=== PATIENT | female | born 1945 | race Caucasian/White ===

== ENCOUNTER 2024-08-28 12:10 | Emergency (ER) | payer MEDICARE, SELFPAY ==
--- NOTE | ~2024-08-28 | CT_ITS ---
EXAMINATION: CT CERVICAL SPINE WITHOUT CONTRAST CLINICAL INFORMATION: Mechanical fall, neck injury and pain COMPARISON: None available. TECHNIQUE: Multiple 3.0 and 0.6 mm axial images were obtained from base of skull to T1 levels without IV contrast enhancement. Sagittal and coronal 2.0 mm bone window images were reconstructed from axial image data. This CT examination was performed using dose optimization techniques as appropriate, variously including the following: *Automated exposure control *Adjustment of mA and/or kV according to patient size (this includes techniques or standardized protocols for targeted exams where dose is matched to indication/reason for exam; i.e. extremities or head) *Use of iterative reconstruction technique DLP: 272.38 mGy-cm FINDINGS: C1/C2: Bony structures are intact with normal alignment. There is no spinal stenosis. C2/C3: Bony structures are intact with normal alignment. There is no spinal stenosis. There is moderate asymmetric left C2/C3 neural foraminal stenosis. Bilateral apophyseal joints are intact with normal alignment. C3/C4: Bony structures are intact with normal alignment. There is no spinal stenosis. Bilateral C3/C4 neuroforamina are patent. Bilateral apophyseal joints are intact with normal alignment. C4/C5: Bony structures are intact with normal alignment. There is marked decrease in intervertebral disc height. Sharp anterior and posterior syndesmophytes are present. There is no spinal stenosis. There is moderate asymmetric left C4/C5 neural foraminal stenosis. Bilateral apophyseal joints are intact with normal alignment. C5/C6: Bony structures are intact with normal alignment. There is marked decrease in intervertebral disc height. Sharp anterior syndesmophytes are present. There is no spinal stenosis. Bilateral C5/C6 neuroforamina are patent. Bilateral apophyseal joints are intact with normal alignment. C6/C7: Bony structures are intact with normal alignment. There is marked decrease in intervertebral disc height. Sharp anterior syndesmophytes are present. There is no spinal stenosis. Bilateral C6/C7 neuroforamina are patent. Bilateral apophyseal joints are intact with normal alignment. C7/T1: Bony structures are intact with normal alignment. Sharp anterior syndesmophytes are present. There is no spinal stenosis. Bilateral C7/T1 neuroforamina are patent. Bilateral apophyseal joints are intact with normal alignment. Multilevel bilateral apophyseal joint and uncovertebral joint osteoarthritis with loss of joint space, sclerosis, facet hypertrophy and osteophytosis are seen. CT/CT cervical spine wo IV con IMPRESSION: 1. No evidence of acute fracture or dislocation in the cervical spine. 2. Moderate asymmetric left C2/C3 and C4/C5 neural foraminal stenosis. 3. Multilevel degenerative cervical spondylosis. Fleischner guidelines were followed. Electronically signed by: Danielle Montgomery MD 08/28/2024 03:19 PM [facility]
--- NOTE | ~2024-08-28 | CT_ITS ---
EXAMINATION: CT HEAD WITHOUT CONTRAST CLINICAL INFORMATION: Mechanical fall. Blunt head trauma without loss of consciousness, significant head injury and posttraumatic headache. COMPARISON: None available. TECHNIQUE: Contiguous axial imaging was performed from the skull base to vertex without intravenous administration of contrast. This CT examination was performed using dose optimization techniques as appropriate, variously including the following: *Automated exposure control *Adjustment of mA and/or kV according to patient size (this includes techniques or standardized protocols for targeted exams where dose is matched to indication/reason for exam; i.e. extremities or head) *Use of iterative reconstruction technique DLP: 789.75 mGy-cm FINDINGS: Ventricles, sulci and cisterns are dilated. There is no midline shift, no abnormal intra- or extra- axial fluid accumulation. Grimm and white matter differentiation is normal. Bone window images show no evidence of skull fracture. Polypoid mucosal lesion is seen at anterior medial corner of right maxillary sinus. CT/CT head/brain wo IV con IMPRESSION: 1. Mild age related cerebral atrophy. 2. No intracranial hemorrhage or skull fracture is seen. 3. No evidence of space occupying lesion could be found. 4. The current plain CT scan of the brain shows no diagnostic evidence of acute cerebral infarction. Electronically signed by: Danielle Montgomery MD 08/28/2024 03:37 PM EST
--- NOTE | ~2024-08-28 | XR_ITS ---
EXAMINATION: XR FOOT, RIGHT CLINICAL INFORMATION: fall, dorsal tenderness COMPARISON: None available. TECHNIQUE: AP, lateral, and oblique views of the right foot. FINDINGS: There is mild osteopenia. No fracture, dislocation, or suspicious bone lesion. Normal alignment. There is been prior osteotomy of the first MTP joint with an oblique screw in the distal first metatarsal, and prosthesis in the proximal phalanx of the first digit. There is a small dorsal calcaneal spur. Forefoot, midfoot, and hindfoot otherwise appear normal. No soft tissue abnormalities. XR/XR foot RT min 3V IMPRESSION: No acute findings right foot. Electronically signed by: Joshua Lovell MD 08/28/2024 03:13 PM [facility]
--- NOTE | ~2024-08-28 | XR_ITS ---
EXAMINATION: XR ANKLE, RIGHT CLINICAL INFORMATION: fall, tenderness COMPARISON: None available. TECHNIQUE: AP, lateral, and mortise views of the right ankle. FINDINGS: Normal bony mineralization. No fracture, dislocation, or suspicious bone lesion. Normal alignment. Mortise is intact. Talar dome is normal. Small corticated osseous density abutting the lateral malleolus is likely on the basis of old ligamentous injury. There is a small dorsal calcaneal spur. No joint effusion. Soft tissues appear normal. XR/XR ankle RT 2V IMPRESSION: No acute findings right ankle. Electronically signed by: Joshua Lovell MD 08/28/2024 03:11 PM [facility]
--- NOTE | ~2024-08-28 | CT_ITS ---
EXAMINATION: CT FACIAL BONES WITHOUT CONTRAST CLINICAL INFORMATION: Mechanical fall, facial injury, abrasions COMPARISON: None available. TECHNIQUE: Multiple 2.0 mm axial images of the facial bones were obtained without IV contrast enhancement. Bone window and soft tissue window images were reconstructed. Coronal and sagittal images of facial bones were reconstructed from axial image data. This CT examination was performed using dose optimization techniques as appropriate, variously including the following: *Automated exposure control *Adjustment of mA and/or kV according to patient size (this includes techniques or standardized protocols for targeted exams where dose is matched to indication/reason for exam; i.e. extremities or head) *Use of iterative reconstruction technique DLP: 267.86 mGy-cm FINDINGS: The visualized facial bones including bilateral zygomatic arches, bony orbits, pterygoid plates, mandibular rami and body of mandible are intact. Nasal bones are intact. Nasal septum shows mild buckling to the left by 0.2 cm. Polypoid mucosal lesion is seen at anterior medial corner of right maxillary sinus, measuring 0.8 cm in AP diameter, 0.8 cm in width, 1.3 cm in vertical height. Bilateral ethmoid sinuses show mild mucosal thickening. Bilateral sphenoid sinuses and frontal sinuses are clear. CT/CT facial bones wo IV con IMPRESSION: 1. No evidence of acute facial bone fracture. 2. Polypoid mucosal lesion at anterior medial corner of right maxillary sinus. 3. Mild buckling of nasal septum to the left by 0.2 cm. Electronically signed by: Danielle Montgomery MD 08/28/2024 03:11 PM [facility]
--- NOTE | ~2024-08-28 | XR_ITS ---
EXAMINATION: XR HUMERUS, RIGHT CLINICAL INFORMATION: fall with swelling COMPARISON: None available. TECHNIQUE: AP and lateral views of the right humerus. FINDINGS: Mildly comminuted spiral displaced fracture of the mid humeral diaphysis. There is approximately 1.4 cm of posterior lateral displacement and minimal posterior angulation of the distal fracture fragment. No significant override seen. There is soft tissue swelling surrounding the right humerus. The remainder of the bony and soft tissue structures appear intact and normal. XR/XR humerus RT IMPRESSION: 1. Mildly comminuted displaced spiral fracture mid right humeral diaphysis. Electronically signed by: Joshua Lovell MD 08/28/2024 03:04 PM [facility]
[2024-08-28 12:16] VITALS: BP 119/71; BP 120/70; PULSE 68; PULSE 74; RESP 20; TEMP 36.5; O2SAT 96; O2SAT 99; BMI 21.9
--- NOTE | 2024-08-28 12:17 | ED.GENADULT ---
HPI - General Adult General Chief complaint: Fall Stated complaint: TRIP/FALL,RUE DEFORMITY/PAIN,-LOC,-THINNERS PE EMS Time Seen by Provider: 08/28/24 12:17 Source: patient, EMS and RN notes reviewed Mode of arrival: EMS Limitations: no limitations History of Present Illness ED Provider: Meron HPI narrative: Patient is a 79-year-old female with history of hypothyroidism presenting to the emergency department with complaint of right upper arm pain and swelling after a fall prior to arrival. Patient states that she was ironing when she heard the phone ring and ran to answer the phone, tripping over the cord to the iron. She states that she fell onto her face and her right outstretched arm. Also complains of right ankle and dorsal foot pain. Medicated with IM fentanyl by EMS. Reports some numbness to right upper arm but able to move all fingers of right hand. Denies headache, vision changes, neck or back pain. MD complaint: arm pain Onset (ago): minute(s) Severity: severe Quality: aching Pain Consistency: constant Associated symptoms: other Related Data Previous Rx's ?Medication ?Instructions ?Recorded morphine 15 mg immediate release 15 mg PO Q8H PRN severe pain 08/28/24 tablet (scale score 7-10) #10 tabs ondansetron 4 mg disintegrating 4 mg PO Q8H PRN nausea and 08/28/24 tablet vomiting #10 tabs Allergies Allergy/AdvReac Type Severity Reaction Status Date / Time No Known Allergies Allergy Verified 08/28/24 12:23 Review of Systems Review of Systems: As per HPI Yes all other systems are reviewed and are negative Constitutional: Constitutional: Reports as per HPI [facility] Social History Social History Smoked in Last 30 Days: No Use of substances other than those prescribed or required for medical reasons: No Advance Directives: No Advance Directives Information Provided: Yes Physical Exam ED Vital Signs: Vital Signs - 24 hr 08/28/24 12:16 08/28/24 15:39 Temperature 97.7 F Pulse Rate 68 69 Respiratory Rate 20 18 Blood Pressure 119/71 99/50 L Pulse Oximetry 99 93 Oxygen Delivery Method Room Air Room Air BMI result Body Mass Index 21.9 Vital signs have been reviewed and appear to be correct. Blood pressure normal. Heart rate normal. Respiratory rate normal. Temperature normal. Oxygen saturation normal. Const General: cooperative, healthy appearing and no acute distress Orientation/consciousness: oriented to person, oriented to place, oriented to time and patient oriented x3 Limitations: no limitations [facility] Head: Yes normocephalic Head images: 1. abrasion 2. abrasion Ears: external ears normal and TM's normal bilaterally General nose exam: Normal external nose present, Normal nasal mucous membranes and turbinates present, Normal septum present and No nasal discharge present Face and sinus: Yes face symmetric and Yes sinus tenderness (left maxillary) Mouth: Normal oral and palatal mucosa present, oropharynx normal and moist mucous membranes Throat: Yes uvula midline Eyes Pupils: Equal, round and reactive pupils present EOM: EOMs intact bilaterally Neck Neck: Yes normal visual inspection, Yes full ROM, Yes trachea midline, Yes supple and No anterior neck swelling Chest Chest palpation & inspection: normal inspection of the chest and normal palpation of entire chest wall Resp Effort & Inspection: normal respiratory effort and able to speak in complete sentences Auscultation: clear to auscultation bilaterally Cardio Rate: regular rate Rhythm: regular rhythm Heart sounds: S1 normal heart sound present and S2 normal heart sound present GI Palpation (GI): Soft to palpation and nontender Auscultation: normoactive bowel sounds General: Yes no CVA tenderness Back/Spine/Pelvis Back: no CVA tenderness Skin General skin exam: elasticity normal and turgor normal Neuro General: oriented to person, oriented to place, oriented to time, patient oriented x3, moves all extremities, no focal motor deficits and CN's II-XI intact bilaterally Cranial nerves: Yes Equal, round and reactive pupils present Cognition (Neuro): normal cognition Extrem General: Yes full ROM, Yes no pedal edema and Yes no calf tenderness Right upper extremity: shoulder/upper arm Details: tenderness, swelling Location: of the mid-shaft humerus and deformity Location: of the mid-shaft humerus and Extremity exam: right hand Details: neuromotor exam normal, neurosensory exam normal, vascular exam Details: radial pulse present and normal ROM of fingers Right lower extremity: ankle Details: normal to inspection and tenderness Location: of the medial malleolus; no swelling and no ecchymosis and foot Details: tenderness Location: of the dorsal foot Location: proximally and vascular exam Details: dorsalis pedis pulse present, posterior tibial pulse present and normal capillary refill Psych Mental Status: mental status grossly normal Affect: normal affect Thought process: Normal thought process present Medications Administered Generic Name Dose Route Start Last Admin Trade Name Frenegrita PRN Reason Stop Dose Admin Sodium Chloride 500 mls @ 500 mls/hr 08/28/24 15:45 08/28/24 15:47 Ns IV 08/28/24 16:44 500 mls/hr .Q1H CIELO Administration Discontinued Medications Generic Name Dose Route Start Last Admin Trade Name Lesli PRN Reason Stop Dose Admin Morphine Sulfate 4 mg 08/28/24 12:22 08/28/24 12:33 Morphine Sulfate 4 Mg/Ml Cartridge IVPUSH 08/28/24 12:23 4 mg ONCE ONE Administration Protocol Morphine Sulfate 2 mg 08/28/24 15:36 08/28/24 15:47 Morphine Sulfate 2 Mg/Ml Cartridge IVPUSH 08/28/24 15:37 2 mg ONCE ONE Administration Protocol Ondansetron HCl 4 mg 08/28/24 13:15 08/28/24 14:52 Ondansetron Hcl 4 Mg/2 Ml Vial IVPUSH 08/28/24 13:16 4 mg ONCE ONE Administration Ondansetron HCl 4 mg 08/28/24 15:36 08/28/24 15:47 Ondansetron Hcl 4 Mg/2 Ml Vial IVPUSH 08/28/24 15:37 4 mg ONCE ONE Administration Medical Decision Making Medical Decision Making MDM Narrative: Patient is a 79-year-old female with history of hypothyroidism presenting to the emergency department with complaint of right upper arm pain and swelling after a fall prior to arrival. On exam patient is awake, A+Ox3, VS WNL, afebrile, normal neurological exam without focal deficits, physical exam findings as above. Given reported symptoms and physical exam findings, initial differential includes humeral fracture, ICH, skull or cervical vertebral fracture or subluxation, facial fracture, right ankle/foot fracture. X-ray right humerus notable for mildly comminuted displaced spiral fracture mid right humeral diaphysis. No acute fracture right ankle or foot. CT head and C-spine without evidence of ICH, skull or cervical vertebral fracture or subluxation. CT facial bones notable for no acute facial bone fracture. My interpretation is in agreement with the radiologist's interpretation. Case discussed with albaro White who recommends discharge home in sling with outpatient ortho follow-up. Results discussed with patient and family and all questions answered. Patient feels comfortable with discharge home, was offered PT eval/case management which she declined. States that she has previously fractured her right wrist and is comfortable only using her left arm. Will discharge with prescription for Zofran and morphine, discussed with patient that this can cause drowsiness leading to increased risk for falls and should be used with caution. Patient and significant other verbalized understanding of this. Will refer patient to orthopedics for further evaluation and management of fracture. Return precautions discussed with patient and family at bedside. Patient and family verbalized understanding of and agreement with plan. Differential Diagnosis Differential Diagnoses: The differential diagnosis associated with the presentation includes As per [facility] Admission/Observation Consideration of admission/observation: Escalation of care including admission/observation considered Patient would have been admitted to the hospital had their work up had any findings where hospital admission was appropriate and their clinical presentation warranted hospital admission. Consult Healthcare Provider Management of the patient was discussed with: Road Roller Operator (albaro White) Independent Interpretation I performed an independent interpretation of an: Plain X-Ray and CT Scan Radiology Impression Discussion of test interpretation with radiology: I have reviewed the radiologist's reading. Radiologist Impression: IMPRESSION: 1. Mild age related cerebral atrophy. 2. No intracranial hemorrhage or skull fracture is seen. 3. No evidence of space occupying lesion could be found. 4. The current plain CT scan of the brain shows no diagnostic evidence of acute cerebral infarction. IMPRESSION: 1. No evidence of acute facial bone fracture. 2. Polypoid mucosal lesion at anterior medial corner of right maxillary sinus. 3. Mild buckling of nasal septum to the left by 0.2 cm. MPRESSION: 1. No evidence of acute fracture or dislocation in the cervical spine. 2. Moderate asymmetric left C2/C3 and C4/C5 neural foraminal stenosis. 3. Multilevel degenerative cervical spondylosis. IMPRESSION: 1. Mildly comminuted displaced spiral fracture mid right humeral diaphysis. IMPRESSION: No acute findings right foot. MPRESSION: No acute findings right ankle. Independent Historian Clinical information obtained from an independent historian. History obtained from or confirmed by: Spouse External Record Review External record reviewed: Inpatient record, Office record and Outpatient record Prescription Management I considered prescription management with: Pain Medication and Other Discharge Plan Discharge Clinical Impression: Closed right humeral fracture Patient Disposition: Home, Self-Care Instructions: Arm Fracture in Adults (ED), How to Use a Sling (ED), ORIF of an Arm Fracture (DC) Additional Instructions: You have been evaluated in the emergency department today for injuries after a fall. Your x-ray shows a significant fracture of your right upper arm (humerus). We have placed you in a sling and swathe which should remain in place until you see the orthopedic specialists. Please rest and ice your arm, and use pillows for splinting as needed. We recommend you take 600mg ibuprofen every 6 hours or 650mg Tylenol every 6 hours as needed for pain. If needed you can alternate these medications as they take 1 medication every 3 hours. For instance at noon take ibuprofen, then at 3:00 p.m. take Tylenol, then at 6:00 p.m. take ibuprofen. You are being prescribed morphine for severe pain. Please note, this medication can make you drowsy and increase your risk for falls, use with caution and do not take if you are home alone. You are being prescribed ondansetron for nausea, use this as prescribed. Call the orthopedic office to schedule a follow-up appointment, they will not call you. Return to the emergency department if you experience worsening pain, numbness, tingling, change of color in your arm/hand, or any other concerning symptoms. Prescriptions: New ondansetron 4 mg tablet,disintegrating 4 mg PO Q8H PRN (Reason: nausea and vomiting) Qty: 10 0RF morphine 15 mg tablet 15 mg PO Q8H PRN (Reason: severe pain (scale score 7-10)) Qty: 10 0RF Rx Instructions: Partial Fill upon patient request. [place] [facility] [place]Provider Group] - 1 day (Mildly comminuted displaced spiral fracture mid right humeral diaphysis.) Print Language: Turkish
[2024-08-28] MEDS: Morphine Sulfate 4 MG/ML CARTRIDGE IVPUSH (12:33)
--- OUTSIDE RECORDS SUMMARY | 2024-08-28 12:38 | XMS_ITS | Patient Health Record ---
Author Organization [facility] daniel Rochelle Address [address] [place] [address] Care Team Providers Care Improvement Director Name Role Phone Elia Wilkins MD, [facility] Provi ricardo Unavailable EsvinQuang Unavailable [phone] Allergies No Known Allergies Reason For Referral No Information Medications Medication SIG (Take, Route, Frequency, Duration) Notes Start Date End Date Status Magnesium Not-Taking Probiotic Not-Taking Turmeric Not-Taking Glucosamine Not-Taki ng Vitamin C Not-Taking Multivitamin Not-Haile ing Calcium Not-Taking Levothyroxine Sodium 100 MCG 1 tablet Orally Once a day Active Premarin 0.625 MG Orally No t-Taking Tretinoin 0.05 % 1 application in the evening to face Externally Once a day Active Immunizations Vaccine Route Administration Date Status Comme nts Influenza Unknown 09/21/2017 Administered Social History Tobacco Use: Social History Observation Description Date Details (start date - stop date) Former Smoker NA - NA Tobacco Use/Smoking Question Answer Notes Are you a: former smoker Additional Findings: Tobacco Non-User Current no n-smoker Alcohol Screen Question Answer Notes Did you have a drink containing alcohol in the p ast year? Yes Points 0 Interpretation Negative Tobacco use other than smoking: Question Answer Notes Are you an other tobacco user? No Problems Problem Type SNOMED Code ICD Code Onset Dates Problem Status W/U Status Risk Notes Problem Tinea unguium (143570382) Tinea unguium (B35.1) Active confirmed Topical treatment since Plan Of Treatment Pending Test Test Name Order Date [id number] NAIL, 6 OR MORE 12/14/2020 Insurance Providers Payer Name Payer Address Payer Phone Subscriber Number Group Number Insured Name Patient Relationship to Insured Coverage Start Date Coverage End Date Medicare National [facility] [employer] [address] [place] [address] [id number] Mary Ray Self - patient is the insured [employer] [address] [place] [address] [id number] [employer] Mary Self - patient is the insured Medical (General) History Medical History History ICD Code Anemia Arthritis Back,Hip,and Knee pain Broken bones Diverticulosis Hiatal hernia chronic sinusitis Thyroid disorder Measles Mumps Joint implants/screws Cataracts Osteoporosis thyroid Chicken pox Surgical History Surgery Date(Month/Year) D&C 1965 Right great toe - Osmin implant 2004
--- OUTSIDE RECORDS SUMMARY | 2024-08-28 12:38 | XMS_ITS | Data Portability ---
Author Organization [facility] Address [address] [facility], [address] [place] [address] Care Team Providers Care Supervisor Kennel Name Role Phone KYA PATEL Primary Care Provide r Assessment No assessment recorded. Plan of Treatment Reminders Order Date Submit Date Provider Last Modified By Organization Details Last Modified Time Details Appointments None recorded. Lab None recorded. 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 Strengtheni ng after 4 weeks if tolerates1- 3 x per week 6-8 weeks 2022 023 [email or web address] Not available 12:38:05 Procedures None recorded. Surgeries orthopaedic surgery (SURG) 2021 022 [facility], [address] [place], [address], 2 08:44:07 Imaging None recorded. Medication Orders None recorded. Patient TargetsNo targets recorded. Patient Instructions Encounter Date Encounter Id Patient Instructions Last Modified By Organization Details Last Modified Time 04/13/2022 [id number] The findings, diagnosis, and options are discussed including potential treatments. The decision was made to continue therapy and home stretching. She can continue with the Dynasplint 1-2 months. This is based on symptoms and clinical findings. All questions are answered. Follow up will be arranged as noted in several months. We will consider timing for small ring finger MP releases should this be needed. Patient will call if problems or questions. Not available 04/13/2022 13:54:25 07/17/2022 [id number] The findings, diagnosis, and options are discussed with the patient. The potential surgical procedure options were also outlined. Based on symptoms and findings, the decision was made to plan for wrist extensor tenolysis 2nd to 5th compartments, ring and small MP contracture releases and possible botox injections for FCU and FCR muscles. The risks and benefits are fully outlined including (but not limited to): infection, persistent symptoms, limited bone healing, instability, heterotopic bone, complications of hardware or implant and neurovascular or tendon injury. All questions are answered. Pre-testing to be arranged. Follow up will be at the time of surgery. The patient will call if problems or questions. Not available 07/17/2022 22:36:43 09/21/2022 [id number] Patient doing we ll s/p R wrist extensor tenolysis, R RF MP joint contracture release, R SF MP joint contracture release DOS 09/15/22. Discussed with patient that during surgery even after tenolysis she still had significant stiffness. Discussed that a for her to make a functional fist, it would be helpful if her wrist was held at neutral or slightly extended, which is difficult for her. We will initiate occupational therapy, as well as provide her with a wrist brace to keep wrist up in a functional position. Followup in 4 to 5 weeks - telehealth visit The patient is seen and examined with Dr. Ponce. Agree with above findings and plan. SHEILA Not available 09/21/2022 13:09:44 11/16/2022 [id number] Patient doing we ll s/p R wrist extensor tenolysis, R RF MP joint contracture release, R SF MP joint contracture release DOS 09/15/22. She will complete course of therapy. We reviewed possible benefits for wrist fusion. She would like to avoid additional surgery. She will try to golf in 2 months. If issues with this she would like to return for evaluation. She will call otherwise if problems or questions. Not available 11/16/2022 13:30:48 Reason for Referral s/p ring small MP joint cont racture releases and extensor tenolysis 2-6 compartmentsevaluation and treatmentA AA PROM for wrist and fingers. Strengthening after 4 weeks if tolerates1-3 x per week 6-8 weeks Referring Physician: Paris Gomes, Orthopedic Surgery, Encounter Date: 09/21/2022 Results Created Date Observation Date Name Description Value Unit Range Abnormal Flag Note LastModifiedBy Organization Detail LastModifiedTime 07/17/20 22 07/17/2022 xr hand right 3 views minim um Fin al Report EXAM#: [id number] PROCED URE: DXR 0068 XR HAND RIGHT 3 VIEWS MINIMU M Jul 17 2022 1:38PM CLINIC AL INDICA TION: pain in right wrist Compar farrah: None FINDIN GS: The bones are osteop enic. Old tracks from prior hardwa re at the distal radius . Radioc arpal joint space narrow ing is mild. Ulnar lunate joint space narrow ing is modera te-mar ked. Long finger PIP and DIP, index finger DIP, ring finger PIP and DIP and small finger DIP joint spaces exhibi t narrow ing with small osteop hytes, compat ible with degene ration . NUMBER OF IMAGES : 3 Report ed by : JACKIE TOM M.D. On: Jul 17 2022 2:33P Signed by: VAISHALI Prado, JACKIE Vasquez On: Jul 17 2022 2:33P [email or web address] [facility] Radiology [address], [place], [address], 07/17/2022 15:40:11 07/17/20 22 07/17/2022 XR, hand, 3 or more view No observ ation record ed. [email or web address] Not Available 2021 15:42:43 Result Notes None recorded. Procedures Surgical History Date Name Laterality Status Provider Name and Address Organization Details Recorded Time 2 Orthopaedic Surgery completed Pat Shields [facility] 09/21/2022 12:47:37 2 Orthopaedic Surgery completed Cha Adhikari [facility] 01/16/2022 13:54:53 2 Cortisone Injection(s) completed PARIS GOMES MD [address] [place] [address], [phone], [facility] 09/22/2021 21:06:36 1 Orthopaedic Surgery completed Cha Blakenal [facility] 07/28/2021 13:07:14 Orthopaedic Surgery completed [facility] Onofre [facility] 07/28/2021 13:09:37 Imaging Results Imaging Date Name Status LastModified by Organiz ation Details LastModified Time 07/17/2022 xr hand right 3 views minimum completed [email or web address] [facility] [address], [place], [address], 07/17/2022 15:40:11 07/17/2022 XR, hand, 3 or more view completed [email or web address] Information not available 07/17/2022 15:42:43 Procedure Notes None recorded. Medical Equipment None Reported. Allergies No known drug allergies Medications Name Sig Start Date Stop Date Status Note LastModified by Organization Details LastModified Time fluconazole 150 mg tablet 09/19 completed Not Available Not Available Not Available Kenalog 40 mg/mL suspension for injection Take 40 mg by injection route. 11/03 completed Not Available Not Available Not Available levothyroxi ne 100 mcg tablet TAKE 1 TABLET BY MOUTH ONCE DAILY . APPOINTME NT REQUIRED FOR FUTURE REFILLS 02/16 completed Not Available Not Available Not Available cephalexin 500 mg capsule TAKE 1 CAPSULE BY MOUTH FOUR TIMES A DAY FOR 7 DAYS 02/16 completed Not Available Not Available Not Available levothyroxi ne 125 mcg tablet active Not Available Not Available Not Available estradiol 0.01% (0.1 mg/gram) vaginal cream active Not Available Not Available Not Available methylpredn isolone 4 mg tablets in a dose pack 02/16 completed Not Available Not Available Not Available levothyroxi ne 112 mcg tablet TAKE 1 TABLET BY MOUTH ONCE DAILY active Not Available Not Available No t Available oxycodone 5 mg tablet TAKE 1 TABLET BY MOUTH EVERY 4 HOURS NEEDED FOR PAIN 02/16 completed Not Available Not Available Not Available levothyroxi ne 02/16 completed Not Available Not Available Not Available Vitals Date Recorded Body height Body mass index (BMI) Body weight Provider Name and Address Organization Details Last Updated DateTime 02/16/2022 170.18 cm 22.7 kg/m2 07284.89 g Gabriel Montana [facility] 02/16/2022 13:23:34 Date Recorded Body height Body mass index (BMI) Body weight Provider Name and Address Organization Details Last Updated DateTime 04/13/2022 170.18 cm 22.7 kg/m2 70548.89 g Joya Nunn [facility] 04/13/2022 13:08:56 Date Recorded Body height Provider Name an d Address Organization Details Last Updated DateTime 07/17/2022 170.18 cm Cristian Schneider [facility] 07/17/2022 13:10:50 Date Recorded Body height Provider Name an d Address Organization Details Last Updated DateTime 09/21/2022 170.18 cm Pat Shields [facility] 09/21/2022 12:47:02 Date Recorded Body height Provider Name an d Address Organization Details Last Updated DateTime 11/16/2022 170.18 cm Courtney Donovan [facility] 11/16/2022 13:04:25 Social History Question Answer Notes LastModified by Organizat ion Details LastModified Time Tobacco Smoking Status Former Smoker Cha Adhikari [facility] 07/28/2021 13:07:11 What Is Your Level Of Alcohol Consumption? Moderate Information not available 07/28/2021 What Is Your Level Of Caffeine Consumption? Moderate Information not available 07/28/2021 Do You Or Have You Ever Used E-cigarettes Or Vape? 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 Never Used Smokeless Tobacco Information not available 07/28/2021 How Much Tobacco Do You Smoke? No Information not available 07/28/2021 What Types Of Sporting Activities Do You Participate In? Walking, Gardening, Golf, Housecleaning, Floor Exercises Information not available 07/28/2021 How Many Years Have You Smoked Tobacco? 20 Information not available 07/28/2021 Sex: Unknown Functional Status Question Answer Note LastModified by Organization D etails LastModified Time What is your exercise level? Moderate Information not available 07/28/2021 Mental Status None recorded. Family History Relationship Description Onset Age of this Age Resolved Age Notes LastModified by Organization Details LastModified Time Father Deep venous thrombosis [email or web address] Not available 11/16 13:04:29 Unspecified Relation Deep venous thrombosis [email or web address] Not available 11/16 13:04:29 Brother Pulmonary embolism [email or web address] Not available 2022 13:04:29 Medical History Condition Response Blood Clots / Phlebitis N Heart Problems N HIV or AIDS N High Blood Pressure N Depression or Anxiety N Irregular Heartbeat N MRSA N Any Other Significant Medical Issues N Emphysema / Chronic Bronchitis N Reaction to General/Local Anesthesia N Weight Gain / Loss N Hepatitis / Jaundice N Kidney / Bladder Infections N Diabetes N Bleeding Disorder N Hearing Loss N Angina, Heart Failure or Attack N Seizures / Epilepsy N Night Sweats N Osteoarthritis / Rheumatoid arthritis / Other Y Cancer N Stroke N Chemical Dependency / Alcoholism N Ulcer / Stomach Bleeding / Indigestion N Visual Loss or Glaucoma N Thyroid Disorder Y Psoriasis / Skin Rash N Heart Disease N Pulmonary Embolism N Asthma / Shortness of Breath / Sleep Flatcar Whacker ea (please specify) N Gynecological HistoryNo gynecological history recorded. Obstetrics History GPAL:G 0 P 0 0 0 0 Immunizations Vaccine Type Date Status Note Provider Nam e and Address Organization Details Recorded Time COVID-19, mRNA, LNP-S, PF, 100 mcg/0.5mL dose or 50 mcg/0.25mL dose [facility] 13:08:08 COVID-19, mRNA, LNP-S, PF, 100 mcg/0.5mL dose or 50 mcg/0.25mL dose 1 [facility] 07/28/2021 13:08:15 COVID-19, mRNA, LNP-S, PF, 100 mcg/0.5mL dose or 50 mcg/0.25mL dose 1 [facility] 09/22/2021 11:40:58 Influenza, split virus, quadrivalent, preservative 1 completed [facility] 09/22/2021 11:41:12 Past Encounters Encounter ID Performer Location Encounter Start Date Encounter Closed Date Diagnosis/Indication Diagnosis SNOMED-CT Code Diagnosis ICD10 Code [id number] PARIS GOMES MD [facility] [address] [place], [place] [address] [address] 07/28/2021 12:27:50 07/28/2021 13:49:27 Closed fracture of distal end of right radius 7216338157 7412659 S52.501P Stiffness of joint of right hand 9382708146 01002 M25.641 Contractur e of joint of right wrist 6324552841 21524 M24.531 [id number] PARIS GOMES MD [facility] [address] [place], [place] [address] [address] 09/22/2021 11:13:15 09/22/2021 12:12:26 Contracture of joint of right wrist 0139801059 38264 M24.531 Closed fra cture of distal end of right radius 4175821810 9492445 S52.501P Stiffness of joint of right hand 2161836103 90746 M25.641 [id number] PARIS GOMES MD [facility] [address] [place], [place] [address] [place] [address] 11/03/2021 10:49:19 11/03/2021 13:54:42 Contracture of joint of right wrist 8791183323 02834 M24.531 Closed fra cture of distal end of right radius 7513015725 6306595 S52.501P Stiffness of joint of right hand 1742966387 37467 M25.641 [id number] Mayela Bowen [address] [address] 12/20/2021 09:31:21 12/20/2021 09:48:46 Contracture of joint of right wrist 6167948704 68746 M24.531 Closed fra cture of distal end of right radius 4521905679 2145158 S52.501P Stiffness of joint of right hand 8093294888 99937 M25.641 [id number] PARIS GOMES MD [facility] [address] [facility] [address] 01/16/2022 13:11:58 01/16/2022 14:21:09 Contracture of joint of right wrist 9012980623 25069 M24.531 [id number] PARIS GOMES MD [facility] [address] [place] [address] 04/13/2022 13:04:23 04/13/2022 13:35:34 Contracture of joint of right wrist 7786578975 30814 M24.531 Closed fra cture of distal end of right radius 1880144649 7397298 S52.501P Stiffness of joint of right hand 3254754199 56173 M25.641 [id number] Mayela Bowen [facility] [address] [place] [address] 07/17/2022 13:01:17 07/17/2022 14:45:46 Contracture of joint of right wrist 6182694704 07548 M24.531 Stiffness of joint of right hand 0471147169 44769 M25.641 Closed fra cture of distal end of right radius 6216984888 1726843 S52.501P Adhesion o f tendon of hand 945840319 M67.753 [id number] PARIS GOMES MD [facility] [address] [place] [address] 09/21/2022 12:41:10 09/21/2022 13:11:00 Contracture of joint of right wrist 1348636451 33281 M24.531 Stiffness of joint of right hand 6605891276 75704 M25.641 Closed fra cture of distal end of right radius 3578187328 1453436 S52.501P [id number] PARIS GOMES MD [facility] [address] [place] [address] 11/16/2022 13:03:00 11/16/2022 13:25:54 Contracture of joint of right wrist 1717999627 80481 M24.531 Stiffness of joint of right hand 2225252393 69551 M25.641 Closed fra cture of distal end of right radius 7939653612 3605963 S52.501P Health Concerns Section Related Observation LastModified by Organization Detai ls LastModified Time None Recorded Concern Status LastModified by Organization Details LastModified Time None Recorded Advance Directives Directive None Recorded Payers Encounter Date Sequence Insurance Name Policy Number Policy Herron Covered Member ID Herron Member ID Guarantor Name 04/13/2022 1 [place] [employer] Mary D Kostek [id number] Mary Kostek 04/13/2022 2 [place] [id number] Mary D Kostek [id number] Mary Kostek 07/17/2022 1 [place] Mary D Kostek [id number] Mary Kostek 07/17/2022 2 [place] [id number] Mary D Kostek [id number] Mary Kostek 09/21/2022 1 [place] Mary D Kostek [id number] Mary Kostek 09/21/2022 2 [place] [id number] Mary D Kostek [id number] Mary Kostek 11/16/2022 1 [place] Mary D Kostek [id number] Mary Kostek 11/16/2022 2 [place] [id number] Mary D Kostek [id number] Mary Kostek Notes Date Note Type Note Provider Name and Address Organization Details Recorded Time 04/13/2022 text/html The patient returns for evaluation s/p wrist arthroscopy, release of wrist flexion contracture & hardware removal. .She has been improving since last visit with therapy and time. No new paresthesias. No interval medical problems are noted. She is again with her . PARIS GOMES MD [address] [place] [address], [phone], [facility] 04/13/2022 13:54:27 07/17/2022 text/html The patient returns for evaluation s/p wrist arthroscopy, release of wrist flexion contracture & hardware removal. .She has been plateaued since last visit Following surgery she attended therapy and used a dynasplint. No new paresthesias. No interval medical problems are noted. She is again with her . PARIS GOMES MD [address] [place] [address], [phone], [facility] 07/17/2022 22:36:48 09/21/2022 text/html Patient is s/p R wrist extensor tenolysis, R RF MP joint contracture release, R SF MP joint contracture release, DOS 09/15/22. She has been doing very well at home. Denies any pain. Has been in a splint. PARIS GOMES MD [address] [place] [address], [phone], [facility] 09/21/2022 13:09:47 11/16/2022 text/html Patient is seen again regarding right wrist and hand s/p R wrist extensor tenolysis, R RF MP joint contracture release, R SF MP joint contracture release, DOS 09/15/22.She has been attending therapy and this has included brace use with home exercises. she indicates interval improvement albeit with some continued small finger stiffness and overall flexion posture to wrist. PARIS GOMES MD [address] [place] [address], [phone], [facility] 11/16/2022 13:30:51 OBGyn Episode No OBEpisode recorded.
[2024-08-28] MEDS: ondansetron HCL 4 MG/2 ML VIAL IVPUSH ×2 (14:52→15:47)
[2024-08-28 15:39] VITALS: BP 99/50; PULSE 69; RESP 18; O2SAT 93
[2024-08-28] MEDS: Morphine Sulfate 2 MG/ML CARTRIDGE IVPUSH (15:47)
[2024-08-28] MEDS: 0.9 % Sodium Chloride 500 ML IV (15:47)
[2024-08-28 17:11] VITALS: BP 132/48; PULSE 67; RESP 16; TEMP 36.6; O2SAT 94
== END 2024-08-28 17:13 | disposition home or self-care (01) ==
PROVIDERS: Emergency Provider Student in an Organized Health Care Education/Training Program
DX: S42.351A Displaced comminuted fracture of shaft of humerus, right arm, initial encounter for closed fracture (principal); W01.0XXA Fall on same level from slipping, tripping and stumbling without subsequent striking against object, initial encounter; M25.571 Pain in right ankle and joints of right foot; Y93.E4 Activity, ironing; Y92.019 Unspecified place in single-family (private) house as the place of occurrence of the external cause; Y99.9 Unspecified external cause status
CPT/HCPCS: 70450; 70486; 72125; 73060; 73600; 73630; 96374; 96375; 96376; 99284; J2270; J2405

== ENCOUNTER → 2024-08-28 12:20 | Outpatient (BNV) | payer MEDICARE, SELFPAY | PROVIDERS: Emergency Provider Student in an Organized Health Care Education/Training Program; Visit Provider Radiology Diagnostic Radiology | DX: M79.671 Pain in right foot (principal); S42.341A Displaced spiral fracture of shaft of humerus, right arm, initial encounter for closed fracture | CPT/HCPCS: 73060; 73600; 73630 ==

== ENCOUNTER 2024-09-01 09:16 | Outpatient (REF) | payer MEDICARE, SELFPAY ==
--- NOTE | ~2024-09-01 | XR_ITS ---
EXAMINATION: XR HUMERUS RIGHT CLINICAL INFORMATION: Unspecified fracture of shaft of humerus, right arm, initial encounter for closed fracture S42.301A. COMPARISON: XR Right humerus 08/28/2024 TECHNIQUE: AP and lateral views of the right humerus. FINDINGS: Comminuted, angulated, displaced right humeral fracture. The degree of displacement and angulation is similar to prior exam, accounting for differences in technique. Diffuse osteopenia. The visualized lung field is clear. XR/XR humerus RT IMPRESSION: Comminuted, angulated, displaced right humeral fracture. The degree of displacement and angulation is similar to prior exam, accounting for differences in technique. Electronically signed by: Daniel Jacobs MD 09/09/2024 01:34 PM [facility] Workstation: [id number]
--- OUTSIDE RECORDS SUMMARY | 2024-09-02 09:22 | XMS_ITS | Patient Health Record ---
Author Organization [facility] daniel [place] Address [address] [place] [address] Care Team Providers Care Corrosion Technician Name Role Phone Elia Wilkins MD, [facility] Primary Care Provi ricardo Unavailable Esvin Quang Unavailable [phone] Allergies No Known Allergies Reason For Referral [...] W/U Status Risk Notes Problem Tinea unguium (086761412) Tinea unguium (B35.1) Active confirmed Topical treatment since Plan Of Treatment Pending Test Test Name Order Date [id number] NAIL, 6 OR MORE 12/14/2020 Insurance Providers Payer Name Payer Address Payer Phone Subscriber Number Group Number Insured Name Patient Relationship to Insured Coverage Start Date Coverage End Date Medicare [employer] [facility] [employer] [address] [place] [address] [id number] Mary Ray Self - patient is the insured [employer] [address] [place] [address] [id number] [employer] Mary Self - patient is the insured Medical (General) History Medical History History ICD Code Anemia Arthritis Back,Hip,and Knee pain Broken bones Diverticulosis Hiatal hernia chronic sinusitis Thyroid disorder Measles Mumps Joint implants/screws Cataracts Osteoporosis thyroid Chicken pox Surgical History Surgery Date(Month/Year) D&C 1965 Right great toe - Osmin implant 2004
== END 2024-09-01 09:17 | disposition home or self-care (01) ==
LOC: HO.HOSX 09:16
DX: S42.301A Unspecified fracture of shaft of humerus, right arm, initial encounter for closed fracture (principal)
CPT/HCPCS: 73060; 99202

== ENCOUNTER 2024-09-01 13:10 | Outpatient (AMB) | payer MEDICARE, SELFPAY ==
--- OUTSIDE RECORDS SUMMARY | 2024-09-01 13:12 | XMS_ITS | Data Portability ---
Author Organization [facility] Office Address [address], [address] [place] [address] Care Team Providers Care Computer Scientist Name Role Phone KYA PATEL Primary Care [...] x per week 6-8 weeks 2022 023 [email or web address] Not available 12:38:05 Procedures None recorded. Surgeries orthopaedic surgery (SURG) 2021 022 [email or web address] [facility], [address] [place], [address], 08:44:07 Imaging None recorded. Medication Orders None recorded. Patient TargetsNo targets recorded. Patient Instructions Encounter Date Encounter Id Patient Instructions Last Modified By Organization Details Last Modified Time 04/13/2022 [id number] The findings, diagnosis, and options are discussed [...] or questions. Not available 04/13/2022 13:54:25 07/17/2022 [id number] The findings, diagnosis, and options are discussed [...] or questions. Not available 07/17/2022 22:36:43 09/21/2022 [id number] Patient doing we ll s/p R wrist [...] plan. SHEILA Not available 09/21/2022 13:09:44 11/16/2022 [id number] Patient doing we ll s/p R wrist [...] views minim um Fin al Report EXAM#: [id number] PROCED URE: DXR 0068 XR HAND [...] JACKIE Vasquez On: Jul 17 2022 2:33P [email or web address] [facility] [address] [facility] [address], [place], [address], 07/17/2022 15:40:11 07/17/20 22 07/17/2022 XR, hand, 3 or more view No observ ation record ed. [email or web address] Not Available 2021 15:42:43 Result Notes None recorded. Procedures Surgical History Date Name Laterality Status Provider Name and Address Organization Details Recorded Time 2 Orthopaedic Surgery completed Pat Shields [facility] 09/21/2022 12:47:37 2 Orthopaedic Surgery completed Cha Adhikari [facility] 01/16/2022 13:54:53 2 Cortisone Injection(s) completed PARIS GOMES MD [address] [place] [address], [phone], [facility] 09/22/2021 21:06:36 1 Orthopaedic Surgery completed Cha Blakenal [facility] 07/28/2021 13:07:14 Orthopaedic Surgery completed [facility] Onofre [facility] 07/28/2021 13:09:37 Imaging Results Imaging Date Name Status LastModified by Organiz ation Details LastModified Time 07/17/2022 xr hand right 3 views minimum completed [email or web address] [facility] [address], [place], [address], 07/17/2022 15:40:11 07/17/2022 XR, hand, 3 or more view completed [email or web address] Information not available 07/17/2022 15:42:43 Procedure Notes [...] Updated DateTime 02/16/2022 170.18 cm 22.7 kg/m2 45758.89 g Gabriel Montana [facility] 02/16/2022 13:23:34 Date Recorded Body height Body mass index (BMI) Body weight Provider Name and Address Organization Details Last Updated DateTime 04/13/2022 170.18 cm 22.7 kg/m2 75873.89 g Joya Nunn [facility] 04/13/2022 13:08:56 Date Recorded Body height Provider Name an d Address Organization Details Last Updated DateTime 07/17/2022 170.18 cm Cristian Schneider [facility] 07/17/2022 13:10:50 Date Recorded Body height Provider Name an d Address Organization Details Last Updated DateTime 09/21/2022 170.18 cm Pat Shields [facility] 09/21/2022 12:47:02 Date Recorded Body height Provider Name an d Address Organization Details Last Updated DateTime 11/16/2022 170.18 cm Courtney Donovan [facility] 11/16/2022 13:04:25 Social History Question Answer Notes LastModified by Organizat ion Details LastModified Time Tobacco Smoking Status Former Smoker Cha Adhikari [facility] 07/28/2021 13:07:11 What Is Your Level Of Alcohol Consumption? Moderate Information not available 07/28/2021 What Is Your Level Of Caffeine Consumption? Moderate Information not available 07/28/2021 Do You Or Have You Ever Used E-cigarettes Or Vape? 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 Information not available 07/28/2021 Do You Or [...] Heart Problems N HIV or AIDS N Depression or Anxiety N High Blood Pressure N Irregular Heartbeat N MRSA N Emphysema / Chronic Bronchitis N Any Other Significant Medical Issues N Reaction to General/Local Anesthesia N Weight Gain / Loss N Hepatitis / Jaundice N Kidney / Bladder Infections N Diabetes N Bleeding Disorder N Hearing Loss N Angina, Heart Failure or Attack N Night Sweats N Seizures / Epilepsy N Osteoarthritis / Rheumatoid arthritis / Other Y Cancer N Stroke N Chemical Dependency / Alcoholism N Ulcer / Stomach Bleeding / Indigestion N Visual Loss or Glaucoma N Psoriasis / Skin Rash N Thyroid Disorder Y Heart Disease N Asthma / Shortness of Breath / Sleep Proof Coin Collector ea (please specify) N Pulmonary Embolism N Gynecological HistoryNo gynecological history recorded. Obstetrics History GPAL:G 0 P 0 0 0 0 Immunizations Vaccine Type Date Status Note Provider Nam e and Address Organization Details Recorded Time COVID-19, mRNA, LNP-S, PF, 100 mcg/0.5mL dose or 50 mcg/0.25mL dose 1 [facility] 07/28/2021 13:08:08 COVID-19, mRNA, LNP-S, PF, 100 mcg/0.5mL dose or 50 mcg/0.25mL dose 1 [facility] 07/28/2021 13:08:15 COVID-19, mRNA, LNP-S, PF, 100 mcg/0.5mL dose or 50 mcg/0.25mL dose 1 [facility] 09/22/2021 11:40:58 Influenza, split virus, quadrivalent, preservative 1 completed [facility] 09/22/2021 11:41:12 Past Encounters Encounter ID Performer Location Encounter Start Date Encounter Closed Date Diagnosis/Indication Diagnosis SNOMED-CT Code Diagnosis ICD10 Code [id number] PARIS GOMES MD [facility] [address] [place], [place] [address] [facility] [place] [address] 07/28/2021 12:27:50 07/28/2021 13:49:27 Closed fracture of distal end of right radius 2836468357 4511350 S52.501P Stiffness of joint of right hand 1640161335 83707 M25.641 Contractur e of joint of right wrist 7260733592 10372 M24.531 [id number] PARIS GOMES MD [facility] [address] [place], [place] [address] [address] 09/22/2021 11:13:15 09/22/2021 12:12:26 Contracture of joint of right wrist 0386998084 08655 M24.531 Closed fra cture of distal end of right radius 3114793675 1128472 S52.501P Stiffness of joint of right hand 3409315325 68773 M25.641 [id number] PARIS GOMES MD [facility] [address] [place], [place] [address] [address] 11/03/2021 10:49:19 11/03/2021 13:54:42 Contracture of joint of right wrist 2689663428 78571 M24.531 Closed fra cture of distal end of right radius 0939352263 0006518 S52.501P Stiffness of joint of right hand 2381184320 47124 M25.641 [id number] Mayela Bowen [address] [address] 12/20/2021 09:31:21 12/20/2021 09:48:46 Contracture of joint of right wrist 7036112753 80261 M24.531 Closed fra cture of distal end of right radius 9643943789 4014492 S52.501P Stiffness of joint of right hand 0284992894 08464 M25.641 [id number] PARIS GOMES MD [facility] [address] [facility] [place] [address] 01/16/2022 13:11:58 01/16/2022 14:21:09 Contracture of joint of right wrist 1635943730 13680 M24.531 [id number] PARIS GOMES MD [facility] [address] [place] [address] 04/13/2022 13:04:23 04/13/2022 13:35:34 Contracture of joint of right wrist 1906171653 40133 M24.531 Closed fra cture of distal end of right radius 9230021240 9742894 S52.501P Stiffness of joint of right hand 9325567344 09622 M25.641 [id number] Mayela Bowen [facility] [address] [place] [address] 07/17/2022 13:01:17 07/17/2022 14:45:46 Contracture of joint of right wrist 2231890495 17730 M24.531 Stiffness of joint of right hand 3038278954 51763 M25.641 Closed fra cture of distal end of right radius 5367568115 0372500 S52.501P Adhesion o f tendon of hand 714818802 M67.220 [id number] PARIS GOMES MD [facility] [address] [place] [address] 09/21/2022 12:41:10 09/21/2022 13:11:00 Contracture of joint of right wrist 1934838393 41086 M24.531 Stiffness of joint of right hand 0235068419 22084 M25.641 Closed fra cture of distal end of right radius 0982213695 2200173 S52.501P [id number] PARIS GOMES MD [facility] [address] [place] [address] 11/16/2022 13:03:00 11/16/2022 13:25:54 Contracture of joint of right wrist 3805934704 66175 M24.531 Stiffness of joint of right hand 6750112559 01498 M25.641 Closed fra cture of distal end of right radius 6474740953 9085331 S52.501P Health Concerns Section Related Observation LastModified by Organization Detai ls LastModified Time None Recorded Concern Status LastModified by Organization Details LastModified Time None Recorded Advance Directives Directive None Recorded Payers Encounter Date Sequence Insurance Name Policy Number Policy Herron Covered Member ID Herron Member ID Guarantor Name 04/13/2022 1 [place] [employer] Mary D Kostek [id number] Mary Kostek 04/13/2022 2 [place] [id number] Mary D Kostek [id number] Mary Kostek 07/17/2022 1 [place] Mary D Kostek [id number] Mary Kostek 07/17/2022 2 [place] [id number] Mary D Kostek [id number] Mary Kostek 09/21/2022 1 [place] Mary D Kostek [id number] Mary Kostek 09/21/2022 2 [place] [id number] Mary D Kostek [id number] Mary Kostek 11/16/2022 1 [place] Mary D Kostek [id number] Mary Kostek 11/16/2022 2 [place] [id number] Mary D Kostek [id number] Mary Kostek Notes Date Note Type Note Provider Name and Address Organization Details Recorded Time 04/13/2022 text/html The patient returns for evaluation s/p wrist arthroscopy, release of wrist flexion contracture & hardware removal. .She has been improving since last visit with therapy and time. No new paresthesias. No interval medical problems are noted. She is again with her . PARIS GOMES MD [address] [place] [address], [phone], [facility] 04/13/2022 13:54:27 07/17/2022 text/html The patient returns for evaluation s/p wrist arthroscopy, release of wrist flexion contracture & hardware removal. .She has been plateaued since last visit Following surgery she attended therapy and used a dynasplint. No new paresthesias. No interval medical problems are noted. She is again with her . PARIS GOMES MD [address] [place] [address], [phone], [facility] 07/17/2022 22:36:48 09/21/2022 text/html Patient is s/p R wrist extensor tenolysis, R RF MP joint contracture release, R SF MP joint contracture release, DOS 09/15/22. She has been doing very well at home. Denies any pain. Has been in a splint. PARIS GOMES MD [address] [place] [address], [phone], [facility] 09/21/2022 13:09:47 11/16/2022 text/html [...] flexion posture to wrist. PARIS GOMES MD [address] [place] [address], [phone], [facility] 11/16/2022 13:30:51 OBGyn Episode No OBEpisode recorded.
--- NOTE | 2024-09-01 13:30 | A.OFFVIS_ITS ---
Vital Signs 09/01/24 13:33 Height 5 ft 7 in Weight 140 lb BMI 21.9 Handedness Ambidextrous Intake Visit Reasons: FC-Closed right humeral fracture Intake Note: Mary is a 79 year old ambidextrous female who presents today as a new patient for fracture care visit for her right humeral fracture s/p trip and fall DOI: 08/28/24. Patient reports she was ironing when she heard the phone ring, rang to answer it however she tripped over the cord. She expresses landing on her face and her entire body weight crushed her right arm beneath her. Patient reports she is does not have pain at rest with a slight tightness feeling. Any movement of the right arm exacerbates her pain causing a 10 out of 10 on pain scale. She has tried to elevate her arm as advised however she says when she does this she gets strong sharp pains and severe tightness feeling. Denies numbness and tingling. Allergies No Known Allergies Allergy (Verified 09/01/24 13:34) HPI HPI FC-Closed right humeral fracture: Details: Patient is a 79-year-old female who presents for ED follow-up for right proximal humerus fracture, date of injury 08/28/2024. On that date, the patient reports that she was ironing, when the phone rang and she attempted to get the phone and tripped over the cord, then all of her weight landed on her right shoulder and arm. Patient was evaluated in the emergency department on that date, where x- rays were taken revealing a displaced spiral fracture of the right humerus shaft, with no intra-articular involvement of either of the shoulder or the elbow. Today, the patient reports that she has been wearing the sling since she was provided with it in the emergency department, as she is scared to let the arm hang down. The patient states that she was instructed in the emergency department to elevate the arm to prevent swelling, but that she experienced very significant discomfort when doing this and felt that her arm was ?loose?. Patient denies any numbness or tingling in the right upper extremity. No other acute complaints or concerns at this time [facility] Social History (Updated 09/01/24 @ 13:35 by JOHANA Toth) Alcohol intake: current Alcohol intake frequency: holidays/special occasions only Patient Tobacco Use Status: Former Tobacco user Current occupational status: retired Review of Systems Const All systems reviewed & are unremarkable except as noted in HPI and below Physical Exam Vital Signs: BMI result Body Mass Index 21.9 Extrem Other: On inspection, there is noted to be significant edema at the level of the proximal arm at the level of the fracture There is also noted to be ecchymosis at the level of the fracture, particularly on the underside of the right proximal arm There is also noted to be a visible deformity at the level of the fracture Patient reports tenderness to palpation about the fracture site Patient was unable to make a closed fist with the right hand, but states that this is her baseline as she has been unable to make a closed fist with the right hand since in old wrist fracture injury Patient reports normal sensation to the tips of all digits of the right hand No evidence of the radial nerve palsy Capillary refill brisk Office Procedures AMB Fracture Care Details: Right humeral shaft fracture Fracture Billing Code: Fracture Billing Code Results Reviewed Results Reviewed: X-rays obtained in the office today and independently reviewed by me, Christopher Arugeta PA-C, demonstrate displaced spiral fracture of the right humeral shaft with improved clinical alignment from x-rays taken in the emergency department. Assessment & Plan Assessment & Plan (1) Fracture of humeral shaft, right, closed: Code(s): S42.301A - Unspecified fracture of shaft of humerus, right arm, initial encounter for closed fracture Category: Medical Plan 1. Displaced spiral fracture of right humeral shaft Date of injury 08/28/2024 Patient was discussed with Dr. Posada, who was not available to see the patient with me in clinic today, and a collaborative treatment plan was formed: Patient is educated about this injury Patient is educated about the typical treatment course At this time, patient was fit for a thermal molded humerus brace to be worn at all times except for bathing Patient is also advised that she should continue wearing the sling with daytime activities, but can remove the sling while at rest and allow the arm to hang down Patient is advised that she should avoid any active range of motion of the right arm away from the body, but that she can begin with gentle range of motion of the left hand, wrist, as well as slight and gentle active range of motion with flexion and extension of the right elbow to prevent stiffness Patient was amenable to this plan Patient will follow-up in 3 weeks with repeat x-rays with me with Dr. Posada in the office for reassessment, sooner with any acute concerns Orders: Orders XR humerus RT Today S42.301A - Unspecified fracture of shaft of humerus, right arm, initial encounter for closed fracture Coding Level of Care Code New Pt Level 3 (39063) Diagnoses Fracture of humeral shaft, right, closed S42.301A CPT Codes Fracture Care - Fracture Billing Code: Fracture Billing Code ([id number])
[2024-09-01 13:33] VITALS: BMI 21.9
== END 2024-09-01 14:34 | disposition home or self-care (01) ==
DX: S42.301A Unspecified fracture of shaft of humerus, right arm, initial encounter for closed fracture (principal)
CPT/HCPCS: 99203

== ENCOUNTER 2024-09-03 20:52 | Emergency (ER) | payer MEDICARE, SELFPAY ==
--- OUTSIDE RECORDS SUMMARY | 2024-09-03 20:56 | XMS_ITS | Data Portability ---
Author Organization [facility] Office Address [address], [address] [place] [address] Care Team Providers Care Timber Management Professor Name Role Phone KYA PATEL Primary Care [...] x per week 6-8 weeks 2022 023 Not available 12:38:05 Procedures None recorded. Surgeries orthopaedic surgery (SURG) 2021 022 [facility], [address] [place], [address], 2 08:44:07 Imaging None recorded. Medication Orders None recorded. Patient TargetsNo targets recorded. Patient Instructions Encounter Date Encounter Id Patient Instructions Last Modified By Organization Details Last Modified Time 04/13/2022 [id number] The findings, diagnosis, and options are discussed [...] or questions. Not available 04/13/2022 13:54:25 07/17/2022 [id number] The findings, diagnosis, and options are discussed [...] or questions. Not available 07/17/2022 22:36:43 09/21/2022 [id number] Patient doing we ll s/p R wrist [...] plan. SHEILA Not available 09/21/2022 13:09:44 11/16/2022 [id number] Patient doing we ll s/p R wrist [...] views minim um Fin al Report EXAM#: [id number] PROCED URE: DXR 0068 XR HAND [...] JACKIE Vasquez On: Jul 17 2022 2:33P [email or web address] [facility] [address], [place], [address], 07/17/2022 15:40:11 07/17/20 22 07/17/2022 XR, hand, 3 or more view No observ ation record ed. Not Available 2021 15:42:43 Result Notes None recorded. Procedures Surgical History Date Name Laterality Status Provider Name and Address Organization Details Recorded Time 2 Orthopaedic Surgery completed Pat Shields [facility] 09/21/2022 12:47:37 2 Orthopaedic Surgery completed Cha Adhikari [facility] 01/16/2022 13:54:53 2 Cortisone Injection(s) completed PARIS GOMES MD [address] [place] [address], [phone], [facility] 09/22/2021 21:06:36 1 Orthopaedic Surgery completed Cha Blakenal [facility] 07/28/2021 13:07:14 Orthopaedic Surgery completed [facility] Onofre [facility] 07/28/2021 13:09:37 Imaging Results Imaging Date Name Status LastModified by Organiz ation Details LastModified Time 07/17/2022 xr hand right 3 views minimum completed [email or web address] [facility] [address] [facility], [place], [address], 07/17/2022 15:40:11 07/17/2022 XR, hand, 3 or more view completed Information not available 07/17/2022 15:42:43 Procedure Notes [...] Updated DateTime 02/16/2022 170.18 cm 22.7 kg/m2 96814.89 g Gabriel Montana [facility] 02/16/2022 13:23:34 Date Recorded Body height Body mass index (BMI) Body weight Provider Name and Address Organization Details Last Updated DateTime 04/13/2022 170.18 cm 22.7 kg/m2 61633.89 g Joya Nunn [facility] 04/13/2022 13:08:56 Date Recorded Body height Provider Name an d Address Organization Details Last Updated DateTime 07/17/2022 170.18 cm Cristian Schneider [facility] 07/17/2022 13:10:50 Date Recorded Body height Provider Name an d Address Organization Details Last Updated DateTime 09/21/2022 170.18 cm Pat Shields [facility] 09/21/2022 12:47:02 Date Recorded Body height Provider Name an d Address Organization Details Last Updated DateTime 11/16/2022 170.18 cm Courtney Donovan [facility] 11/16/2022 13:04:25 Social History Question Answer Notes LastModified by Organizat ion Details LastModified Time Tobacco Smoking Status Former Smoker Cha Adhikari [facility] 07/28/2021 13:07:11 What Is Your Level Of Alcohol Consumption? Moderate Information not available 07/28/2021 What Is Your Level Of Caffeine Consumption? Moderate Information not available 07/28/2021 Do You Or Have You Ever Used E-cigarettes Or Vape? 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 Obstetrics History GPAL:G 0 P 0 0 0 0 Immunizations Vaccine Type Date Status Note Provider Nam e and Address Organization Details Recorded Time COVID-19, mRNA, LNP-S, PF, 100 mcg/0.5mL dose or 50 mcg/0.25mL dose 1 [facility]28[facility] 13:08:08 COVID-19, mRNA, LNP-S, PF, 100 mcg/0.5mL dose or 50 mcg/0.25mL dose 1 [facility] 07/28/2021 13:08:15 COVID-19, mRNA, LNP-S, PF, 100 mcg/0.5mL dose or 50 mcg/0.25mL dose 1 [facility] 09/22/2021 11:40:58 Influenza, split virus, quadrivalent, preservative 1 completed [facility] 09/22/2021 11:41:12 Past Encounters Encounter ID Performer Location Encounter Start Date Encounter Closed Date Diagnosis/Indication Diagnosis SNOMED-CT Code Diagnosis ICD10 Code [id number] PARIS GOMES MD [facility] [address] [place], [place] [address] [place] [id number] 07/28/2021 12:27:50 07/28/2021 13:49:27 Closed fracture of distal end of right radius 8751556599 6877579 S52.501P Stiffness of joint of right hand 2048929836 09451 M25.641 Contractur e of joint of right wrist 0377915690 00976 M24.531 [id number] PARIS GOMES MD [facility] [address] [place], [place] [address] [id number] 09/22/2021 11:13:15 09/22/2021 12:12:26 Contracture of joint of right wrist 5740322275 79537 M24.531 Closed fra cture of distal end of right radius 0204275619 8893303 S52.501P Stiffness of joint of right hand 4172484524 62108 M25.641 [id number] PARIS GOMES MD [facility] [address] [place], [place] [address] [place] [address] 11/03/2021 10:49:19 11/03/2021 13:54:42 Contracture of joint of right wrist 5330336055 58003 M24.531 Closed fra cture of distal end of right radius 6280788901 7595664 S52.501P Stiffness of joint of right hand 2028636429 59206 M25.641 [id number] Mayela Bowen [address] [address] 12/20/2021 09:31:21 12/20/2021 09:48:46 Contracture of joint of right wrist 2949971147 11291 M24.531 Closed fra cture of distal end of right radius 3571530452 9287325 S52.501P Stiffness of joint of right hand 5708798455 42616 M25.641 [id number] PARIS GOMES MD [facility] [address] [facility] [place] [address] 01/16/2022 13:11:58 01/16/2022 14:21:09 Contracture of joint of right wrist 0454707175 91847 M24.531 [id number] PARIS GOMES MD [facility] [address] [employer] [place] [address] 04/13/2022 13:04:23 04/13/2022 13:35:34 Contracture of joint of right wrist 8385771056 97911 M24.531 Closed fra cture of distal end of right radius 0836680221 4336421 S52.501P Stiffness of joint of right hand 5558044769 53491 M25.641 [id number] Mayela Bowen [facility] [address] [employer] [place] [address] 07/17/2022 13:01:17 07/17/2022 14:45:46 Contracture of joint of right wrist 4616931135 37246 M24.531 Stiffness of joint of right hand 1047785041 67881 M25.641 Closed fra cture of distal end of right radius 9298459088 9787952 S52.501P Adhesion o f tendon of hand 288517819 M67.693 [id number] PARIS GOMES MD [facility] [address] [address] 09/21/2022 12:41:10 09/21/2022 13:11:00 Contracture of joint of right wrist 1596358305 49382 M24.531 Stiffness of joint of right hand 2436259447 83428 M25.641 Closed fra cture of distal end of right radius 3188404739 9066678 S52.501P [id number] PARIS GOMES MD [facility] [address] [place] [address] 11/16/2022 13:03:00 11/16/2022 13:25:54 Contracture of joint of right wrist 2657625967 41575 M24.531 Stiffness of joint of right hand 5901083985 33949 M25.641 Closed fra cture of distal end of right radius 7312465945 6988763 S52.501P Health Concerns Section Related Observation LastModified by Organization Detai ls LastModified Time None Recorded Concern Status LastModified by Organization Details LastModified Time None Recorded Advance Directives Directive None Recorded Payers Encounter Date Sequence Insurance Name Policy Number Policy Herron Covered Member ID Herron Member ID Guarantor Name 04/13/2022 1 [place] [employer] Mary D Kostek [id number] Mary Kostek 04/13/2022 2 [place] [id number] Mary D Kostek [id number] Mary Kostek 07/17/2022 1 [place] Mary D Kostek [id number] Mary Kostek 07/17/2022 2 [place] [id number] Mary D Kostek [id number] Mary Kostek 09/21/2022 1 [place] Mary D Kostek [id number] Mary Kostek 09/21/2022 2 [place] [id number] Mary D Kostek [id number] Mary Kostek 11/16/2022 1 [place] Mary D Kostek [id number] Mary Kostek 11/16/2022 2 [place] [id number] Mary D Kostek [id number] Mary Kostek Notes Date Note Type Note Provider Name and Address Organization Details Recorded Time 04/13/2022 text/html The patient returns for evaluation s/p wrist arthroscopy, release of wrist flexion contracture & hardware removal. .She has been improving since last visit with therapy and time. No new paresthesias. No interval medical problems are noted. She is again with her . PARIS GOMES MD [address] [place] [address], [phone], [facility] 04/13/2022 13:54:27 07/17/2022 text/html The patient returns for evaluation s/p wrist arthroscopy, release of wrist flexion contracture & hardware removal. .She has been plateaued since last visit Following surgery she attended therapy and used a dynasplint. No new paresthesias. No interval medical problems are noted. She is again with her . PARIS GOMES MD [address] [place] [address], [phone], [facility] 07/17/2022 22:36:48 09/21/2022 text/html Patient is s/p R wrist extensor tenolysis, R RF MP joint contracture release, R SF MP joint contracture release, DOS 09/15/22. She has been doing very well at home. Denies any pain. Has been in a splint. PARIS GOMES MD [address] [place] [address], [phone], [facility] 09/21/2022 13:09:47 11/16/2022 text/html [...] flexion posture to wrist. PARIS GOMES MD [address] [place] [address], [phone], [facility] 11/16/2022 13:30:51 OBGyn Episode No OBEpisode recorded.
--- OUTSIDE RECORDS SUMMARY | 2024-09-03 20:56 | XMS_ITS | Patient Health Record ---
Author Organization [facility] [place] Address [address] [place] [address] Care Team Providers Care Rn Medicare Name Role Phone Elia Wilkins MD, [facility] Provi ricardo Unavailable Esvin Quang Unavailable [phone] Allergies No Known Allergies Reason For Referral [...] W/U Status Risk Notes Problem Tinea unguium (537484109) Tinea unguium (B35.1) Active confirmed Topical treatment since Plan Of Treatment Pending Test Test Name Order Date [id number] NAIL, 6 OR MORE 12/14/2020 Insurance Providers Payer Name Payer Address Payer Phone Subscriber Number Group Number Insured Name Patient Relationship to Insured Coverage Start Date Coverage End Date Medicare [facility] [employer] [address] [place] [address] [id number] Mary Ray Self - patient is the insured [employer] Blue [employer] [address] [place] [address] [id number] [employer] Mary Self - patient is the insured Medical (General) History Medical History History ICD Code Anemia Arthritis Back,Hip,and Knee pain Broken bones Diverticulosis Hiatal hernia chronic sinusitis Thyroid disorder Measles Mumps Joint implants/screws Cataracts Osteoporosis thyroid Chicken pox Surgical History Surgery Date(Month/Year) D&C 1965 Right great toe - Osmin implant 2004
[2024-09-03 21:22] VITALS: BP 112/44; PULSE 80; RESP 16; TEMP 36.5; O2SAT 95; BMI 21.9
--- NOTE | 2024-09-03 23:53 | ED_ITS ---
HPI - Extremity Problem General Chief complaint: Extremity Problem Stated complaint: rt arm fracture and swollen/no BM in 6 days Time Seen by Provider: 09/03/24 23:27 Source: patient, family and old records reviewed Mode of arrival: ambulatory Limitations: no limitations History of Present Illness ED Provider: MARIO MORENO Narrative: 79 yo female with PMH of hypothyroidism s/p trip and fall on 08/28 with displaced spiral fracture she is in a sling but placed thermal molded humerus brace on 09/01. When she saw ortho on 09/01 they told her she could hang her arm down but she took that as keeping it dependent so the bone could heal better. She has not really been raising it and tonight the fingers got more swollen/painful/tingling. Since sitting down and propping her arm up in the waiting room she notes it is no longer tingling and feeling better - her wrist though is hanging down from the sling. She notes she wished she had written instructions from ortho so she could better understand them. MD Complaint: extremity swelling Onset (ago): day(s) (1) Pain Consistency: other (improving) Location: right and upper extremity Quality: aching Radiation: none Relieving factors: rest Exacerbating factors: palpation Associated symptoms: denies other symptoms Context: other (arm hanging down now mostly) Related Data Home Medications ?Medication ?Instructions ?Recorded ?Confirmed levothyroxine 125 mcg tablet 125 mcg PO DAILY 09/01/24 Previous Rx's ?Medication ?Instructions ?Recorded morphine 15 mg immediate release 15 mg PO Q8H PRN severe pain 08/28/24 tablet (scale score 7-10) #10 tabs ondansetron 4 mg disintegrating 4 mg PO Q8H PRN nausea and 08/28/24 tablet vomiting #10 tabs Allergies Allergy/AdvReac Type Severity Reaction Status Date / Time No Known Allergies Allergy Verified 09/03/24 21:26 Review of Systems Review of Systems: Constitutional : No Fever, No Chills ENT/Mouth : No Ear Pain, No Hoarseness, No sore throat Eyes: No Eye Pain, No Swelling, No Redness, No Foreign Body Cardiovascular : No Chest Pain, No SOB Respiratory : No Cough, No Dyspnea Gastrointestinal : No Nausea, No Vomiting, No Diarrhea, No abdominal Pain Genitourinary : No Dysuria, No Hematuria Musculoskeletal : positive joint pain, No Myalgias, pos Joint Swelling Skin : No Skin lacerations, No rash Neuro : No Weakness, No Numbness All other systems reviewed and are negative [facility] Past Medical History Attestation statement: The following information was validated with the patient. Source: old records reviewed Medical History Hypothyroidism Fracture of humeral shaft, right, closed Social History Social History Alcohol intake: current Alcohol intake frequency: holidays/special occasions only Alcohol type: wine Patient Tobacco Use Status: Former Tobacco user Smoked in Last 30 Days: No Use of substances other than those prescribed or required for medical reasons: No Advance Directives: No Advance Directives Information Provided: Yes Current occupational status: retired Physical Exam Vital Signs: Vital Signs: Last Vital Signs Temp 97.7 F 09/03/24 21:22 Pulse 80 09/03/24 21:22 Resp 16 09/03/24 21:22 BP 112/44 L 09/03/24 21:22 Pulse Ox 95 09/03/24 21:22 O2 Del Method Room Air 09/03/24 21:22 BMI result Body Mass Index 21.9 Appearance: Alert. Oriented X3. No acute distress. Eyes: Pupils equal, round and reactive to light. ENT: Pharynx normal. Neck: Normal inspection. Neck supple. CVS: Normal heart rate and rhythm. Pulses normal. Respiratory: No respiratory distress. Breath sounds normal. Abdomen: Soft and non-tender. Skin: Skin warm and dry. Normal skin color. Normal skin turgor. Extremities: No lower extremity edema. R arm pitting 1+ edema warm to touch, normal color, BCR in digits, 2+ radial pulse swelling is elbow down, compartments are soft and compressible, limit ability to make a fist due to swelling, sling - at wrist the hand is hanging down tightly on the sling Neuro: Oriented X 3. No motor deficit. No sensory deficit. Medical Decision Making Medical Decision Making MDM Narrative: 79 yo female with PMH of hypothyroidism s/p trip and fall on 08/28 with displaced spiral fracture here with c/o R arm edema after she has been hanging it down more. She has normal exam other than edema normal sensation, BCR, warm hand no discoloration suspect edema from hanging arm down vs DVT - US offered they want to come back in AM Differential Diagnosis Differential Diagnoses: The differential diagnosis associated with the presentation includes dependent edema, NV intact doubt compartment syndrome referred to daytime US they do not want to wait in the ED - US ordered as outpatient 8am for DVT Independent Interpretation I performed an independent interpretation of an: Ultrasound (in AM they do not want to wait since swelling improving and symptoms gone) Independent Historian Clinical information obtained from an independent historian. History obtained from or confirmed by: Spouse External Record Review External record reviewed: Inpatient record and Office record Procedures Orthopedic Splinting/Casting Injury #1: Side: right Upper Extremity Injury Location: shoulder Upper Extremity Immobilizer: sling/shoulder immobilizer Discharge Plan Discharge Clinical Impression: Arm edema Patient Disposition: Home, Self-Care Instructions: Edema (ED) Additional Instructions: in the morning show up at 8am for your outpatient ultrasound - main entrance and the order will be in place return for severe pain, cold blue hand, return of numbness sleep with hand on pillow and elevated tonight orthopedics instructions: Patient is also advised that she should continue wearing the sling with daytime activities, but can remove the sling while at rest and allow the arm to hang down Patient is advised that she should avoid any active range of motion of the right arm away from the body, but that she can begin with gentle range of motion of the left hand, wrist, as well as slight and gentle active range of motion with flexion and extension of the right elbow to prevent stiffness call orthopedics in AM to update them on your hand as well Prescriptions: No Action ondansetron 4 mg tablet,disintegrating 4 mg PO Q8H PRN (Reason: nausea and vomiting) Qty: 10 0RF morphine 15 mg tablet 15 mg PO Q8H PRN (Reason: severe pain (scale score 7-10)) Qty: 10 0RF Rx Instructions: Partial Fill upon patient request. levothyroxine 125 mcg tablet 125 mcg PO DAILY Interventions: ED Discharge Assessment Last Done: 09/04/24 00:09 Print Language: Sammarinese
--- NOTE | 2024-09-04 | PC.NURSE ---
pt departed ED prior to reieving paperwork. Provider spoke with pt. plan to return around 0830 this morning for duplex of right arm/hand.
[2024-09-04 00:09] VITALS: BP 0/0; PULSE 0; RESP 0; TEMP -17.7; TEMP 0
== END 2024-09-04 00:12 | disposition home or self-care (01) ==
PROVIDERS: Emergency Provider Emergency Medicine; PCP Family Medicine
DX: S42.301A Unspecified fracture of shaft of humerus, right arm, initial encounter for closed fracture (principal); R60.0 Localized edema; M79.631 Pain in right forearm; W01.0XXA Fall on same level from slipping, tripping and stumbling without subsequent striking against object, initial encounter; Y93.89 Activity, other specified; Y92.89 Other specified places as the place of occurrence of the external cause; Y99.8 Other external cause status
CPT/HCPCS: 29105; 99283; 99284

== ENCOUNTER 2024-09-04 04:38 | Emergency (ER) | payer MEDICARE, SELFPAY ==
[2024-09-04 04:44] VITALS: BP 145/61; BP 168/82; PULSE 85; PULSE 90; RESP 20; TEMP 36.5; O2SAT 96; O2SAT 99; BMI 21.9
--- NOTE | 2024-09-04 05:18 | ED_ITS ---
HPI - Abdominal Pain General Chief Complaint: Abdominal Pain Stated Complaint: LQ ab pain & cramping, constipation x7 Time Seen by Provider: 09/04/24 05:13 Source: patient Mode of arrival: ambulatory Limitations: no limitations History of Present Illness ED Provider: HPI narrative: Patient is still with right humerus fracture been constipated for last 7 days taking pain medication without any stool softeners was seen here earlier but forgot to tell the doctor about her constipation no nausea no vomiting feels should feel bloated Related Data Home Medications ?Medication ?Instructions ?Recorded ?Confirmed levothyroxine 125 mcg tablet 125 mcg PO DAILY 09/01/24 Previous Rx's ?Medication ?Instructions ?Recorded morphine 15 mg immediate release 15 mg PO Q8H PRN severe pain 08/28/24 tablet (scale score 7-10) #10 tabs ondansetron 4 mg disintegrating 4 mg PO Q8H PRN nausea and 08/28/24 tablet vomiting #10 tabs polyethylene glycol 3350 17 17 g PO DAILY #510 grams 09/04/24 gram/dose oral powder (Miralax) Allergies Allergy/AdvReac Type Severity Reaction Status Date / Time No Known Allergies Allergy Verified 09/04/24 04:56 Review of Systems Review of Systems Yes all other systems are reviewed and are negative PMFSH Past Medical History Medical History Hypothyroidism Fracture of humeral shaft, right, closed Social History Social History Alcohol intake: current Alcohol intake frequency: holidays/special occasions only Alcohol type: wine Patient Tobacco Use Status: Former Tobacco user Smoked in Last 30 Days: No Use of substances other than those prescribed or required for medical reasons: No Advance Directives: No Advance Directives Information Provided: Yes Do you have a plan to hurt others: No Plan Current occupational status: retired Physical Exam ED Vital Signs: Vital Signs - 24 hr 09/04/24 04:44 Temperature 97.7 F Pulse Rate 85 Respiratory Rate 20 Blood Pressure 145/61 H Pulse Oximetry 99 Oxygen Delivery Method Room Air BMI result Body Mass Index 21.9 Appearance: Alert. Oriented X3. No acute distress. Eyes: PERRLA, No Nystagmus ENT: Pharynx normal. Oral Mucosa moist Neck: Normal inspection. Neck supple. CVS: Normal heart rate and rhythm. Pulses normal. Respiratory: No respiratory distress. Equal air entry bilateral, no wheezing/rales/rhonchi Abdomen: Soft and distended bowel sounds are present Bowel sounds are present, no mass palpable, no CVA tenderness rectal: Stool in the rectum manual disimpaction done Skin: Skin warm and dry. Normal skin color. Normal skin turgor. Extremities: Right arm in sling with swelling neurovascular intact Neuro: Oriented X 3. No motor deficit. No sensory deficit.No cerebellar signs , cranial nerves II-XII intact Medical Decision Making Medical Decision Making [facility] Narrative: Patient with fecal impaction manual disimpaction done patient has had a small bowel movement will give soapsuds enema and will give milk of magnesia and Dulcolax Patient has had a good bowel movement after enema will prescribe MiraLax follow up as outpatient Medications Administered Discontinued Medications Generic Name Dose Route Start Last Admin Trade Name Freq PRN Reason Stop Dose Admin Bisacodyl 10 mg 09/04/24 05:51 09/04/24 06:02 Bisacodyl 5 Mg Tablet.Dr PO 09/04/24 05:52 10 mg ONCE ONE Administration Magnesium Hydroxide 30 ml 09/04/24 05:51 09/04/24 06:02 Milk Of Magnesia 30 Ml Oral.Susp PO 09/04/24 05:52 30 ml ONCE ONE Administration Discharge Plan Discharge Clinical Impression: Constipation Patient Disposition: Home, Self-Care Instructions: Constipation (DC) Additional Instructions: Take stool softener as advised Follow with orthopedic for right humerus fracture Prescriptions: New polyethylene glycol 3350 [Miralax] 17 gram/dose powder 17 g PO DAILY Qty: 510 0RF No Action ondansetron 4 mg tablet,disintegrating 4 mg PO Q8H PRN (Reason: nausea and vomiting) Qty: 10 0RF morphine 15 mg tablet 15 mg PO Q8H PRN (Reason: severe pain (scale score 7-10)) Qty: 10 0RF Rx Instructions: Partial Fill upon patient request. levothyroxine 125 mcg tablet 125 mcg PO DAILY Print Language: Romansh
--- OUTSIDE RECORDS SUMMARY | 2024-09-04 05:20 | XMS_ITS | Patient Health Record ---
Author Organization [facility] daniel Jefferson Address [address] [place] [address] Care Team Providers Care Enrobing Machine Corder Name Role Phone Elia Wilkins MD, [facility] Provi ricardo Unavailable Esvin Quang Unavailable [phone] Allergies No Known Allergies Reason For Referral No Information Medications Medication SIG (Take, Route, Frequency, Duration) Notes Start Date End Date Status Magnesium Not-Taking Probiotic Not-Taking Turmeric Not-Taking Glucosamine Not-Taki ng Vitamin C Not-Taking Multivitamin Not-Haiel ing Calcium Not-Taking Levothyroxine Sodium 100 MCG [...] W/U Status Risk Notes Problem Tinea unguium (222430113) Tinea unguium (B35.1) Active confirmed Topical treatment since Plan Of Treatment Pending Test Test Name Order Date [id number] NAIL, 6 OR MORE 12/14/2020 Insurance Providers Payer Name Payer Address Payer Phone Subscriber Number Group Number Insured Name Patient Relationship to Insured Coverage Start Date Coverage End Date Medicare National [facility] [employer] [address] [place] [address] [id number] Mary Ray Self - patient is the insured [employer] [address] [place] [address] [phone] [id number] [employer] Mary Self - patient is the insured Medical (General) History Medical History History ICD Code Anemia Arthritis Back,Hip,and Knee pain Broken bones Diverticulosis Hiatal hernia chronic sinusitis Thyroid disorder Measles Mumps Joint implants/screws Cataracts Osteoporosis thyroid Chicken pox Surgical History Surgery Date(Month/Year) D&C 1965 Right great toe - Osmin implant 2004
[2024-09-04] MEDS: bisacodyL 5 MG TABLET.DR 10 MG PO (06:02)
[2024-09-04] MEDS: Milk of Magnesia 30 ML ORAL.SUSP PO (06:02)
--- NOTE | 2024-09-04 06:38 | PC.NURSE ---
manual disempaction preformed by MD. Small amount of stool expelled. Enema given and medicated to MAR, large amount of stool expelled
== END 2024-09-04 07:27 | disposition home or self-care (01) ==
PROVIDERS: Emergency Provider Internal Medicine; PCP Family Medicine
DX: K59.00 Constipation, unspecified (principal)
CPT/HCPCS: 99284

== ENCOUNTER 2024-09-04 08:25 | Outpatient (REF) | payer MEDICARE, SELFPAY | END 2024-09-04 08:26 | disposition home or self-care (01) | LOC: HO.XRAY 08:25 | PROVIDERS: Visit Provider Emergency Medicine | DX: Z13.89 Encounter for screening for other disorder (principal) ==

== ENCOUNTER 2024-09-09 09:21 | Outpatient (AMB) | payer MEDICARE, SELFPAY ==
--- NOTE | 2024-09-09 09:23 | A.OFFVIS_ITS ---
Vital Signs 09/09/24 09:38 Height 5 ft 7 in Weight 140 lb BMI 21.9 Handedness Ambidextrous Intake Visit Reasons: OV: FX of right humeral shaft DOI 08/28/24 Intake Note: Mary is a 79 year old ambidextrous female who presents today for a follow up visit for her fracture of right humeral shaft, s/p trip and fall DOI: 08/28/24. At last visit patient was fit for a thermal molded humerus brace to be worn at all times except for bathing. Patient reports she feels her elbow is starting to freeze up and it is very frustrating. She expresses still having swelling. She says she has been sitting and letting her arm hang down at home but uses the sling in person. Allergies No Known Allergies Allergy (Verified 09/09/24 09:27) HPI HPI OV: FX of right humeral shaft DOI 08/28/24: Details: Patient was a 79-year-old female who presents for follow-up evaluation and splint refitting of fracture of right humeral shaft, date of injury 08/28/2024. The patient reports that since previous evaluation, she feels that the splint around her proximal right humerus has loosened due to swelling going down, and her, her , and her daughter were unable to tight in the brace adequately. Patient also states that she has been allowing the arm to hang down sometimes, but has mostly been in the sling. The patient expresses displeasure with the emergency department in the care she received stating that she feels that this brace, should have been placed in the ED, and also states that she wished she had written instructions as to how the brace worked. Denies any numbness or tingling in the right hand. No other acute complaints or concerns at this time. [facility] Medical History Hypothyroidism Fracture of humeral shaft, right, closed Social History Alcohol intake: current Alcohol intake frequency: holidays/special occasions only Alcohol type: wine Patient Tobacco Use Status: Former Tobacco user Current occupational status: retired Review of Systems Const All systems reviewed & are unremarkable except as noted in HPI and below Physical Exam Vital Signs: BMI result Body Mass Index 21.9 Extrem Other: On inspection, there is noted to be significant edema at the level of the proximal arm at the level of the fracture There is also noted to be ecchymosis at the level of the fracture, particularly on the underside of the right proximal arm There is also noted to be a visible deformity at the level of the fracture Patient reports tenderness to palpation about the fracture site Patient was unable to make a closed fist with the right hand, but states that this is her baseline as she has been unable to make a closed fist with the right hand since in old wrist fracture injury Patient reports normal sensation to the tips of all digits of the right hand No evidence of the radial nerve palsy Capillary refill brisk Assessment & Plan Assessment & Plan (1) Fracture of humeral shaft, right, closed: Code(s): S42.301A - Unspecified fracture of shaft of humerus, right arm, initial encounter for closed fracture Category: Medical Plan 1. Displaced spiral fracture of right humeral shaft Date of injury 08/28/2024 Patient was discussed with Dr. Posada, who was not available to see the patient with me in clinic today, and a collaborative treatment plan was formed: Patient is educated about this injury Patient is educated about the typical treatment course At this time, patient was re-fit for a thermal molded humerus brace to be worn at all times except for bathing Patient is also advised that she should continue wearing the sling with daytime activities, but can remove the sling while at rest and allow the arm to hang down Patient is advised that she should avoid any active range of motion of the right arm away from the body, but that she can begin with gentle range of motion of the left hand, wrist, as well as slight and gentle active range of motion with flexion and extension of the right elbow to prevent stiffness Patient was amenable to this plan Patient will follow-up in 2 weeks with repeat x-rays with me with Dr. Posada in the office for reassessment, sooner with any acute concerns Coding Level of Care Code Global (32143) Diagnoses Fracture of humeral shaft, right, closed S42.301A
--- OUTSIDE RECORDS SUMMARY | 2024-09-09 09:24 | XMS_ITS | Data Portability ---
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 This was an opportunity to assess your overall well being including your ability to care for yourself, your mobility, memory, mental health, as well as your safety. With advancing age, it is important to assign someone in your life as your Health Care Proxy (HCP). This person should know what is important to you and what your wishes are for medical procedures if you cannot communicate your wishes yourself (severe illness, unconsciousness ). We discussed having a completed Health Care Proxy form today. In addition, today we started a conversation about your End of Life wishes. These conversations will continue over the years. Please consider reading the book, Being Mortal by Tucker Celeste to help frame future conversations. We discussed the purpose of a MOLST form (Medical Orders for Life Sustaining Treatment) and completed this form if appropriate per your wishes. Vision and Hearing are senses that are critically important as we age. When impaired, they can contribute to memory loss, falls, and make it harder to drive, talk to family and friends, and engage in the world. Please get your vision checked yearly and your hearing checked when you start to notice hearing loss. We discussed approaches to lowering your risk of heart disease and stroke . Your blood pressure . Your cholesterol . We discussed cancer screening you may need as well as vaccines to prevent infections. Colon Cancer : Your risk of colon cancer is . Due for colorectal screening:. If you are not planning to have a colonoscopy please screen with stool cards yearly. Breast Cancer : Breast Cancer Screening (mammography). Next mammogram due: . Cervical Cancer Screening (pap test). Next pap due: . Influenza Vaccine : Flu shot yearly. Tetanus Vaccine : Every 10 years. Due: . The following vaccines are available from your pharmacy: Pneumonia Vaccine : PCV20: once after age 65. Shingles Vaccine : 2 shots after age 50. Covid Vaccine : Make sure you have received the most up to date covid vaccine. Your personal health goal for the year is: [email or web address] Not available 02/02/2023 07:53:37 02/07/2024 02/07/2024 We completed your Medicare Wellness exam today. This was an opportunity to assess your overall well being including your ability to care for yourself, your mobility, memory, mental health, as well as your safety. With advancing age, it is important to assign someone in your life as your Health Care Proxy (HCP). This person should know what is important to you and what your wishes are for medical procedures if you cannot communicate your wishes yourself (severe illness, unconsciousness ). We discussed having a completed Health Care Proxy form today. In addition, today we started a conversation about your End of Life wishes. These conversations will continue over the years. Please consider reading the book, Being Mortal by Tucker Celeste to help frame future conversations. We discussed the purpose of a MOLST form (Medical Orders for Life Sustaining Treatment) and completed this form if appropriate per your wishes. Vision and Hearing are senses that are critically important as we age. When impaired, they can contribute to memory loss, falls, and make it harder to drive, talk to family and friends, and engage in the world. Please get your vision checked yearly and your hearing checked when you start to notice hearing loss. We discussed approaches to lowering your risk of heart disease and stroke . Your blood pressure is at goal. Your cholesterol is at goal. We discussed cancer screening you may need as well as vaccines to prevent infections. Colon Cancer : Your risk of colon cancer is average. Due for colorectal screening:not needed due to age. If you are not planning to have a colonoscopy please screen with stool cards yearly. Breast Cancer : Breast Cancer Screening (mammography). Next mammogram due: not needed. Cervical Cancer Screening (pap test). Next pap due: not needed. Prostate Cancer : PSA testing for ages 55-69 risks and benefits discussed . Influenza Vaccine : Flu shot yearly. Tetanus Vaccine : Every 10 years. Due: 2029. The following vaccines are available from your pharmacy: Pneumonia Vaccine : PCV20: once after age 65. Shingles Vaccine : 2 shots after age 50. Covid Vaccine : Make sure you have received the most up to date covid vaccine. Your personal health goal for the year is: [email or web address] Not available 02/07/2024 10:40:23 Plan of Treatment Reminders Order Date Submit Date Provider Last Modified By Organization Details Last Modified Time Details Appointments LAB Follow -Up 2024 08:00A M [facility] Lab Not available Not available Not available Jerica Visit 30 2024 08:30A M Angie Power MD Not available Not available Not available Lab TSH, serum or plasma 2023 024 [facility], [address], [place], [address], 04/01/2024 11:31:02 Referral sleep medici ne referr al - would like a sleep apnea eval 2022 023 [facility], [address] [facility], [facility] [address], [place], [address], 12/26/2023 16:18:57 physic al therap ist referr al - cervic al radicu lopath y sympto ms L UE achy pain x 4 months , monika bauer CS xray [id number] [place], [place] [address]ab, [address], [place], [address], 06/05/2024 13:46:23 physic al therap ist referr al - neck pain pls eval and tx 2023 024 [email or web address] [facility], [address], [place], [address], 06/25/2024 12:46:07 allerg ist & immuno logist referr al - pershuy tent itchy scalp x 4-5 yrs 2023 024 [facility], [address] , [place], [address], 06/25/2024 10:59:10 endocr inolog y referr al - hypoth yroidi sm with a myriad of sympto ms, pls review HPI 2023 azucena Arroyo MD, [address], [facility], [place], [address], 08/22/2024 16:36:53 Procedures None record ed. Surgeries None record ed. Imaging bone densit y 2022 023 [facility] (Imaging), [address], [place], [address], 03/13/2023 17:18:56 XR, cervic al spine - cervic al radicu lopath y sympto ms since January 2024 hx of osteop enia [id number] (Imaging), [address], [place], [address], 06/05/2024 13:46:23 Medication Orders levoth yroxin e 112 mcg tablet 2022 023 renee [facility], [address] [place], [address], 03/10/2024 17:17:24 Synthr oid 125 mcg tablet 2023 024 [facility], [address] [place], [address], 02/07/2024 10:54:13 Patient TargetsNo targets recorded. Patient Instructions Encounter Date Encounter Id Patient Instructions Last Modified By Organization Details Last Modified Time 02/02/2023 [id number] advance directives: care instructions joshua Not available 02/02/2023 09:19:02 preventing falls: care instructions joshua Not available 02/02/2023 09:19:02 hearing loss: care instructions joshua Not available 02/02/2023 09:19:02 well visit, over 65: care instructions joshua Not available 02/02/2023 09:19:02 After a discussion of treatment and medication options, which included consideration of the best practices in medicine, a medical plan was provided. The patient's opinions and concerns were included in this treatment plan and goal. * Maintain 1200 mg of calcium from food sources daily, * Take vitamin D 3525-9032 units daily to help absorption of calcium into your bones * Use sunblock consistently * Review the website: ShepHertz to get more information on the Mediterranean diet - a heart healthy eating plan * Immunizations up to date; COVID vaccines up to date. COVID booster 4 mos after the last one. Also get the PCV 20 at that pharmacy. Shingrix at the pharmacy. * The current guidelines from the [place] [employer] is moderate aerobic physical activity about 30 minutes for 5 days of the week. Walking at a moderately fast pace, as tolerated. Try to build muscle mass. This will help maintain bone strength and support your joints. * Pap smear not indicated due to age. * Mammogram guidelines discussed, no family history or personal history of abnormal mammograms, no need to repeat. * Your bone density is due this year - appt in [facility] March 02 at 11:45 am. * Colonoscopy is not indicated, due to age, and normal twice. * Health care proxy discussed and no changes. * MOLST form discussed. No changes. * Wellness Visit in 1 year * See your dentist at least twice a year. * Get your vision checked at least once every 2 years. * Discussed labs * Discussed cholesterol: 2020 excellent! BMP normal in 2020. * TSH is a bit too much, we will decrease the levothyroxine dose to 112 mcg daily - and repeat labs in 2 mos. * trial of zantac to use as needed joshua Not available 02/02/2023 22:34:46 2023 [id number] After a discussion of treatment and medication options, which included consideration of the best practices in medicine, a medical plan was provided. The patient's opinions and concerns were included in this treatment plan and goal. 1. went into [facility] and reviewed endoscopy 2019 and pathology normal. 2. referral to sleep study and pt will call for an appt 3. trial of over the counter omeprazole (prilosec) and take 30 min before breakfast or first meal of the day for 14 days , and send me a message on the portal. joshua Not available 2023 10:18:44 02/07/2024 [id number] CCM: The provider and patient discussed the Chronic Care Management program, including the services provided, and any fees associated with them. [email or web address] Not available 02/07/2024 10:04:27 Reason for Referral Sleep Medicine Referral for Snoring would like a sleep apnea eval Referring Physician: Angie Power [facility], Encounter Date: 2023 Physical Therapist Referral for Cervical radiculopathy cervical radiculopathy symptoms L UE achy pain x 4 months, pending CS xray Referring Physician: Angie Power [facility], Encounter Date: 06/05/2024 Physical Therapist Referral for Cervical radiculopathy neck pain pls eval and tx Referring Physician: Angie Power [facility], Encounter Date: 06/25/2024 Endocrinology Referral for H ypothyroidism hypothyroidism with a myriad of symptoms, pls review HPI Referring Physician: Angie Power [facility], Encounter Date: 06/25/2024 Shoe Lining Fitter & Librarian Helper Ref erral for Scalp itchy persistent itchy scalp x 4-5 yrs Referring Physician: Angie Power [facility], Encounter Date: 06/25/2024 Results Created Date Observation Date Name Description Value Unit Range Abnormal Flag Note LastModifiedBy Organization Detail LastModifiedTime 01/27/2001/26/2023 TSH TSH 0.35 uIU/m L 0.50-6 .00 low The Ameri can Colle ge of Endoc rinol ogy and Ameri can Thyro id Assoc iatio n recom mend goal TSH value s betwe en 0.4-4 .0 mIU/m L. Not Available [address], [address], 01/26/2023 11:03:20 04/04/20 23 04/04/2023 TSH TSH 0.15 uIU/m L 0.50-6 .00 low The Ameri can Colle ge of Endoc rinol ogy and Ameri can Thyro id Assoc iatio n recom mend goal TSH value s betwe en 0.4-4 .0 mIU/m L. Not Available [address], [address], 04/04/2023 14:19:24 06/27/20 23 06/27/2023 COMP. METAB OLIC PANEL glucose 56 mg/dL 70-100 low Not Available [address], [address], 06/27/2023 12:11:54 06/27/20 23 06/27/2023 COMP. METAB OLIC PANEL BUN 17 mg/dL 7-18 Not Available [address], [address], 06/27/2023 12:11:54 06/27/20 23 06/27/2023 COMP. METAB OLIC PANEL creatinine 0.8 mg/dL 0.8-1. 3 Not Available [address], [address], 06/27/2023 12:11:54 06/27/20 23 06/27/2023 COMP. METAB OLIC PANEL B/C 21.3 ratio Not Available [address], [address], 06/27/2023 12:11:54 06/27/20 23 06/27/2023 COMP. METAB OLIC PANEL GFR >=60ML /MIN mL/mi n normal >=60m L/min - Arabella l or midly reduc ed <60mL /min- Decre ased kidne y funct ion <15mL /min - Kidne y failu re [facility] calcu lates estim ated Glome rular Filtr ation Rate (eGFR ) using the Chron ic Kidne y Disea se Epide miolo gy Colla borat ion (CKD- EPI) Equat ion (Lolita r et. al 2020) as recom malick d by the Natio nal Kidne y Found ation . eGFR is based on age, serum creat inine , and sex. CKD-E PI does not calcu late eGFR by race, does not apply to child zoran (age <18 years ), and shoul d not be used in pregn ana. Not Available [address], [address], 06/27/2023 12:11:54 06/27/2006/27/2023 COMP. METAB OLIC PANEL sodium 142 mmol/ L 136-14 5 Not Available [address], [address], 06/27/2023 12:11:54 06/27/20 23 06/27/2023 COMP. METAB OLIC PANEL potassium 5.1 mmol/ L 3.5-5. 1 Not Available [address], [address], 06/27/2023 12:11:54 06/27/20 23 06/27/2023 COMP. METAB OLIC PANEL chloride 103 mmol/ L 96-107 Not Available [address], [address], 06/27/2023 12:11:54 06/27/20 23 06/27/2023 COMP. METAB OLIC PANEL anion gap 9.2 5.0-15 .0 Not Available [address], [address], 06/27/2023 12:11:54 06/27/20 23 06/27/2023 COMP. METAB OLIC PANEL CO2 30 mmol/ L 21-32 Not Available [address], [address], 06/27/2023 12:11:54 06/27/20 23 06/27/2023 COMP. METAB OLIC PANEL calcium 9.1 mg/dL 8.5-10 .3 Not Available [address], [address], 06/27/2023 12:11:54 06/27/20 23 06/27/2023 COMP. METAB OLIC PANEL total protein 7.1 g/dL 6.4-8. 2 Not Available [address], [address], 06/27/2023 12:11:54 06/27/20 23 06/27/2023 COMP. METAB OLIC PANEL albumin 3.9 g/dL 3.4-5. 0 Not Available [address], [address], 06/27/2023 12:11:54 06/27/20 23 06/27/2023 COMP. METAB OLIC PANEL globulin 3.2 g/dL Not Available [address], [address], 06/27/2023 12:11:54 06/27/20 23 06/27/2023 COMP. METAB OLIC PANEL A/G 1.2 ratio 0.8-2. 0 Not Available [address], [address], 06/27/2023 12:11:54 06/27/20 23 06/27/2023 COMP. METAB OLIC PANEL total bilirubin 0.60 mg/dL 0.00-1 .00 Not Available [address], [address], 06/27/2023 12:11:54 06/27/20 23 06/27/2023 COMP. METAB OLIC PANEL AST 18 U/L 0-37 Not Available [address], [address], 06/27/2023 12:11:54 06/27/20 23 06/27/2023 COMP. METAB OLIC PANEL ALT 18 U/L 6-63 Not Available [address], [address], 06/27/2023 12:11:54 06/27/20 23 06/27/2023 COMP. METAB OLIC PANEL alk. phos. 82 U/L 50-136 Not Available [address], [address], 06/27/2023 12:11:54 06/27/20 23 06/27/2023 TSH TSH 3.13 uIU/m L 0.50-6 .00 The Ameri can Colle ge of Endoc rinol ogy and Ameri can Thyro id Assoc iatio n recom mend goal TSH value s betwe en 0.4-4 .0 mIU/m L. Not Available [address], [address], 06/27/2023 17:02:19 06/27/20 23 07/03/2023 VITAM IN D 25-HY DROXY TOTAL vitamin D 25-hydroxy EIA 44.9 NG/mL 20.0-9 9.9 Thera py is based on measu remen t of total 25-OH D, with level s less than 20 ng/mL indic ative of Vitam in D defic iency . Level s betwe en 20ng/ mL and 30 ng/mL sugge st insuf ficie ncy. Optim al Level s are great er than 30 ng/mL . Not Available [address], [address], 07/03/2023 14:16:29 01/29/20 24 01/29/2024 COMP. METAB OLIC PANEL glucose 71 mg/dL 70-100 Not Available [address], [address], 01/29/2024 12:37:40 01/29/20 24 01/29/2024 COMP. METAB OLIC PANEL BUN 21 mg/dL 7-18 high Not Available [address], [address], 01/29/2024 12:37:40 01/29/20 24 01/29/2024 COMP. METAB OLIC PANEL creatinine 0.7 mg/dL 0.8-1. 3 low Not Available [address], [address], 01/29/2024 12:37:40 01/29/20 24 01/29/2024 COMP. METAB OLIC PANEL B/C 30.0 ratio Not Available [address], [address], 01/29/2024 12:37:40 01/29/20 24 01/29/2024 COMP. METAB OLIC PANEL GFR >=60ML /MIN mL/mi n normal >=60m L/min - Arabella l or midly reduc ed <60mL /min- Decre ased kidne y funct ion <15mL /min - Kidne y failu re [facility] al Group calcu lates estim ated Glome rular Filtr ation Rate (eGFR ) using the Chron ic Kidne y Disea se Epide miolo gy Colla borat ion (CKD- EPI) Equat ion (Lolita r et. al 2020) as recom malick d by the Natio nal Kidne y Found ation . eGFR is based on age, serum creat inine , and sex. CKD-E PI does not calcu late eGFR by race, does not apply to child zoran (age <18 years ), and shoul d not be used in pregn ana. Not Available [address], [address], 01/29/2024 12:37:40 01/29/20 24 01/29/2024 COMP. METAB OLIC PANEL sodium 140 mmol/ L 136-14 5 Not Available [address], [address], 01/29/2024 12:37:40 01/29/20 24 01/29/2024 COMP. METAB OLIC PANEL potassium 3.9 mmol/ L 3.5-5. 1 Not Available [address], [address], 01/29/2024 12:37:40 01/29/20 24 01/29/2024 COMP. METAB OLIC PANEL chloride 102 mmol/ L 96-107 Not Available [address], [address], 01/29/2024 12:37:40 01/29/20 24 01/29/2024 COMP. METAB OLIC PANEL anion gap 9.5 5.0-15 .0 Not Available [address], [address], 01/29/2024 12:37:40 01/29/20 24 01/29/2024 COMP. METAB OLIC PANEL CO2 29 mmol/ L 21-32 Not Available [address], [address], 01/29/2024 12:37:40 01/29/20 24 01/29/2024 COMP. METAB OLIC PANEL calcium 8.6 mg/dL 8.5-10 .3 Not Available [address], [address], 01/29/2024 12:37:40 01/29/20 24 01/29/2024 COMP. METAB OLIC PANEL total protein 6.9 g/dL 6.4-8. 2 Not Available [address], [address], 01/29/2024 12:37:40 01/29/20 24 01/29/2024 COMP. METAB OLIC PANEL albumin 3.6 g/dL 3.4-5. 0 Not Available [address], [address], 01/29/2024 12:37:40 01/29/20 24 01/29/2024 COMP. METAB OLIC PANEL globulin 3.3 g/dL Not Available [address], [address], 01/29/2024 12:37:40 01/29/20 24 01/29/2024 COMP. METAB OLIC PANEL A/G 1.1 ratio 0.8-2. 0 Not Available [address], [address], 01/29/2024 12:37:40 01/29/20 24 01/29/2024 COMP. METAB OLIC PANEL total bilirubin 0.50 mg/dL 0.00-1 .00 Not Available [address], [address], 01/29/2024 12:37:40 01/29/20 24 01/29/2024 COMP. METAB OLIC PANEL AST 23 U/L 0-37 Not Available [address], [address], 01/29/2024 12:37:40 01/29/20 24 01/29/2024 COMP. METAB OLIC PANEL ALT 27 U/L 6-63 Not Available [address], [address], 01/29/2024 12:37:40 01/29/20 24 01/29/2024 COMP. METAB OLIC PANEL alk. phos. 82 U/L 50-136 Not Available [address], [address], 01/29/2024 12:37:40 01/29/20 24 01/29/2024 TSH TSH 8.51 uIU/m L 0.50-6 .00 high The Ameri can Colle ge of Endoc rinol ogy and Ameri can Thyro id Assoc iatio n recom mend goal TSH value s betwe en 0.4-4 .0 mIU/m L. Not Available [address], [address], 01/29/2024 13:43:14 01/29/20 24 01/29/2024 VITAM IN D 25-HY DROXY TOTAL vitamin D 25-hydroxy EIA 41.5 NG/mL 20.0-9 9.9 Thera py is based on measu remen t of total 25-OH D, with level s less than 20 ng/mL indic ative of Vitam in D defic iency . Level s betwe en 20ng/ mL and 30 ng/mL sugge st insuf ficie ncy. Optim al Level s are great er than 30 ng/mL . Not Available [address], [address], 01/29/2024 13:43:15 04/01/20 24 04/01/2024 TSH TSH 2.57 uIU/m L 0.50-6 .00 The Ameri can Colle ge of Endoc rinol ogy and Ameri can Thyro id Assoc iatio n recom mend goal TSH value s betwe en 0.4-4 .0 mIU/m L. Not Available [address], [address], 04/01/2024 11:31:01 03/13/20 23 03/01/2023 bone densi ty study Dual-E nergy X-ray Absorp tiomet ry (DXA) scan perfor [facility] on 3. Impres maria isabel: Based on BMD, diagno sis is consis tent with low bone mass. Treatm ent Recomm endati ons: ?Opti cathy vitami n D, calciu m, and weight -beari ng and muscle -stren gtheni ng exerci se. This patien t has low bone mass with fractu re risk below the thresh old for antire sorpti ve treatm ent. Follow -up DXA: Consid er repeat ing this study in three to five years or as clinic lina lundy. Indica tion(s ): Caucas scott, postme nopaus al Clinic al Histor y: osteop orosis , height loss, fragil ity fractu res Techni el Qualit y: The techni el qualit y of the study was good. The L3-L4 region was exclud ed due to artifa ct. Result s: Lumbar Spine The BMD measur ed in the L1-L2 region is 0.881 g/cm2. T-scor e = -2.4. Femora l Neck The BMD measur ed at the left femora l neck is 0.935 g/cm2. T-scor e = -0.7. Total Hip The BMD measur ed at the total left proxim al femur is 0.883 g/cm2. T-scor e = -1.0. 1/3 Radius The BMD measur ed at the left one-th ird radius is 0.683 g/cm2. T-scor e = -2.2. Interv al Change : This examin ation is compar ed to the techni jackson simila r prior study from 9. In the interi m, there has been a signif icant decrea se of 0.070 g/cm2, or 7.3 %, at the left hip. During the same interv al there has also been a signif icant increa se of 0.057 g/cm2, or 6.9 %, at the lumbar spine, most likely due to degene rative change s. At this facili ty, the least signif icant change in BMD with 95% confid ence is 0.028 g/cm2 at the L1-L4 spine and 0.038 g/cm2 at the total hip. Fractu re Risk: The estima nikkie 10-yea r risk for a major osteop orotic fractu re is 13 % and for a hip fractu re 1.8 %. This fractu re risk estima te was calcul ated using FRAX versio n 4.0 and Caucas scott race, postme nopaus e, and fragil ity fractu res as additi onal clinic al risk factor s for fractu re. This scan was perfor med using the Reply.ioig y Primo 10 densit ometer at [facility] s [facility] , [address] [place]. Read by: Lillian Webb on, MS, REEL CART OPERATOR-BC , CCD Baron bauer Physic scott: Di lizama [facility] ([facility]) [address], [place], [address], 03/15/2023 16:09:21 08/27/2005/1205/12/2020 upper endos copy (EGD) with colon oscop y (PROC ) No observ ation record ed. [email or web address] Not Available 08/27/2023 18:06:19 08/27/20 23 01/31/2019 upper endos copy proce dure (EGD) (PROC ) No observ ation record ed. [email or web address] lo Not Available 08/27/2023 18:06:19 06/05/20 24 06/05/2024 XR, cervi el spine CLINIC AL HISTOR Y: Neck pain. TECHNI QUE: AP, latera l and odonto id views of the cervic al spine obtain ed. Bilate ral obliqu e views added. COMPAR CELINE: None. FINDIN GS: Verteb ral body height is mainta ined. There is straig htenin g of the lower cervic al spine which may be due to spasm. There is modera te narrow ing and spurri ng C4-5, C5-6, C6-7. Neural forami na are patent . There is uncina te proces s hypert rophic change C4-5 throug h C6-7. There is no fractu re. The prever tebral soft tissue s are unrema rkable . IMPRES MRAIA ISABEL: 1. Modera tely severe cervic al spondy losis. . 2. Straig htenin g of the cervic al spine may be due to spasm. Baron bauer Physic scott: Mina Olvera [facility] ([facility]) [address] , [place], [address], 06/08/2024 14:08:59 Result Notes None recorded. Problems Name Problem SNOMED Code Status Onset Date Resolution Date Notes Provider Name and Address Organization Details Recorded Time Anemia 698681459 Active Angie Power MD [address] [place], [place] [address], [address], [facility] 5 10:38:47 Common cold 35769546 Completed 08/06/2013 Angie Power MD [address] [place], [place] [address], [address], [facility] 5 10:38:47 Hypothyro idism 32951258 Active Angie Power MD [address] [place], [place] [address], [address], [facility] 5 11:03:03 Solitary nodule of lung 619582920 Active Angie Power MD [address] [place], [place] [address], [address], [facility] 5 10:38:47 Chest pain 71722555 Completed 08/06/2013 Angie Power MD [address] [place], [place] [address], [address], [facility] 5 10:38:47 Multiple nodules of lung 274683626 Active Angie Power MD [address] [place], [place] [address], [address], [facility] 5 10:38:47 Osteopeni a 082996979 Active Angie Power MD [address] [place], [place] [address], [address], [facility] 5 10:38:47 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 Angie Power MD [address] [place], [place] [address], [address], [facility] 6 04:40:13 Osteoporo sis [id number] Active 2021 Angie Power MD [address] [place], [place] [address], [address], [facility] 2 20:04:58 Rosacea 087067112 Active 2022 Angie Power MD [address] [place], [place] [address], [address], [facility] 3 22:24:21 Obstructi ve sleep apnea syndrome 20768203 Active 2023 Angie Power MD [address] [place], [place] [address], [address], [facility] 4 10:27:19 Closed fracture of right humerus [id number] Active 2023 Jacklyn Mohr RN [facility], [facility] 16:50:48 Problem Notes None recorded. Procedures Surgical History Date Name Laterality Status Provider Name and Address Organization Details Recorded Time 02/07/20 24 Medicare Wellness Visit completed Radha Larry MA [facility] 02/07/2024 08:11:21 08/23/20 23 [place] Sleepiness Scale completed Angie Power MD [address] [place] [address], [phone], [facility] 2023 10:16:31 02/03/20 23 Medicare Wellness Visit completed Radha Larry MA [facility] 02/02/2023 07:53:38 02/01/20 22 Medicare Wellness Visit completed Radha Larry [facility] 01/31/2022 08:02:59 02/01/20 22 Alcohol use screening completed Radha Larry [facility] 01/31/2022 08:02:59 02/01/20 22 Cardiovascular disease risk reduction counseling completed Radha Larry [facility] 01/31/2022 08:02:59 02/01/20 22 Medicare Risk for Falls Screen completed Radha Bergerrigo [facility] 01/31/2022 08:44:32 01/07/20 22 Other (specify) completed Petra Ornelas PA-C [address] [place] [address], [address], [facility] 04/24/2022 13:58:39 11/11/19 21 Medicare Wellness Visit completed Melody Macias [facility] 11/11/2020 09:45:15 11/11/19 21 prevention-cardiov ascular risk reduction counseling completed Melody Macias [facility] 11/11/2020 09:45:15 11/11/19 21 prevention-annual alcohol misuse screening completed Melody Macias [facility] 11/11/2020 09:45:15 11/11/19 21 Advanced Care Planning completed Melody Macias [facility] 11/11/2020 09:45:16 01/05/20 21 06585: Therapeutic Exercise completed Abigail Calderon, PT [address] [place], [address], [facility] 09/21/2020 09:35:01 08/24/20 20 64514: Therapeutic Exercise completed Abigail Calderon, PT [address] [place], [address], [facility] 08/24/2020 09:54:03 08/19/20 20 Post hospital/SNF follow-up/Transiti onal Care completed Brissa Schneider [facility] 08/19/2020 14:08:49 08/04/20 20 Physical Activity Counselling completed Abigail Calderon, PT [address] [place], [address], [facility] 08/04/2020 10:16:50 08/04/20 20 61349: PT Eval Low Complexity completed Abigail Calderon, PT [address] [place], [address], [facility] 08/04/2020 10:16:53 05/12/20 20 Colonoscopy completed Angie Power MD [address] [place], [address], [facility] 11/11/2020 20:30:20 11/10/19 20 Medicare Wellness Visit completed Camden Valerio [facility] 11/10/2019 14:06:43 11/10/19 20 prevention-cardiov ascular risk reduction counseling completed Camden Valerio [facility] 11/10/2019 14:06:43 11/10/19 20 prevention-annual alcohol misuse screening completed Camden Valerio [facility] 11/10/2019 14:06:43 12/14/19 19 POC Strep Testing completed Krystal Esquivel LPN [facility] 12/16/2018 12:21:04 09/26/19 19 Medicare Wellness Visit completed Jing Wade [facility] 09/26/2018 08:27:57 09/26/19 19 Cerumen Removal - Irrigation/Lavage completed Jing Wade [facility] 09/26/2018 09:39:33 09/26/19 19 Advanced Care Planning completed Angie Power MD [address] [place] [address], [address], [facility] 09/26/2018 09:24:45 09/24/19 18 Medicare Wellness Visit completed Jing Wade [facility] 09/24/2017 09:47:16 09/24/19 18 Advanced Care Planning completed Jing Wade [facility] 09/24/2017 09:39:01 09/30/19 16 Cerumen Removal completed Angie Power MD [address] [place] [address], [address], [facility] 09/30/2015 20:25:35 09/13/20 15 Medicare Wellness Visit completed Jing Wade [facility] 09/13/2015 09:53:00 09/03/20 14 Medicare Wellness Visit completed Jing Wade [facility] 09/03/2014 09:54:57 09/01/20 13 Medicare Wellness Visit completed Elise Hart [facility] 09/01/2013 09:56:59 08/26/20 12 Medicare Wellness Visit completed Jing Wade [facility] 08/26/2012 11:30:58 08/24/20 11 Medicare Wellness Visit completed Jing Wade [facility] 08/24/2011 10:05:34 01/21/20 10 Colonoscopy completed Angie Power MD [address] [place] [address], [address], [facility] 09/07/2013 16:13:37 Tubal Ligation completed Not Available [facility] 08/03/2011 06:06:16 Imaging Results Imaging Date Name Status LastModified by Organization Details LastModified Time 03/01/2023 bone density study completed [facility] (Imaging) [address], [place], [address], 03/15/2023 16:09:21 05/12/2020 upper endoscopy (EGD) with colonoscopy (PROC) completed Information not available 08/27/2023 18:06:19 01/31/2019 upper endoscopy procedure (EGD) (PROC) completed Information not available 08/27/2023 18:06:19 06/05/2024 XR, cervical spine completed [facility] (Imaging) [address], [place], [place], [address], 06/08/2024 14:08:59 Procedure Notes None recorded. Medical Equipment None Reported. Allergies No known drug allergies Medications Name Sig Start Date Stop Date Status Note LastModified by Organization Details LastModified Time Protonix 40 mg tablet,de layed release Take 1 tablet every day by oral route. active Not Available Not Available No t Available ketoconaz ole 2 % shampoo 08/23 completed Not Available Not Available Not Available hydrocort isone-pra moxine 2.5 %-1 % rectal cream apply topicall y on rectal area 3-4 times per day as needed active Not Available Not Available No t Available azithromy rosendo 250 mg tablet TAKE 2 TABLETS (500 MG) BY ORAL ROUTE ONCE DAILY FOR 1 DAY THEN 1 TABLET (250 MG) BY ORAL ROUTE ONCE DAILY FOR 4 DAYS 12/23 completed Not Available Not Available Not Available fluconazo le 150 mg tablet TAKE ONE TABLET ONCE 02/02 completed Not Available Not Available Not Available valacyclo vir 1 gram tablet active Not Available Not Available Not Available hydroquin one 4 % topical cream use as directed active Not Available Not Available No t Available tretinoin 0.05 % topical cream 09/26 completed Not Available Not Available Not Available Reglan 10 mg tablet Take 1 tablet 3 times a day by oral route. active Not Available Not Available No t Available triamcino lone acetonide 0.1 % topical cream APPLY A THIN LAYER TO AFFECTED AREA(S) TOPICALL Y TWICE DAILY 02/02 completed Not Available Not Available Not Available ketorolac 0.5 % eye drops 09/24 completed Not Available Not Available Not Available levothyro xine 100 mcg tablet TAKE 1 TABLET BY MOUTH ONCE DAILY 01/31 completed Not Available Not Available Not Available Vagifem 25 mcg vaginal tablet active Not Available Not Available Not Available triamcino lone acetonide 0.1 % dental paste active Not Available Not Available Not Available benzonata te 100 mg capsule active Not Available Not Available Not Available cephalexi n 500 mg capsule Take 1 capsule every 6 hours by oral route for 5 days. 09/26 completed Not Available Not Available Not Available erythromy rosendo 5 mg/gram (0.5 %) eye ointment 09/24 completed Not Available Not Available Not Available levothyro xine 125 mcg tablet TAKE 1 TABLET BY MOUTH ONCE DAILY. STOP 112 MCG DOSE active Not Available Not Available No t Available ranitidin e 150 mg tablet Take 1 tablet twice a day by oral route. 02/03 completed pt stopped this med 01/02/19 -sk Not Available Not Available Not Available Gentle Laxative (bisacody l) 5 mg tablet,de layed release TAKE 4 TABLETS BY MOUTH WITH 8 OZ OF WATER INSTRUCT ED 11/11 completed Not taking 07/30/20 20 LZ Not Available Not Available Not Available fluoromet holone 0.1 % eye drops,tien pension 04/22 completed pt not taking 0 -sk Not Available Not Available Not Available metronida zole 0.75 % topical cream 06/05 completed Not Available Not Available Not Available tretinoin (emollien t) 0.05 % topical cream APPLY A PEA-SIZE D AMOUNT BY TOPICAL ROUTE ONCE DAILY AT BEDTIME 20-30MIN UTES AFTER WASHING FACE 04/22 completed Not Available Not Available Not Available hydroxyzi ne HCl 25 mg tablet TAKE 1 TABLET BY MOUTH ONCE DAILY AT BEDTIME 07/30 completed Not taking 07/30/20 20 LZ Not Available Not Available Not Available Levaquin 500 mg tablet Take 1 tablet every 24 hours by oral route for 10 days. 06/28 completed Not Available Not Available Not Available Synthroid 112 mcg tablet Take 1 tablet every day by oral route for 90 days, for hypothyr oidism. 03/10 completed Not Available Not Available Not Available Cheratuss in AC 10 mg-100 mg/5 mL oral liquid Take 10 mL every 4 hours by oral route. active Not Available Not Available No t Available ibuprofen 600 mg tablet 11/11 completed Not Available Not Available Not Available polyethyl tony glycol 3350 17 gram/dose oral powder Take 17 g every day by oral route. 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 active Not Available Not Available No t Available ondansetr on 4 mg disintegr ating tablet Place 1 tablet every 8 hours by translin gual route as needed. active Not Available Not Available No t Available tobramyci n 0.3 %-dexamet hasone 0.1 % eye drops,tien pension 09/24 completed Not Available Not Available Not Available oxycodone 5 mg tablet TAKE 1 TABLET BY MOUTH EVERY 4 HOURS NEEDED FOR PAIN 01/31 completed Not Available Not Available Not Available Restasis 0.05 % eye drops in a dropperet te 09/[address] Lantigua Not Available Not Available Not Available Vigamox 0.5 % eye drops active Not Available Not Available Not Available Premarin 0.625 mg/gram vaginal cream 02/02 completed [facility] Not Available Not Available Not Available fluocinol one 0.01 % scalp oil and shower cap APPLY TO SCALP ONCE DAILY NEEDED. [facility] 02/06 completed Not Available Not Available Not Available calcium active Not Available Not Avail able Not Available multivita min 06/05 completed Not Available Not Available Not Available ProAir HFA 90 mcg/actua tion aerosol inhaler active Not Available Not Available Not Available GaviLyte- G 236 gram-22.7 4 gram-6.74 gram-5.86 gram oral solution USE DIRECTED PER INSTRUCT IONS 11/11 completed Not Available Not Available Not Available Vagifem 10 mcg vaginal tablet use as directed active Not Available Not Available No t Available Zirgan 0.15 % eye gel active Not Available Not Available Not Available Probiotic active Not Available Not Carmel ilable Not Available Pazeo 0.7 % eye drops 09/26 completed Not Available Not Available Not Available Fluzone High-Dose 6051-4989 (PF) 180 mcg/0.5 mL intramusc ular syringe TO BE ADMINIST ERED BY PHARMACI ST FOR IMMUNIZA TION 03/27 completed Not Available Not Available Not Available Vitamin C (ascorbat e calcium) active Not Available Not Available Not Available Glucosami ne Chondroit in active Not Available Not Available Not Available Flublok Quad (PF) 180 mcg (45 mcg x 4)/0.5 mL IM syringe PHARMACY ADMINIST ERED 11/11 completed Not Available Not Available Not Available Vitals Date Recorded Body height Body mass index (BMI) Body weight Heart rate Systolic blood pressure Diastolic blood pressure Provider Name and Address Organization Details Last Updated DateTime 3 168.91 cm 22.8 kg/m2 24956.4 1 g 72 /min 136 mm[Hg] 72 mm[Hg] Radha Larry MA [facility] 3 08:37:24 Date Recorded Systolic blood pressure Diastolic blood pressure Provider Name and Address Organization Details Last Updated DateTime 02/02/2023 112 mm[Hg] 64 mm[Hg] Angie Power MD [address] [place] [address], [phone], [facility] 02/02/2023 09:03:49 Date Recorded Body height Body mass index (BMI) Body weight Heart rate Systolic blood pressure Diastolic blood pressure Provider Name and Address Organization Details Last Updated DateTime 3 168.91 cm 22.3 kg/m2 13997.3 3 g 80 /min 108 mm[Hg] 68 mm[Hg] Radha Larry MA [facility] 3 09:40:31 Date Recorded Body height Body mass index (BMI) Body weight Heart rate Systolic blood pressure Diastolic blood pressure Provider Name and Address Organization Details Last Updated DateTime 4 168.91 cm 22.9 kg/m2 22986.3 g 64 /min 122 mm[Hg] 64 mm[Hg] Radha Larry MA [facility] 4 10:00:50 Date Recorded Body height Body mass index (BMI) Body weight Heart rate Systolic blood pressure Diastolic blood pressure Provider Name and Address Organization Details Last Updated DateTime 4 168.91 cm 22.7 kg/m2 13022.7 1 g 68 /min 100 mm[Hg] 78 mm[Hg] Radha Larry MA [facility] 4 09:34:30 Date Recorded Body height Body mass index (BMI) Body weight Heart rate Systolic blood pressure Diastolic blood pressure Provider Name and Address Organization Details Last Updated DateTime 4 168.91 cm 22.6 kg/m2 41681.1 2 g 74 /min 120 mm[Hg] 72 mm[Hg] Merissaben chambers, [facility] 4 10:33:59 Social History Question Answer Notes LastModified by Organizat ion Details LastModified Time Tobacco Smoking Status Former Smoker quit age 51 CLAUDETTE Rosenberg, [facility] 05/18/2011 14:09:48 What Is Your Level Of Alcohol Consumption? Moderate 1-2 Per Day With Dinner Information not available 09/13/2015 Do You Wear A Helmet When Biking? Yes Information not available 09/01/2013 What Is Your Level Of Caffeine Consumption? Occasional 2 Cups Per Day [email or web address] Information not available 05/18/2011 What Type Of Diet Are You Following? REGULAR [id number] Information not available 08/03/2011 Which Illicit Or Recreational Drugs Have You Used? None Information not available 09/13/2015 Do You Or Have You Ever Used E-cigarettes Or Vape? Never Used Electronic Cigarettes Information not available 06/25/2020 What Is Your Occupation? Retired [employer] [email or web address] Information not available 05/18/2011 When Did You Quit Smoking? 16+yearssince lastcigarette Information not available 09/13/2015 How Many Days In The Past Year Have You Had A Heavy Drinking Consumption (4+ Female, 5+ Male)? 0 Information not available 09/13/2015 Live Alone Or With Others? With Others [id number] Information not available 08/03/2011 Does The Patient Have Difficulty Speaking Montenegrin? No Information not available 09/13/2015 Does The Patient Have Difficulty Reading Montenegrin? No Information not available 09/13/2015 Patient Has Health Care Proxy Signed And In Chart Yes Son Edwin Daughter Regi [email or web address] Information not available 09/26/2018 MOLST Form Signed And In Chart 09/13/2015 [email or web address] Information not available 09/13/2015 CCM Consent Discussion 12/29/2021 [email or web address] Information not available 12/30/2021 Marital Status Lux Muniz. 54 Yrs. [email or web address] Information not available 09/03/2014 Mosquito Repellent Used Routinely Yes Information not available 09/13/2015 What Was The Date Of Your Most Recent Tobacco Screening? 06/25/2024 [email or web address] Information not available 06/25/2024 How Many Children Do You Have? 2 [id number] Information not available 08/03/2011 What Is Your Current Pack Years? 10packyears 4 Pack Years; Started Age 21 Information not available 09/13/2015 Seat Belts Used Routinely Yes Information not available 09/01/2013 Are You Sexually Active? Yes [email or web address] Information not available 09/13/2015 Smoke Alarm In Home Yes Information not available 09/01/2013 Do You Or Have You Ever Used Smokeless Tobacco? Never Used Smokeless Tobacco Information not available 06/25/2020 How Much Tobacco Do You Smoke? No Information not available 06/25/2020 What Types Of Sporting Activities Do You Participate In? None Information not available 09/13/2015 General Stress Level Low Information not available 09/01/2013 Do You Use Sunscreen Routinely? Yes Information not available 09/13/2015 Do You Or Have You Ever Used Any Other Forms Of Tobacco Or Nicotine? No [email or web address] Information not available 01/31/2022 Sex: Unknown Functional Status None recorded. Mental Status None recorded. Family History Relationship Description Onset Age of this Age Resolved Age Notes LastModified by Organization Details LastModified Time Mother Hypertensive disorder 98 pneumo michael (previ ously record ed as Hypert ension ) renee illo Not available 09/13/2015 10:50:38 Sister Malignant neoplasm of skin previo usly record ed as Cancer - Skin destinydelcast illo Not available 09/13/2015 10:50:38 Brother Problem abdomi nal aneury sm klopezdelcast illo Not available 09/13/2015 10:50:38 Brother Dementia 80 klopezdelcast illo Not available 02/07/2024 10:34:11 Sister Problem 35 cystic fibros is klopezdelcast illo Not available 09/13/2015 10:50:38 Sister Hypothyroidi sm [email or web address] Not available 2018 08:43:53 Father Malignant tumor of stomach 83 heavy smoker klopezdelcast illo Not available 2023 10:07:29 Notes:siblings x 8 living si blings x 7 no osteoporosis Medical History Condition Response Osteoarthritis Y Hypothyroid Y EYE Y Osteoporosis Y Gynecological History Statement/Question Response History of Abnormal Pap No Age at Menarche 14 Date of LMP Obstetrics History GPAL:G 0 P 0 0 0 0 Immunizations Vaccine Type Date Status Note Provider Nam e and Address Organization Details Recorded Time pneumococcal polysaccharide PPV23 1 completed Not Available [facility] 10/04/2019 02:14:54 Influenza, split virus, trivalent, preservative 1 completed Not Available [facility] 10/04/2019 02:18:30 Influenza, split virus, trivalent, preservative 2 completed Not Available [facility] 10/04/2019 02:18:37 Influenza, split virus, trivalent, PF 3 completed Not Available [facility] 10/04/2019 02:29:25 Tdap 0 completed Not Available [facility] 11/16/2022 12:25:58 influenza, unspecified formulation 4 completed Not Available [facility] 11/16/2022 12:25:58 Pneumococcal conjugate PCV 13 5 completed Not Available [facility] 11/16/2022 12:25:58 influenza, unspecified formulation 5 completed [facility] 11/16/2022 12:25:58 Influenza, high-dose, trivalent, PF 6 completed Not Available [facility] 11/16/2022 12:25:58 influenza, unspecified formulation 8 completed Not Available [facility] 11/16/2022 12:25:58 Influenza, high-dose, trivalent, PF 8 completed Radha Larry MA null, [facility] 02/07/2024 09:59:05 Td (adult), 2 Lf tetanus toxoid, preservative free, adsorbed 0 completed Angie Power MD [address] [place] [address], [phone], [facility] 11/10/2019 14:50:04 Influenza, high-dose, trivalent, PF 9 completed Not Available [facility] 11/16/2022 12:25:58 pneumococcal polysaccharide PPV23 9 completed Not Available [facility] 11/16/2022 12:25:58 Influenza, split virus, quadrivalent, preservative 9 completed Not Available [facility] 11/16/2022 12:25:57 pneumococcal polysaccharide PPV23 9 completed Not Available [facility] 11/16/2022 12:25:58 Influenza, split virus, quadrivalent, preservative 0 completed Not Available [facility] 11/16/2022 12:25:57 COVID-19, mRNA, LNP-S, PF, 100 mcg/0.5mL dose or 50 mcg/0.25mL dose 1 completed Not Available [facility] 11/16/2022 12:25:57 COVID-19, mRNA, LNP-S, PF, 100 mcg/0.5mL dose or 50 mcg/0.25mL dose 1 completed Not Available [facility] 11/16/2022 12:25:57 COVID-19, mRNA, LNP-S, PF, 100 mcg/0.5mL dose or 50 mcg/0.25mL dose 1 completed Not Available [facility] 11/16/2022 12:25:58 COVID-19, mRNA, LNP-S, PF, 100 mcg/0.5mL dose or 50 mcg/0.25mL dose 2 completed Not Available [facility] 11/16/2022 12:25:57 COVID-19, mRNA, LNP-S, PF, 30 mcg/0.3 mL dose 10/11/202 2 completed Not Available [facility] 11/16/2022 12:25:58 Past Encounters Encounter ID Performer Location Encounter Start Date Encounter Closed Date Diagnosis/Indication Diagnosis SNOMED-CT Code Diagnosis ICD10 Code [id number] [facility], OFFICE [address] [place] [id number] 05/18/2011 13:54:14 05/18/2011 14:48:50 [id number] TRICE [facility], OFFICE [address] [place] [id number] 08/24/2011 09:44:32 08/24/2011 13:45:14 [id number] Radiology , [facility] [address] [place] [address] 09/21/2011 09:40:41 09/26/2011 09:06:57 [id number] [facility], OFFICE [address] [place] [id number] 12/26/2011 14:18:41 12/26/2011 14:45:34 [id number] MD TRICE Villarreal [facility], OFFICE [address] [place] [id number] 08/26/2012 10:58:28 08/26/2012 12:05:49 [id number] TRICE Jeremiah, OFFICE [address] [place] [id number] 06/04/2013 15:22:04 06/04/2013 16:21:59 Chest pain 93198622 Solitary n odule of lung 337789514 Lesion of liver 53806607 0 Influenza vaccine needed 1967556274 [id number] TRICE Jeremiah, OFFICE [address] [place] [id number] 07/03/2013 08:43:23 07/03/2013 09:45:19 Solitary nodule of lung 402041377 Lesion of liver 47279534 0 Chest pain 98487316 Increased frequency of urination 995306966 [id number] MD TRICE Villarreal, [facility], OFFICE [address] [place] [id number] 09/01/2013 09:45:44 09/01/2013 10:55:13 Adult health examination 986919188 Counseling 583235290 Solitary n odule of lung 317276267 [facility] 01712937 [id number] Angie Power MD , [facility], OFFICE [address] [place] [id number] 12/02/2013 15:35:00 12/02/2013 16:35:40 Multiple nodules of lung 345296841 [id number] Jing Wade CMA , [facility], OFFICE [address] [place] [id number] 06/14/2014 09:21:41 06/14/2014 09:49:14 Cough 36296870 [id number] Jing Wade CMA , [facility], OFFICE [address] [place] [id number] 06/18/2014 08:13:51 06/18/2014 08:51:36 Cough [id number] Pneumonia 249242516 [id number] Jing Wade CMA , [facility], OFFICE [address] [place] [id number] 06/26/2014 11:23:31 06/26/2014 12:34:50 External hemorrhoids 47092315 Pneumonia 821868688 [id number] Angie Power MD , [facility], OFFICE [address] [place] [id number] 09/03/2014 09:45:35 09/03/2014 10:35:43 Adult health examination 076852597 Counseling 371718036 Hypothyroidism 59125582 Multiple n odules of lung 271987860 Osteopenia 139330909 [id number] Angie Power MD , [facility], OFFICE [address] [place] [id number] 09/13/2015 09:43:11 09/13/2015 11:05:35 Adult health examination 302428655 Z00.00 Counseling 783192956 Z71 .9 Active or passive immunization 569232828 Z23 Hypothyroidism 73515760 E03.9 [id number] Angie Power MD , [facility], OFFICE [address] [place] [id number] 09/30/2015 09:43:41 09/30/2015 10:43:32 Impacted cerumen 68788381 H61.21 [id number] Angie Power MD , [facility], OFFICE [address] [place] [id number] 09/14/2016 13:56:34 09/14/2016 14:44:14 Hypothyroidism 47212632 E03.9 Adult heal th examination 923732549 Z00.00 Multiple n odules of lung 047108161 R91.8 Tear film insufficiency 85963184 H04.123 Osteopenia 756107478 M85 .80 [id number] Angie Power MD , [facility], OFFICE [address] [place] [address] [phone] 6 09/24/2017 09:34:48 09/24/2017 10:21:50 Adult health examination 444017266 Z00.00 Counseling 837050861 Z71 .9 Hypothyroidism 46988648 E03.9 [id number] Petra Ornelas PA-C , [facility], OFFICE [address] [place] [address] [id number] 6 03/27/2018 13:55:32 03/27/2018 16:35:53 Infection of sebaceous cyst 864153408 L72.3 [id number] Angie Power MD , [facility], OFFICE [address] [place] [address] [id number] 6 09/26/2018 08:22:55 09/26/2018 09:59:30 Adult health examination 983343284 Z00.00 Counseling 494262471 Z71 .9 Depression screening 171 025597 Z13.89 Hypothyroidism 62891216 E03.9 Osteopenia 582382629 M85 .80 Active or passive immunization 782274219 Z23 Dry eyes 954059143 H04.1 29 [id number] VASYL Carlson, [facility], OFFICE [address] [place] [address] [id number] 6 12/13/2018 16:04:43 12/16/2018 12:55:52 Epigastric pain 12115483 R10.13 Cough 14930286 R05 Elevated blood-pressure reading without diagnosis of hypertension 392397606 R03.0 [id number] COREY Mcelroy, [facility], OFFICE [address] [place] [address] [id number] 6 12/23/2018 09:13:08 12/23/2018 09:44:17 Epigastric pain 38968770 R10.13 Thrombocytosis 6902462 D 47.3 [id number] Donna Monet PA-C , [facility], OFFICE [address] [place] [address] [id number] 6 01/02/2019 13:27:16 01/02/2019 13:59:35 Muscle strain 07339933 T14.8XXA Constipation 16339551 K5 9.00 [id number] Angie Power MD , [facility], OFFICE [address] [place] [address] [phone] 6 02/03/2019 10:14:42 02/03/2019 10:52:51 Abdominal pain 55425977 R10.9 Abdominal bloating 13099 9008 R14.0 [id number] Ann-Marie Rodríguez MD [facility], [address] [phone] 6 04/30/2019 08:26:46 05/01/2019 06:40:29 Osteoporosis 06855504 M81.0 Vitamin D deficiency 347 28853 E55.9 Hypothyroidism 19280323 E03.9 [id number] Kimmie Becerra MD , [facility], OFFICE [address] [place] [address] [id number] 6 05/26/2019 17:27:04 05/27/2019 15:23:17 Rib pain 904579454 R07.81 [id number] Danisha Churchill NP , [facility], OFFICE [address] [place] [address] [phone] 6 07/18/2019 10:25:23 07/18/2019 10:59:11 Hypothyroidism 27719919 E03.9 Vaccine ad verse reaction 806777318 T50.Z95A [id number] Angie Power MD , [facility], OFFICE [address] [place] [address] [id number] 6 11/10/2019 14:03:23 11/10/2019 15:06:52 Adult health examination 613613073 Z00.00 Counseling 578612539 Z71 .9 Depression screening 171 164649 Z13.89 Screening for alcohol abuse 953839651 Z13.39 Hypothyroidism 20269656 E03.9 Active or passive immunization 098851474 Z23 [id number] Dedrick Gary PA-C , [facility], OFFICE [address] [place] [address] [id number] 6 04/22/2020 08:51:35 04/23/2020 09:37:36 Allergic reaction to insect bite 611917556 T78.40XA Pruritic rash 73289587 L 28.2 [id number] Angie Power MD , [facility], OFFICE [address] [place] [address] [id number] 6 06/25/2020 08:47:59 06/28/2020 11:12:32 Hypothyroidism 43741392 E03.9 Osteopenia 767939892 M85 .80 Pre-surger y evaluation 718456831 Z01.818 Bilateral cataracts 9572 2003 H26.9 [id number] Angie Power MD , [facility], OFFICE [address] [place] [address] [id number] 6 07/30/2020 08:55:59 08/02/2020 17:12:54 Pain in right arm 072521677 M79.601 Pain of right thigh 3169 121815 55655 M79.085 [id number] Abigail Calderon, PT Physical Therapy, [address] 30644-178 6 08/04/2020 09:01:50 08/04/2020 10:53:03 Lumbar radiculopathy 471405226 M54.16 [id number] Angie Power MD , [facility], OFFICE [address] [place] [address] [id number] 6 08/19/2020 14:30:36 08/20/2020 09:35:08 Pain in right knee 6938421191 04580 M25.561 Lumbar radiculopathy 128 478612 M54.16 Fracture o f distal end of radius 259574993 S52.501A Fracture o f ulnar styloid 157630059 S52.611A [id number] Abigail Calderon, PT Physical Therapy, [address] 59103-847 6 08/24/2020 08:40:19 08/24/2020 10:13:40 Knee pain 29657302 M25.185 [id number] Abigail Calderon, PT Physical Therapy, [address] 13514-509 6 09/21/2020 08:44:47 09/21/2020 09:47:17 Knee pain 89946912 M25.460 [id number] Angie Power MD , [facility], OFFICE [address] [place] [address] [phone] 6 11/11/2020 09:44:53 11/12/2020 10:44:59 Adult health examination 574069265 Z00.00 Counseling 832813558 Z71 .9 Depression screening 171 995695 Z13.89 Screening for alcohol abuse 720059255 Z13.39 Advance di rective discussed with patient 625600736 Z71.89 Fracture o f distal end of radius 362250123 S52.501A Fracture o f ulnar styloid 371911599 S52.611A Hypothyroidism 16953875 E03.9 Atrophic vaginitis 54770 000 N95.2 Hypoglycemia 878665286 E 16.2 Osteoporosis 48115651 M8 1.0 [id number] PATRIC LYNN NP , [facility], OFFICE [address] [place] [address] [id number] 6 12/29/2021 11:38:43 01/10/2022 08:38:21 Pre-surgery evaluation 604919879 Z01.664 [id number] Angie Power MD , [facility], OFFICE [address] [place] [address] [id number] 6 01/31/2022 08:28:31 01/31/2022 09:25:34 Adult health examination 047570976 Z00.00 Counseling 646689434 Z71 .9 Depression screening 171 496553 Z13.31 Screening for alcohol abuse 787364686 Z13.39 Active or passive immunization 317464873 Z23 Hypothyroidism 87467188 E03.9 Osteoporosis 31482217 M8 1.0 [id number] PATRIC LYNN NP , [facility], OFFICE [address] [place] [address] [id number] 6 09/01/2022 11:11:31 09/04/2022 12:31:14 Pre-surgery evaluation 048144192 Z01.818 Adult [facility] th examination 460873134 Z00.00 Vaginitis 99707857 N76.0 Impacted c erumen in right ear 6949084613 989488 H61.21 [id number] , [facility], OFFICE [address] [place] [address] [id number] 6 09/07/2022 12:14:10 09/07/2022 12:52:27 Active or passive immunization 508144338 Z23 Vaginitis 10585974 N76.0 [id number] Angie Power MD , [facility], OFFICE [address] [place] [address] [id number] 6 02/02/2023 08:26:35 02/02/2023 09:23:13 Adult health examination 036311827 Z00.00 Depression screening 171 602780 Z13.31 Screening for alcohol abuse 819312939 Z13.39 Hypothyroidism 30474394 E03.9 Osteoporosis 89423758 M8 1.0 Rosacea 125952698 L71.9 [id number] Angie Power MD , [facility], OFFICE [address] [place] [address] [id number] 6 2023 09:29:59 2023 10:20:21 Active or passive immunization 111717769 Z23 Epigastric pain 15586148 R10.13 Snoring 92272228 R06.83 [id number] Anige Power MD , [facility], OFFICE [address] [place] [address] [id number] 6 02/07/2024 09:39:58 02/07/2024 10:56:02 Adult health examination 094323968 Z00.00 Depression screening 171 354741 Z13.31 Screening for alcohol abuse 092095953 Z13.39 Hypothyroidism 29345179 E03.9 Obstructiv e sleep apnea syndrome 20616427 G47.33 Rosacea 050279337 L71.9 Osteopenia 799878898 M85 .80 [id number] Angie Power MD , [facility], OFFICE [address] [place] [address] 6 06/05/2024 09:04:16 06/05/2024 13:46:23 Active or passive immunization 615553622 Z23 Cervical radiculopathy 18914797 M54.12 [id number] MD TRICE Villarreal, [facility], OFFICE [address] [place] [address] 6 06/25/2024 10:23:38 06/25/2024 10:57:58 Active or passive immunization 034908277 Z23 Cervical radiculopathy 38543347 M54.12 Hypothyroidism 47244115 E03.9 Scalp itchy 688830379 L2 9.89 Health Concerns Section Related Observation LastModified by Organization Detai ls LastModified Time None Recorded Concern Status LastModified by Organization Details LastModified Time None Recorded Advance Directives Directive None Recorded Payers Encounter Date Sequence Insurance Name Policy Number Policy Herron Covered Member ID Herron Member ID Guarantor Name 02/02/2023 1 [place] [employer] Mary D Kostek [id number] Mary Kostek 02/02/2023 2 [place] [id number] Mary D Kostek [id number] Mary Kostek 2023 1 [place]: [place] [employer] Mary D Kostek [id number] Mary Kostek 2023 2 [place] [id number] Mary D Kostek [id number] Mary Kostek 02/07/2024 1 [place] [employer] Mary D Kostek [id number] Mary Kostek 02/07/2024 2 [place] [id number] Mary D Kostek [id number] Mary Kostek 06/05/2024 1 [place] Mary D Kostek [id number] Mary Kostek 06/05/2024 2 [place] [id number] Mary D Kostek [id number] Mary Kostek 06/25/2024 1 [place] [employer] Mary Ray [id number] Mary Ray 06/25/2024 2 [place] [id number] Mary Ray [id number] Mary Ray Notes Date Note Type Note Provider Name and Address Organization Details Recorded Time 02/03/20 23 text/htm l Risk Assessment and Lifestyle Change Counseling 65+ (Medicare)Reported bypatient.Coronary Artery Disease Risk Assessment:No Family history of coronary artery disease; No personal history of diabetes; No history of peripheral vascular disease, AAA, or carotid disease; No personal history of coronary artery disease Breast Cancer Risk Assessment:No family history of breast cancer; No history of breast cancer or dcis Colon Cancer Risk Assessment:No family history of pre cancerous colon polyps or cancer; Patient has low risk for colon cancer Lung Cancer Risk Assessment:Has used cigarettes less than 30 pack years;Former smoker quit more than 15 years ago; No asbestos exposure Fracture Risk Assessment:No unexplained fracture; No use of corticosteroids; No anti-seizure medication;Abnormal bone density osteoporosis; Has adequate calcium intake; Taking Vitamin D supplement; No chronic use of proton pump inhibitors; Patient has higher than average risk for osteoporotic bone fractures Cognitive/Behavioral Risk Assessment:No personal history of mental illness; No family history of mental illness; Do you or anyone else have concerns about your memory? no; Alcohol use counseled less than 7.5 minutes; Reviewed depression screening less than 7.5 minutes Safety Risk Assessment:Has grab bars in bathroom; Has rails on steps; No falls; No evidence of abuse/neglect; Do you feel safe in your current relationship?YES; Have you ever been a victim of physical/emotional/sexual abuse?NO Functional Status:Patient does not have trouble hearing the television or radio when others do not.; Patient does not have to strain or struggle to hear/understand conversations; Patient does not need help with preparing meals, transportation, shopping, taking medicine, managing finances, or other activities of daily living.; Patient does not have visual loss that interferes with daily activities; Does not live alone; Patient was not unsteady and did not take longer than 30 seconds during the timed get up and go test.; Patient reports no falls in the past 6 months. Diet:Counseled about eating a diet low in trans and saturated fats and high in fiber, fruits and vegetables; Counseled about appropriate calcium intake and good dietary sources of calcium.; Counseled about the importance of maintaining a positive calcium balance and taking 1000 iu Vitamin D daily.; Discussed the value of a Mediterranean diet , and eating more fruits and vegetables Exercise counseling:Discussed the importance of daily physical activity; Discussed the importance of weight bearing exercise Safety:Counseled about protecting skin from the sun and lowering the risk of skin cancer gas Xanxiety - from Angie Power MD [address] [place] [address], [phone], [facility] 02/02/2023 22:40:39 08/23/20 23 text/htm l pt wants to discuss sleep apneastates that her brother was suffering from Afib and then noted that it was his sleep apnea after 6 mos.waking up at night and having only 3 hrs of sleepsnores and pt states she is a mouth breatherwakes up with dry mouthworsening bloating symptoms, wakes up at nightepigastric pressure and discomfort and has to make herself burp and gets bettertakes zantac and sometimes add milk of magnesiafather had stomach cancer Angie Power MD [address] [place] [address], [phone], [facility] 2023 20:42:04 02/07/20 24 text/htm l The provider and patient discussed the Chronic Care Management program, including the services provided, and any fees associated with them. anxiety from with worsening dementia Angie Power MD [address] [place] [address], [phone], [facility] 02/10/2024 11:12:00 02/07/20 24 text/htm l Risk Assessment and Lifestyle Change Counseling (Medicare)Reported bypatient.Coronary Artery Disease Risk Assessment:No Family history of coronary artery disease; No personal history of diabetes; No history of peripheral vascular disease, AAA, or carotid disease; No personal history of coronary artery disease Breast Cancer Risk Assessment:No family history of breast cancer; No history of breast cancer or dcis Colon Cancer Risk Assessment:No family history of pre cancerous colon polyps or cancer; Patient has average risk for colon cancer Lung Cancer Risk Assessment:Has used cigarettes less than 30 pack years;Former smoker quit more than 15 years ago; No symptoms of Lung Cancer; No asbestos exposure Fracture Risk Assessment:No unexplained fracture; balance is normal; No use of corticosteroids; No anti-seizure medication;Abnormal bone density osteopenia; Has adequate calcium intake; Taking Vitamin D supplement; No chronic use of proton pump inhibitors; Patient has higher than average risk for osteoporotic bone fractures Cognitive/Behavioral Risk Assessment:No personal history of mental illness; No family history of mental illness; Do you or anyone else have concerns about your memory? yes Safety Risk Assessment:Has grab bars in bathroom; Has rails on steps; No falls; No evidence of abuse/neglect; Do you feel safe in your current relationship?YES Functional Status:Patient does not have trouble hearing the television or radio when others do not.; Patient does not have to strain or struggle to hear/understand conversations; Patient does not need help with preparing meals, transportation, shopping, taking medicine, managing finances, or other activities of daily living.; Patient does not have visual loss that interferes with daily activities; Does not live alone; Patient was not unsteady and did not take longer than 30 seconds during the timed get up and go test.; Patient reports no falls in the past 6 months. Diet:Counseled about eating a diet low in trans and saturated fats and high in fiber, fruits and vegetables; Counseled about appropriate calcium intake and good dietary sources of calcium.; Counseled about the importance of maintaining a positive calcium balance and taking 1000 iu Vitamin D daily.; Discussed the value of a Mediterranean diet , and eating more fruits and vegetables Exercise counseling:Discussed the importance of daily physical activity; Discussed the importance of weight bearing exercise Safety:Counseled about protecting skin from the sun and lowering the risk of skin cancer Angie Power MD [address] [place] [address], [phone], [facility] 02/10/2024 11:12:00 06/05/20 24 text/htm l sore left arm starting up near the neckstarted in January when she started gardeningwhole left arm is stiff and achy and wakes her up at nightstiffness felt in her neck during the dayworse stiffness and achy with movementachy when putting a jacket on, brushing her hairtried tylenol, heat or ice,Pt c/o neck pain C6 and C7 area and goes across L shoulder blade and down LE arm, often feels like tendonitis at night. Angie Power MD [address] [place] [address], [phone], [facility] 06/05/2024 11:03:28 06/25/20 24 text/htm l 06/25/24-pt wants to see endocrinologyhx of hypothyroidismhas been on levothyroxine since age 41tried synthroid for 1 month and symptoms are the samestarted having itchy scalp dry eye, hair lossstates all her symptoms are present in the past 4-5 yrsosteoporosisanxietydigestive problems - bloating and flatulenceitchy skin on stomachsaw derm and given topical script for itchy scalp and not effectivesome nodules on scalp but derm did see that and reassured, pt feels this is from her hypothyroidismlast TSH March 2024 : 2.57 Angie Power MD [address] [place] [address], [phone], [facility] 06/25/2024 10:55:12 OBGyn Episode No OBEpisode recorded.
--- OUTSIDE RECORDS SUMMARY | 2024-09-09 09:24 | XMS_ITS | Patient Health Record ---
Author Organization [facility] [place] Address [address] [place] [address] Care Team Providers Care Conference Coordinator Name Role Phone Elia Wilkins MD, [facility] Primary [facility] Provi ricardo Unavailable Esvin Quang Unavailable [phone] Allergies No Known Allergies Reason For Referral [...] W/U Status Risk Notes Problem Tinea unguium (075494867) Tinea unguium (B35.1) Active confirmed Topical treatment since Plan Of Treatment Pending Test Test Name Order Date [id number] NAIL, 6 OR MORE 12/14/2020 Insurance Providers Payer Name Payer Address Payer Phone Subscriber Number Group Number Insured Name Patient Relationship to Insured Coverage Start Date Coverage End Date Medicare National [facility] [employer] [address] [place] [address] [id number] Mary Ray Self - patient is the insured [employer] [address] [place] [address] [id number] [employer] Mary Self - patient is the insured Medical (General) History Medical History History ICD Code Anemia Arthritis Back,Hip,and Knee pain Broken bones Diverticulosis Hiatal hernia chronic sinusitis Thyroid disorder Measles Mumps Joint implants/screws Cataracts Osteoporosis thyroid Chicken pox Surgical History Surgery Date(Month/Year) D&C 1965 Right great toe - Osmin implant 2004
--- OUTSIDE RECORDS SUMMARY | 2024-09-09 09:24 | XMS_ITS | Continuity of Care Document ---
Author Organization [facility], , [facility], OFFICE Address [address] [place] [address] Care Team Providers Care Building Services Engineer Name Role Phone ANGIE PATEL Primary Care Provide r KIMMIE CANTRELL OTHER RONAN LANTIGUA OTHER ANN-MARIE MARMOLEJO Hyperbaric Nurse PARIS GOMES Orthopedist Assessment No assessment recorded. Plan of Treatment Reminders Order Date Submit Date Provider Last Modified By Organization Details Last Modified Time Details Appointments LAB Follow-Up 2024 08:00A M [facility] Lab Not available Not available Not available Wellness Visit 30 2024 08:30A M Angie Power MD Not available Not available Not available Lab None recorded. Referral physical therapist referral - neck pain pls eval and tx 2023 [email or web address] [facility], [address], [place], [address], 06/25/2024 12:46:07 pickle pumper & immunolog ist referral - persisten t itchy scalp x 4-5 yrs 2023 [facility], [address] [facility], [place], [address], 06/25/2024 10:59:10 endocrino logy referral - hypothyro idism with a myriad of symptoms, pls review HPI 2023 [email or web address] Arroyo MD, [address], [place], [address], 08/22/2024 16:36:53 Procedures None recorded. Surgeries None recorded. Imaging None recorded. Medication Orders None recorded. Patient TargetsNo targets recorded. Patient InstructionsNo instructions recorded. 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 IMPRES MARIA ISABEL: 1. Modera tely severe cervic al spondy losis. . 2. Straig htenin g of the cervic al spine may be due to spasm. Readin g Physic scott: Mina Olvera [facility] (Imaging) [address], [place], [address], 06/08/2024 14:08:59 Result Notes None recorded. Problems Name Problem SNOMED Code Status Onset Date Resolution Date Notes Provider Name and Address Organization Details Recorded Time Anemia 409437845 Active MD [place], [address], [facility] 5 10:38:47 Common cold 58994298 Completed 08/06/2013 Angie Power MD [address] [place] [address] [place], [address], [facility] 5 10:38:47 Hypothyro idism 01407342 Active Angie Power MD [address] [place] [address] [place], [address], [facility] 5 11:03:03 Solitary nodule of lung 972448387 Active Angie Power MD [address] [place] [address] [place], [address], [facility] 5 10:38:47 Chest pain 78513661 Completed 08/06/2013 Angie Power MD [address] [place] [address] [place], [address], [facility] 5 10:38:47 Multiple nodules of lung 420138745 Active Angie Power MD [address] [place] [address] [place], [address], [facility] 5 10:38:47 Osteopeni a 390127868 Active Angie Power MD [address] [place] [address] [place], [address], [facility] 5 10:38:47 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 Angie Power MD [address] [place] [address] [place], [address], [facility] 6 04:40:13 Osteoporo sis 44396067 Active 2021 MD [place], [address], [facility] 2 20:04:58 Allie 871053338 Active 2022 Angie Power MD [address] [place], [place] [address], [address], [facility] 3 22:24:21 Obstructi ve sleep apnea syndrome 79844207 Active 2023 Angie Power MD [address] [place] [address] [place], [address], [facility] 4 10:27:19 Closed fracture of right humerus 418040258199 38367 Active 2023 Jacklyn Mohr RN null, [facility] 4 16:50:48 Problem Notes None recorded. Procedures Surgical History Date Name Laterality Status Provider Name and Address Organization Details Recorded Time 02/07/20 24 Medicare Wellness Visit completed Radha Larry MA [facility] 02/07/2024 08:11:21 08/23/20 23 [place] Sleepiness Scale completed Angie Power MD [address] [place] [address], [address], [facility] 2023 10:16:31 02/03/20 23 Medicare Wellness Visit completed Radha Larry MA [facility] 02/02/2023 07:53:38 02/01/20 22 Medicare Wellness Visit completed Radha Larry MA [facility] 01/31/2022 08:02:59 02/01/20 22 Alcohol use screening completed Radha Larry MA [facility] 01/31/2022 08:02:59 02/01/20 22 Cardiovascular disease risk reduction counseling completed Radha Larry MA [facility] 01/31/2022 08:02:59 02/01/20 22 Medicare Risk for Falls Screen completed Radha Larry MA [facility] 01/31/2022 08:44:32 01/07/20 22 Other (specify) completed Petra Ornelas PA-C [address] [place] [address], [address], [facility] 04/24/2022 13:58:39 11/11/19 21 Medicare Wellness Visit completed Melody Macias [facility] 11/11/2020 09:45:15 11/11/19 21 prevention-cardiov ascular risk reduction counseling completed Melody Colleen, [facility] 11/11/2020 09:45:15 11/11/19 21 prevention-annual alcohol misuse screening completed Melody Macias [facility] 11/11/2020 09:45:15 11/11/19 21 Advanced Care Planning completed Melody Macias [facility] 11/11/2020 09:45:16 09/21/19 21 [address]228: Therapeutic Exercise completed Abigail Calderon, PT [address] [place], [address], [facility] 09/21/2020 09:35:01 08/24/20 20 08170: Therapeutic Exercise completed Abigail Calderon, PT [address] [place], [address], [facility] 08/24/2020 09:54:03 08/19/20 20 Post hospital/SNF follow-up/Transiti onal Care completed Brissa Schneider [facility] 08/19/2020 14:08:49 08/04/20 20 Physical Activity Counselling completed Abigail Calderon, PT [address] [place], [address], [facility] 08/04/2020 10:16:50 08/04/20 20 [address]221: PT Eval Low Complexity completed Abigail Calderon, PT [address] [place], [address], [facility] 08/04/2020 10:16:53 05/12/20 20 Colonoscopy completed Angie Power MD [address] [place], [address], [facility] 11/11/2020 20:30:20 11/10/19 20 Medicare Wellness Visit completed Camden Valeroi CMA [facility] 11/10/2019 14:06:43 11/10/19 20 prevention-cardiov ascular risk reduction counseling completed Camden Valerio [facility] 11/10/2019 14:06:43 11/10/19 20 prevention-annual alcohol misuse screening completed Camden Valerio [facility] 11/10/2019 14:06:43 12/14/19 19 POC Strep Testing completed Krystal Esquivel LPN [facility] 12/16/2018 12:21:04 09/26/19 19 Medicare Wellness Visit completed Jing Wade, [facility] 09/26/2018 08:27:57 09/26/19 19 [facility] 09:39:33 09/26/19 19 Advanced Care Planning completed Angie Power MD [address] [place] [address], [address], [facility] 09/26/2018 09:24:45 09/24/19 18 Medicare Wellness Visit completed Jing Wade [facility] 09/24/2017 09:47:16 09/24/19 18 [facility] 09:39:01 09/30/19 16 Cerumen Removal completed Angie Power MD [address] [place] [address], [address], [facility] 09/30/2015 20:25:35 09/13/20 15 Medicare Wellness Visit completed Jing Wade [facility] 09/13/2015 09:53:00 09/03/20 14 Medicare Wellness Visit completed Jing Wade [facility] 09/03/2014 09:54:57 09/01/20 13 Medicare Wellness Visit completed Elise Hart [facility] 09/01/2013 09:56:59 08/26/20 12 Medicare Wellness Visit completed Jing Wade [facility] 08/26/2012 11:30:58 08/24/20 11 Medicare Wellness Visit completed Jing Wade [facility] 08/24/2011 10:05:34 01/21/20 10 Colonoscopy completed Angie Power MD [address] [place] [address], [address], [facility] 09/07/2013 16:13:37 Tubal Ligation completed Not Available [facility] 08/03/2011 06:06:16 Imaging Results None recorded. Procedure Notes None recorded. 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 [facility] M[facility]/06 [...] Available Not Available Not Available Fluzone High-Dose 2922-0542 (PF) 180 mcg/0.5 mL intramusc ular syringe TO BE ADMINIST ERED BY PHARMACI ST FOR IMMUNIZA TION 03/27 completed Not Available Not Available Not Available Vitamin C (ascorbat e calcium) active Not Available Not Available Not Available Glucosami ne Chondroit in active Not Available Not Available Not Available Flublok Quad (PF) 180 mcg (45 mcg x 4)/0.5 mL IM syringe PHARMACY ADMINIST MARVIN 11/11 completed Not Available Not Available Not Available Vitals Date Recorded Body height Body mass index (BMI) Body weight Heart rate Systolic blood pressure Diastolic blood pressure Provider Name and Address Organization Details Last Updated DateTime 4 168.91 cm 22.6 kg/m2 52412.1 2 g 74 /min 120 mm[Hg] 72 mm[Hg] Merissa Vila user, A [facility] 4 10:33:59 Social History Question Answer Notes LastModified by Organizat ion Details LastModified Time Tobacco Smoking Status Former Smoker quit age 51 Ifrah Cifuentes, NON PROFIT DIRECTOR null, [facility] 05/18/2011 14:09:48 What Is Your Level Of Alcohol Consumption? Moderate 1-2 Per Day With Dinner [email or web address] Information not available 09/13/2015 Do You Wear A Helmet When Biking? Yes Information not available 09/01/2013 What Is Your Level Of Caffeine Consumption? Occasional 2 Cups Per Day [email or web address] Information not available 05/18/2011 What Type Of Diet Are You Following? REGULAR Information not available 08/03/2011 Which Illicit Or Recreational Drugs Have You Used? None Information not available 09/13/2015 Do You Or Have You Ever Used E-cigarettes Or Vape? Never Used Electronic Cigarettes Information not available 06/25/2020 What Is Your Occupation? Retired [employer] Information not available 05/18/2011 When Did You Quit Smoking? 16+yearssince lastcigarette Information not available 09/13/2015 How Many Days In The Past Year Have You Had A Heavy Drinking Consumption (4+ Female, 5+ Male)? 0 Information not available 09/13/2015 Live Alone Or With Others? With Others [id number] Information not available 08/03/2011 Does The Patient Have Difficulty Speaking Kinyarwanda? No Information not available 09/13/2015 Does The Patient Have Difficulty Reading Kinyarwanda? No Information not available 09/13/2015 Patient Has Health Care Proxy Signed And In Chart Yes Son Edwin Daughter Regi [email or web address] Information not available 09/26/2018 MOLST Form Signed And In Chart 09/13/2015 [email or web address] Information not available 09/13/2015 CCM Consent Discussion 12/29/2021 [email or web address] Information not available 12/30/2021 Marital Status Lux Peace M. 54 Yrs. Information not available 09/03/2014 Mosquito Repellent Used Routinely Yes Information not available 09/13/2015 What Was The Date Of Your Most Recent Tobacco Screening? 06/25/2024 [email or web address] Information not available 06/25/2024 How Many Children Do You Have? 2 Information not available 08/03/2011 What Is Your Current Pack Years? 10packyears 4 Pack Years; Started Age 21 Information not available 09/13/2015 Seat Belts Used Routinely Yes Information not available 09/01/2013 Are You Sexually Active? Yes Information not available 09/13/2015 Smoke Alarm In [...] ously record ed as Hypert ension ) lucindacast illo Not available 09/13/2015 10:50:38 Sister Malignant neoplasm of skin previo usly record ed as Cancer - Skin klopezdelcast illo Not available 09/13/2015 10:50:38 Brother Problem [...] pneumococcal polysaccharide PPV23 1 completed Not Available [facility] 10/04/2019 02:14:54 Influenza, split virus, trivalent, preservative 1 completed Not Available [facility] 10/04/2019 02:18:30 Influenza, split virus, trivalent, preservative 2 completed Not Available [facility] 10/04/2019 02:18:37 Influenza, split virus, trivalent, PF 3 completed Not Available [facility] 10/04/2019 02:29:25 Tdap 0 completed Not Available [facility] 11/16/2022 12:25:58 influenza, unspecified formulation 4 completed Not Available [facility] 11/16/2022 12:25:58 Pneumococcal conjugate PCV 13 5 completed Not Available [facility] 11/16/2022 12:25:58 influenza, unspecified formulation 5 completed Not Available [facility] 11/16/2022 12:25:58 Influenza, high-dose, trivalent, PF 6 completed Not Available [facility] 11/16/2022 12:25:58 influenza, unspecified formulation 8 completed Not Available [facility] 11/16/2022 12:25:58 Influenza, high-dose, trivalent, PF 8 completed DANIEL Mccullough, [facility] 02/07/2024 09:59:05 Td (adult), 2 Lf tetanus toxoid, preservative free, adsorbed 0 completed Angie Power MD [address] [place] [address], [address], [facility] 11/10/2019 14:50:04 Influenza, high-dose, trivalent, PF 9 completed Not Available [facility] 11/16/2022 12:25:58 pneumococcal polysaccharide PPV23 9 completed Not Available [facility] 11/16/2022 12:25:58 Influenza, split virus, quadrivalent, preservative 9 completed Not Available [facility] 11/16/2022 12:25:57 pneumococcal polysaccharide PPV23 9 completed Not Available [facility] 11/16/2022 12:25:58 Influenza, split virus, quadrivalent, preservative 0 completed Not Available [facility] 11/16/2022 12:25:57 COVID-19, mRNA, LNP-S, PF, 100 [...] mRNA, LNP-S, PF, 30 mcg/0.3 mL dose 2 completed Not Available [facility] 11/16/2022 12:25:58 Past Encounters Encounter ID Performer Location Encounter Start Date Encounter Closed Date Diagnosis/Indication Diagnosis SNOMED-CT Code Diagnosis ICD10 Code [id number] Angie Power MD , [facility], OFFICE [address] [place] [address] 06/05/2024 09:04:16 06/05/2024 13:46:23 Active or passive immunization 781400606 Z23 Cervical radiculopathy 32853894 M54.12 [id number] Angie Power MD , [facility], OFFICE [address] [place] [address] 06/25/2024 10:23:38 06/25/2024 10:57:58 Active or passive immunization 484824387 Z23 Cervical radiculopathy 59446328 M54.12 Hypothyroidism 24790740 E03.9 Scalp itchy 063459311 L2 9.89 Health Concerns Section Related Observation LastModified by Organization Detai ls LastModified Time None Recorded Concern Status LastModified by Organization Details LastModified Time None Recorded Payers Encounter Date Sequence Insurance Name Policy Number Policy Herron Covered Member ID Herron Member ID Guarantor Name 06/25/2024 1 MEDICARE B-[place]: [facility] Mary Barthtek [id number] Maryromario Barthtek 06/25/2024 2 [facility] [place]MEDIC[place] SUPPLEMENT) [id number] Mary Mendoza Kostek [id number] Mary Ray Notes Date Note Type Note Provider Name and Address Organization Details Recorded Time 06/25/20 24 text/htm l 06/25/24-pt wants to [...] March 2024 : 2.57 Angie Power MD [address] [place] [address], [address], [facility] 06/25/2024 10:55:12 OBGyn Episode No OBEpisode recorded.
[2024-09-09 09:38] VITALS: BMI 21.9
== END 2024-09-09 10:03 | disposition home or self-care (01) ==
PROVIDERS: PCP Family Medicine
DX: S42.301A Unspecified fracture of shaft of humerus, right arm, initial encounter for closed fracture (principal)
CPT/HCPCS: 99213

== ENCOUNTER → 2024-09-09 09:21 | Outpatient (BNVA) | payer MEDICARE, SELFPAY | PROVIDERS: PCP Family Medicine | DX: S42.341A Displaced spiral fracture of shaft of humerus, right arm, initial encounter for closed fracture (principal); W01.0XXA Fall on same level from slipping, tripping and stumbling without subsequent striking against object, initial encounter; Y93.9 Activity, unspecified; Y92.9 Unspecified place or not applicable; Y99.9 Unspecified external cause status | CPT/HCPCS: 99212 ==

== ENCOUNTER 2024-09-22 07:44 | Outpatient (REF) | payer MEDICARE, SELFPAY ==
--- NOTE | ~2024-09-22 | XR_ITS ---
EXAMINATION: XR HUMERUS RIGHT HISTORY: S42.301A - Unspecified fracture of shaft of humerus, right arm, initial ... COMPARISON: Comparison is made with the prior examination dated 09/01/2024. FINDINGS: AP and lateral views of the right humerus are submitted. Osseous mineralization is normal. Again seen is a comminuted angulated fracture of the similar appearance to the prior study. Minimal callus formation is seen consistent with healing. There is degenerative change of the AC joint. The soft tissues are unremarkable. XR/XR humerus RT IMPRESSION: Comminuted angulated fracture of the right humerus with minimal callus formation, consistent with healing. Electronically signed by: Bill Hendricks MD 09/24/2024 03:37 PM EST
--- OUTSIDE RECORDS SUMMARY | 2024-09-22 07:48 | XMS_ITS | Data Portability ---
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 Lab Not available Not available Not available Wellness Visit 30 2024 08:30A M Angie Power MD Not available Not available Not available Lab TSH, serum or plasma 2023 024 [facility], [address] [facility], [place], [address], 04/01/2024 11:31:02 Referral sleep medicine referral - would like a sleep apnea eval 2022 023 [facility], [address] [facility], [facility] [address], [place], [address], 12/26/2023 16:18:57 physical therapist referral - cervical radiculop athy symptoms L UE achy pain x 4 months, pending CS xray 2023 024 [facility] [address] [facility], [address], [place], [address], 06/05/2024 13:46:23 physical therapist referral - neck pain pls eval and tx 2023 [email or web address] 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 - persisten t itchy scalp x 4-5 yrs 2023 [facility], [address] [facility], [place], [address], 06/25/2024 10:59:10 endocrino logy referral - hypothyro idism with a myriad of symptoms, pls review HPI 2023 [email or web address] Arroyo MD, [address], [facility], [place], [address], 08/22/2024 16:36:53 general surgeon referral - B/L inguinal hernia please wait until she is healed from her humeral fx 2024 025 [email or web address] Carmen Scott, [address], [place], [address], 09/20/2024 20:00:03 Procedures None recorded. Surgeries None recorded. Imaging XR, cervical spine - cervical radiculop athy symptoms since January 2024 hx of osteopeni a [address] [facility] ([facility]), [address], [place], [address], 06/05/2024 13:46:23 Medication Orders Synthroid 125 mcg tablet 2023 024 [facility], [address] [place], [address], 02/07/2024 10:54:13 Patient TargetsNo targets recorded. Patient Instructions Encounter Date Encounter Id Patient Instructions Last Modified By Organization Details Last Modified Time 2023 [id number] After a discussion of treatment and medication options, which included consideration of the best practices in medicine, a medical plan was provided. The patient's opinions and concerns were included in this treatment plan and goal. 1. went into [facility] and reviewed endoscopy 2019 and pathology normal. 2. referral to sleep study and pt will call for an appt 3. trial of over the counter omeprazole (prilosec) and take 30 min before breakfast or first meal of the day for 14 days , and send me a message on the portal. [email or web address] Not available 2023 10:18:44 02/07/2024 [id number] CCM: The provider and patient discussed the Chronic Care Management program, including the services provided, and any fees associated with them. [email or web address] Not available 02/07/2024 10:04:27 09/19/2024 [id number] I am aware of the inpatient facility discharge medications, the medication list above has been reconciled with those medications and reflects my understanding of an up to date medication list for this patient. [email or web address] Not available 09/19/2024 15:19:18 Reason for Referral Sleep Medicine Referral for Snoring would like a sleep apnea eval Referring Physician: Angie Power [facility], Encounter Date: 2023 Physical Therapist Referral for Cervical radiculopathy cervical radiculopathy symptoms L UE achy pain x 4 months, pending CS xray Referring Physician: Angie Power [facility], Encounter Date: 06/05/2024 Physical Therapist Referral for Cervical radiculopathy neck pain pls eval and tx Referring Physician: Angie Power [facility], Encounter Date: 06/25/2024 Endocrinology Referral for H ypothyroidism hypothyroidism with a myriad of symptoms, pls review HPI Referring Physician: Angie Power [facility], Encounter Date: 06/25/2024 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 METAB OLIC PANEL glucose 71 mg/dL 70-100 Not Available [address], [address], 01/29/2024 12:37:40 01/29/20 24 01/29/2024 COMP. METAB OLIC PANEL BUN 21 mg/dL 7-18 high Not Available [address], [address], 01/29/2024 12:37:40 01/29/20 24 01/29/2024 COMP. METAB OLIC PANEL creatinine 0.7 mg/dL 0.8-1. 3 low Not Available [address], [address], 01/29/2024 12:37:40 01/29/20 24 01/29/2024 COMP. METAB OLIC PANEL B/C 30.0 ratio Not Available [address], [address], 01/29/2024 12:37:40 01/29/20 24 01/29/2024 COMP. METAB [...] borat ion (CKD- EPI) Equat ion (Lolita dangelo et. al 2020) as recom malick d by the Natio nal Kidne y [facility] ation . eGFR is based on age, serum creat inine , and sex. CKD-E PI does not calcu late eGFR by race, does not apply to child zoran (age <18 years ), and shoul d not be used in pregn ana. Not Available [address], [address], 01/29/2024 12:37:40 01/29/20 24 01/29/2024 COMP. METAB OLIC PANEL sodium 140 mmol/ L 136-14 5 Not Available [address], [address], 01/29/2024 12:37:40 01/29/20 24 01/29/2024 COMP. METAB OLIC PANEL potassium 3.9 mmol/ L 3.5-5. 1 Not Available [address], [address], 01/29/2024 12:37:40 01/29/20 24 01/29/2024 COMP. METAB OLIC PANEL chloride 102 mmol/ L 96-107 Not Available [address], [address], 01/29/2024 12:37:40 01/29/20 24 01/29/2024 COMP. METAB OLIC PANEL anion gap 9.5 5.0-15 .0 Not Available [address], [address], 01/29/2024 12:37:40 01/29/20 24 01/29/2024 COMP. METAB OLIC PANEL CO2 29 mmol/ L 21-32 Not Available [address], [address], 01/29/2024 12:37:40 01/29/20 24 01/29/2024 COMP. METAB OLIC PANEL calcium 8.6 mg/dL 8.5-10 .3 Not Available [address], [address], 01/29/2024 12:37:40 01/29/20 24 01/29/2024 COMP. METAB OLIC PANEL total protein 6.9 g/dL 6.4-8. 2 Not Available [address], [address], 01/29/2024 12:37:40 01/29/20 24 01/29/2024 COMP. METAB OLIC PANEL albumin 3.6 g/dL 3.4-5. 0 Not Available [address], [address], 01/29/2024 12:37:40 01/29/20 24 01/29/2024 COMP. METAB OLIC PANEL globulin 3.3 g/dL Not Available [address], [address], 01/29/2024 12:37:40 01/29/20 24 01/29/2024 COMP. METAB OLIC PANEL A/G 1.1 ratio 0.8-2. 0 Not Available [address], [address], 01/29/2024 12:37:40 01/29/20 24 01/29/2024 COMP. METAB OLIC PANEL total bilirubin 0.50 mg/dL 0.00-1 .00 Not Available [address], [address], 01/29/2024 12:37:40 01/29/20 24 01/29/2024 COMP. METAB OLIC PANEL AST 23 U/L 0-37 Not Available [address], [address], 01/29/2024 12:37:40 01/29/20 24 01/29/2024 COMP. METAB OLIC PANEL ALT 27 U/L 6-63 Not Available [address], [address], 01/29/2024 12:37:40 01/29/20 24 01/29/2024 COMP. METAB OLIC PANEL alk. phos. 82 U/L 50-136 Not Available [address], [address], 01/29/2024 12:37:40 01/29/20 24 01/29/2024 TSH TSH 8.51 uIU/m L 0.50-6 .00 high The Ameri can Colle ge of Endoc rinol ogy and Ameri can Thyro id Assoc iatio n recom mend goal TSH value s betwe en 0.4-4 .0 mIU/m L. Not Available [address], [address], 01/29/2024 13:43:14 01/29/20 24 01/29/2024 VITAM IN [...] er than 30 ng/mL . Not Available [address], [address], 01/29/2024 13:43:15 04/01/20 24 04/01/2024 TSH TSH 2.57 uIU/m L 0.50-6 .00 The Ameri can Colle ge of Endoc rinol ogy and Ameri can Thyro id Assoc iatio n recom mend goal TSH value s betwe en 0.4-4 .0 mIU/m L. Not Available [address], [address], 04/01/2024 11:31:01 08/27/2005/12/2020 upper endos copy (EGD) with colon oscop [...] spine may be due to spasm. Readin [email or web address] Physic scott: Mina Olvera [facility]) [address], [place], [address], 06/08/2024 14:08:59 Result Notes None recorded. Problems Name Problem SNOMED Code Status Onset Date Resolution Date Notes Provider Name and Address Organization Details Recorded Time Anemia 961812060 Active Angie Power MD [address] [place], [place] [address], [address], [facility] 5 10:38:47 Common cold 25751306 Completed 08/06/2013 Angie Power MD [address] [place], [place] [address], [address], [facility] 5 10:38:47 Hypothyro idism 16053161 Active Angie Power MD [address] [place], [place] [address], 1, [facility] 5 11:03:03 Solitary nodule of lung 363940214 Active Angie Power MD [address] [place], [place] [address], [address], [facility] 5 10:38:47 Chest pain 12957147 Completed 08/06/2013 Angie Power MD [address] [place], [place] [address], [address], [facility] 5 10:38:47 Multiple nodules of lung 350835855 Active Angie Power MD [address] [place], [place] [address], [address], [facility] 5 10:38:47 Osteopeni a 480345085 Active Angie Power MD [address] [place], [place] [address], [address], [facility] 5 10:38:47 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 Angie Power MD [address] [place], [place] [address], [address], [facility] 6 04:40:13 Osteoporo sis 39000584 Active 2021 Angie Power MD [address] [place], [place] [address], [address], [facility] 2 20:04:58 Rosacea 899835760 Active 2022 Angie Power MD [address] [place], [place] [address], [address], [facility] 3 22:24:21 Obstructi ve sleep apnea syndrome 34867565 Active 2023 Angie Power MD [address] [place], [place] [address], [address], [facility] 4 10:27:19 Closed fracture of right humerus 283008791051 [address] Active 2023 Jacklyn Mohr RN null, [facility] 4 16:50:48 Intestina l obstructi on 73859836 Active 2024 [facility] Kelli Craft null, [facility] 5 11:07:48 Problem Notes None recorded. Procedures Surgical History Date Name Laterality Status Provider Name and Address Organization Details Recorded Time 09/19/19 25 Post hospital/SNF follow-up/Transiti onal Care completed Cassidy Fisher [facility] 09/19/2024 15:19:18 02/07/20 24 Medicare Wellness Visit completed Radha Larry MA [facility] 02/07/2024 08:11:21 08/23/20 23 [place] Sleepiness Scale completed Angie Power MD [address] [place] [address], [address], [facility] 2023 10:16:31 02/03/20 23 Medicare Wellness Visit completed Radha Larry MA [facility] 02/02/2023 07:53:38 02/01/20 22 Medicare Wellness Visit completed Radha Larry MA [facility] 01/31/2022 08:02:59 02/01/20 22 Alcohol use screening completed Radha Larry MA [facility] 01/31/2022 08:02:59 02/01/20 22 Cardiovascular disease risk reduction counseling completed Radha Larry [facility] 01/31/2022 08:02:59 02/01/20 22 Medicare Risk for Falls Screen completed Radha Larry [facility] 01/31/2022 08:44:32 01/07/20 22 Other (specify) completed Petra Ornelas PA-C [address] [place] [address], [address], [facility] 04/24/2022 13:58:39 11/11/19 21 Medicare Wellness Visit completed Melody Macias MA [facility] 11/11/2020 09:45:15 11/11/19 21 prevention-cardiov ascular risk reduction counseling completed Melody Macias MA [facility] 11/11/2020 09:45:15 11/11/19 21 prevention-annual alcohol misuse screening completed Melody Macias MA [facility] 11/11/2020 09:45:15 11/11/19 21 Advanced Care Planning completed Melody Macias MA [facility] 11/11/2020 09:45:16 09/21/19 21 [address]: Therapeutic Exercise completed Abigail Calderon, PT [address] [place], [address], [facility] 09/21/2020 09:35:01 08/24/20 20 [address]: Therapeutic Exercise completed Abigail Calderon, PT [address] [place], [address], [facility] 08/24/2020 09:54:03 08/19/20 20 Post hospital/SNF follow-up/Transiti onal Care completed Brissa Schneider [facility] 08/19/2020 14:08:49 08/04/20 20 Physical Activity Counselling completed Abigail Calderon, PT [address] [place], [address], [facility] 08/04/2020 10:16:50 08/04/20 20 [address]: PT Eval Low Complexity completed Abigail Calderon, PT [address] [place], [address], [facility] 08/04/2020 10:16:53 05/12/20 20 Colonoscopy completed Angie Power MD [address] [place], [address], [facility] 11/11/2020 20:30:20 11/10/19 20 Medicare Wellness Visit completed Camden Valerio [facility] 11/10/2019 14:06:43 11/10/19 20 prevention-cardiov ascular risk reduction counseling completed Camden Valerio [facility] 11/10/2019 14:06:43 11/10/19 20 prevention-annual alcohol misuse screening completed Camden Valerio [facility] 11/10/2019 14:06:43 12/14/19 19 POC Strep Testing completed Krystal Esquivel LPN [facility] 12/16/2018 12:21:04 09/26/19 19 Medicare Wellness Visit completed Jing Wade [facility] 09/26/2018 08:27:57 09/26/19 19 Cerumen Removal - Irrigation/Lavage completed Jing Wade [facility] 09/26/2018 09:39:33 01/10/20 19 Advanced Care Planning completed Angie Power MD [address] [place] [address], [address], [facility] 09/26/2018 09:24:45 09/24/19 18 Medicare Wellness Visit completed Jing Wade [facility] 09/24/2017 09:47:16 09/24/19 18 Advanced Care Planning completed Jing Wade [facility] 09/24/2017 09:39:01 09/30/19 16 Cerumen Removal completed Angie Power MD [address] [place] [address], [address], [facility] 09/30/2015 20:25:35 09/13/20 15 Medicare Wellness Visit completed Jing Wade [facility] 09/13/2015 09:53:00 09/03/20 14 Medicare Wellness Visit completed Jing Wade [facility] 09/03/2014 09:54:57 09/01/20 13 Medicare Wellness Visit completed Elise Hart [facility] 09/01/2013 09:56:59 08/26/20 12 Medicare Wellness Visit completed Jing Wade [facility] 08/26/2012 11:30:58 08/24/20 11 Medicare Wellness Visit completed Jing Wade [facility] 08/24/2011 10:05:34 01/21/20 10 Colonoscopy completed Angie Power MD [address] [place] [address], [address], [facility] 09/07/2013 16:13:37 Tubal Ligation completed Not Available [facility] 08/03/2011 06:06:16 Imaging Results Imaging Date Name Status LastModified by Organization Details LastModified Time 05/12/2020 upper endoscopy (EGD) with colonoscopy (PROC) completed Information not available 08/27/2023 18:06:19 01/31/2019 upper endoscopy procedure (EGD) (PROC) completed Information not available 08/27/2023 18:06:19 06/05/2024 XR, cervical spine completed [facility] [address], [place], [address], 06/08/2024 14:08:59 Procedure Notes None recorded. 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 09/19 completed 09/19/2024 - pt declines to take, threw away in trash, side effect constipa tion TR/RMA Not Available Not Available Not Available ondansetr on 4 mg disintegr ating tablet Place 1 tablet every 8 hours by translin gual route as needed. 09/19 completed not taking, per pt Not Available Not Available Not Available tobramyci n 0.3 %-dexamet hasone 0.1 [...] ONCE DAILY NEEDED. [facility] 02/06 completed Not Available Not Available Not Available melatonin half a lonzenge r QHS 2024 active per pt Not Available Not Available Not Avai lable calcium one daily active per pt Not Available Not Available No t Available multivita min 06/05 completed Not Available [...] Not Available Not Available Not Available Probiotic one daily active per pt Not Available Not Available No t Available Pazeo 0.7 % eye drops 09/26 completed Not Available Not Available Not Available Fluzone High-Dose 8656-1366 (PF) 180 mcg/0.5 mL intramusc ular syringe TO BE ADMINIST ERED BY PHARMACI ST FOR IMMUNIZA TION 03/27 completed Not Available Not Available Not Available Vitamin C (ascorbat e calcium) one daily active per pt Not Available Not Available No t Available Glucosami ne Chondroit in one daily active per pt Not Available Not Available No t Available Flublok Quad (PF) 180 mcg (45 mcg x 4)/0.5 mL IM syringe PHARMACY ADMINIST ERED 11/11 completed Not Available Not Available Not Available Vitals Date Recorded Body height Body mass index (BMI) Body weight Heart rate Systolic blood pressure Diastolic blood pressure Provider Name and Address Organization Details Last Updated DateTime 3 168.91 cm 22.3 kg/m2 65345.3 3 g 80 /min 108 mm[Hg] 68 mm[Hg] Radha [facility] 3 09:40:31 Date Recorded Body height Body mass index (BMI) Body weight Heart rate Systolic blood pressure Diastolic blood pressure Provider Name and Address Organization Details Last Updated DateTime 4 168.91 cm 22.9 kg/m2 52495.3 g 64 /min 122 mm[Hg] 64 mm[Hg] [facility] 4 10:00:50 Date Recorded Body height Body mass index (BMI) Body weight Heart rate Systolic blood pressure Diastolic blood pressure Provider Name and Address Organization Details Last Updated DateTime 4 168.91 cm 22.7 kg/m2 23152.7 1 g 68 /min 100 mm[Hg] 78 mm[Hg] Radha [facility] 4 09:34:30 Date Recorded Body height Body mass index (BMI) Body weight Heart rate Systolic blood pressure Diastolic blood pressure Provider Name and Address Organization Details Last Updated DateTime 4 168.91 cm 22.6 kg/m2 05240.1 2 g 74 /min 120 mm[Hg] 72 mm[Hg] Merissa Vila user, [facility] 4 10:33:59 Date Recorded Body height Body mass index (BMI) Body weight Heart rate Systolic blood pressure Diastolic blood pressure Provider Name and Address Organization Details Last Updated DateTime 5 168.91 cm 22.8 kg/m2 42689.1 1 g 82 /min 120 mm[Hg] 74 mm[Hg] Cassidy Fisher [facility] 5 15:25:06 Social History Question Answer Notes LastModified by Organizat ion Details LastModified Time Tobacco Smoking Status Former Smoker quit age 51 Ifrah Cifuentes CMA null, [facility] 05/18/2011 14:09:48 What Is Your Level Of Alcohol Consumption? Moderate 1-2 Per Day With Dinner Information not available 09/13/2015 Do You Wear A Helmet When Biking? Yes Information not available 09/01/2013 What Is Your Level Of Caffeine Consumption? Occasional 2 Cups Per Day [email or web address] Information not available 05/18/2011 What Type Of Diet Are You Following? REGULAR [id number] Information not available 08/03/2011 Which Illicit Or Recreational Drugs Have You Used? None Information not available 09/13/2015 Do You Or Have You Ever Used E-cigarettes Or Vape? Never Used Electronic Cigarettes Information not available 06/25/2020 What Is Your Occupation? Retired [employer] [email or web address] Information not available 05/18/2011 When Did You Quit Smoking? 16+yearssince lastcigarette Information not available 09/13/2015 How Many Days In The Past Year Have You Had A Heavy Drinking Consumption (4+ Female, 5+ Male)? 0 Information not available 09/13/2015 Live Alone Or With Others? With Others Information not available 08/03/2011 Does The Patient Have Difficulty Speaking Turkish? No Information not available 09/13/2015 Does The Patient Have Difficulty Reading Turkish? No Information not available 09/13/2015 Patient Has Health Care Proxy Signed And In Chart Yes Son Edwin Daughter Regi [email or web address] Information not available 09/26/2018 MOLST Form Signed And In Chart 09/13/2015 Information not available 09/13/2015 CCM Consent Discussion 12/29/2021 [email or web address] Information not available 12/30/2021 Marital Status Lux Muniz. 54 Yrs. Information not available 09/03/2014 Mosquito [...] ously record ed as Hypert ension ) [email or web address] Not available 09/13/2015 10:50:38 Sister Malignant [...] pneumococcal polysaccharide PPV23 1 completed Not Available [facility] 10/04/2019 02:14:54 Influenza, split virus, trivalent, preservative 1 completed Not Available [facility] 10/04/2019 02:18:30 Influenza, split virus, trivalent, preservative 2 completed Not Available [facility] 10/04/2019 02:18:37 Influenza, split virus, trivalent, PF 3 completed Not Available [facility] 10/04/2019 02:29:25 Tdap 0 completed Not Available [facility] 11/16/2022 12:25:58 influenza, unspecified formulation 4 completed Not Available [facility] 11/16/2022 12:25:58 Pneumococcal conjugate PCV 13 5 completed Not Available [facility] 11/16/2022 12:25:58 influenza, unspecified formulation 5 completed Not Available [facility] 11/16/2022 12:25:58 Influenza, high-dose, trivalent, PF 6 completed Not Available [facility] 11/16/2022 12:25:58 influenza, unspecified formulation 8 completed Not Available [facility] 11/16/2022 12:25:58 Influenza, high-dose, trivalent, PF 8 completed [facility] 02/07/2024 09:59:05 Td (adult), 2 Lf tetanus toxoid, preservative free, adsorbed 0 completed Angie Power MD [address] [place] [address], [address], [facility] 11/10/2019 14:50:04 Influenza, high-dose, trivalent, PF 9 [...] mcg/0.3 mL dose 2 completed Not Available [facility] 11/16/2022 12:25:58 Influenza, split virus, trivalent, PF 4 completed Cassidy Phillip null, [facility] 09/19/2024 15:49:32 COVID-19, mRNA, LNP-S, PF, 50 mcg/0.5 mL 4 completed Cassidy Phillip null, [facility] 09/19/2024 15:50:04 Past Encounters Encounter ID Performer Location Encounter Start Date Encounter Closed Date Diagnosis/Indication Diagnosis SNOMED-CT Code Diagnosis ICD10 Code [id number] [facility], OFFICE [address] [place] [address] [phone] 6 05/18/2011 13:54:14 05/18/2011 14:48:50 [id number] TRICE Jeremiah, OFFICE [address] [place] [address] [phone] 6 08/24/2011 09:44:32 08/24/2011 13:45:14 [id number] Radiology , [address] 85780-031 6 09/21/2011 09:40:41 09/26/2011 09:06:57 [id number] TRICE Jeremiah, OFFICE [address] [place] [address] [phone] 6 12/26/2011 14:18:41 12/26/2011 14:45:34 [id number] MD TRICE Villarreal [facility], OFFICE [address] [place] [address] 63416-074 6 08/26/2012 10:58:28 08/26/2012 12:05:49 [id number] AGUSTIN CARNES, OFFICE [address] [place] [address] 32197-606 6 06/04/2013 15:22:04 06/04/2013 16:21:59 Chest pain 42868051 Solitary n odule of lung 441902117 Lesion of liver 87021608 0 Influenza vaccine needed 1587352693 434 [id number] AGUSTIN CARNES, OFFICE [address] [place] [address] [phone] 6 07/03/2013 08:43:23 07/03/2013 09:45:19 Solitary nodule of lung 406070595 Lesion of liver 83018669 0 Chest pain 44325337 Increased frequency of urination 557326283 [id number] MD TRICE Villarreal [facility], OFFICE [address] [place] [address] 91552-362 6 09/01/2013 09:45:44 09/01/2013 10:55:13 Adult health examination 065123030 Counseling 714435312 Solitary n odule of lung 940501277 Hypothyroidism 47480954 [id number] Angie Power MD , [facility], OFFICE [address] [place] [address] 12825-593 6 12/02/2013 15:35:00 12/02/2013 16:35:40 Multiple nodules of lung 050958045 [id number] Jing Wade CMA , [facility], OFFICE [address] [place] [address] 26840-705 6 06/14/2014 09:21:41 06/14/2014 09:49:14 Cough 34971362 [id number] Jing Wade CMA , [facility], OFFICE [address] [place] [address] 50412-261 6 06/18/2014 08:13:51 06/18/2014 08:51:36 Cough 02388631 Pneumonia 706254432 [id number] Jing Wade CMA , [facility], OFFICE [address] [place] [address] 59393-710 6 06/26/2014 11:23:31 06/26/2014 12:34:50 External hemorrhoids 28746139 Pneumonia 640738878 [id number] Angie Power MD , [facility], OFFICE [address] [place] [address] [phone] 6 09/03/2014 09:45:35 09/03/2014 10:35:43 Adult health examination 682774741 Counseling 005582803 Hypothyroidism 49951542 Multiple n odules of lung 834581254 Osteopenia 353326960 [id number] Angie Power MD , [facility], OFFICE [address] [place] [address] 34684-215 6 09/13/2015 09:43:11 09/13/2015 11:05:35 Adult health examination 203185695 Z00.00 Counseling 747371469 Z71 .9 Active or passive immunization 380127401 Z23 Hypothyroidism 71275848 E03.9 [id number] Angie Power MD , [facility], OFFICE [address] [place] [address] 98773-177 6 09/30/2015 09:43:41 09/30/2015 10:43:32 Impacted cerumen 18930655 H61.21 [id number] Angie Power MD , [facility], OFFICE [address] [place] [address] [phone] 6 09/14/2016 13:56:34 09/14/2016 14:44:14 Hypothyroidism 82258710 E03.9 Adult heal th examination 850664518 Z00.00 Multiple n odules of lung 974754521 R91.8 Tear film insufficiency 88023867 H04.123 Osteopenia 880482494 M85 .80 [id number] Angie Power MD , [facility], OFFICE [address] [place] [address] 48357-494 6 09/24/2017 09:34:48 09/24/2017 10:21:50 Adult health examination 072357603 Z00.00 Counseling 885923751 Z71 .9 Hypothyroidism 35534668 E03.9 [id number] Petra Ornelas PA-C , [facility], OFFICE [address] [place] [address] [phone] 6 03/27/2018 13:55:32 03/27/2018 16:35:53 Infection of sebaceous cyst 469090591 L72.3 [id number] Angie Power MD , [facility], OFFICE [address] [place] [address] 17277-289 6 09/26/2018 08:22:55 09/26/2018 09:59:30 Adult health examination 280218195 Z00.00 Counseling 359970302 Z71 .9 Depression screening 171 812763 Z13.89 Hypothyroidism 08206851 E03.9 Osteopenia 867258447 M85 .80 Active or passive immunization 415570006 Z23 Dry eyes 655280529 H04.1 29 [id number] Krystal Esquivel LPN , [facility], OFFICE [address] [place] [address] [phone] 6 12/13/2018 16:04:43 12/16/2018 12:55:52 Epigastric pain 32174682 R10.13 Cough 58087296 R05 Elevated blood-pressure reading without diagnosis of hypertension 465415960 R03.0 [id number] Donna Monet PA-C , [facility], OFFICE [address] [place] [address] 24304-039 6 12/23/2018 09:13:08 12/23/2018 09:44:17 Epigastric pain 23459335 R10.13 Thrombocytosis 2459918 D 47.3 [id number] Donna Monet PA-C , [facility], OFFICE [address] [place] [address] 20510-949 6 01/02/2019 13:27:16 01/02/2019 13:59:35 Muscle strain 70628418 T14.8XXA Constipation 72755530 K5 9.00 [id number] MD TRICE Villarreal, [facility], OFFICE [address] [place] [address] [phone] 6 02/03/2019 10:14:42 02/03/2019 10:52:51 Abdominal pain 16646622 R10.9 Abdominal bloating 99610 9008 R14.0 [id number] Ann-Marie Rodríguez MD [facility], [address] 35976-057 6 04/30/2019 08:26:46 05/01/2019 06:40:29 Osteoporosis 14693938 M81.0 Vitamin D deficiency 347 73648 E55.9 Hypothyroidism 98963851 E03.9 [id number] MD TRICE Zazueta, [facility], OFFICE [address] [place] [address] 36204-055 6 05/26/2019 17:27:04 05/27/2019 15:23:17 Rib pain 471429525 R07.81 [id number] PALAK Montoya, [facility], OFFICE [address] [place] [address] 92306-483 6 07/18/2019 10:25:23 07/18/2019 10:59:11 Hypothyroidism 44442644 E03.9 Vaccine ad verse reaction 067916652 T50.Z95A [id number] MD TRICE Villarreal, [facility], OFFICE [address] [place] [address] [phone] 6 11/10/2019 14:03:23 11/10/2019 15:06:52 Adult health examination 769038666 Z00.00 Counseling 035192466 Z71 .9 Depression screening 171 728518 Z13.89 Screening for alcohol abuse 297159172 Z13.39 Hypothyroidism 49135796 E03.9 Active or passive immunization 179968692 Z23 [id number] Dedrick Gary PA-C , [facility], OFFICE [address] [place] [address] 83787-116 6 04/22/2020 08:51:35 04/23/2020 09:37:36 Allergic reaction to insect bite 825069691 T78.40XA Pruritic rash 39883567 L 28.2 [id number] Angie Power MD , [facility], OFFICE [address] [place] [address] 22646-516 6 06/25/2020 08:47:59 06/28/2020 11:12:32 Hypothyroidism 58612375 E03.9 Osteopenia 573953290 M85 .80 Pre-surger y evaluation 974789132 Z01.818 Bilateral cataracts 9572 2003 H26.9 [id number] Angie Power MD , [facility], OFFICE [address] [place] [address] 13178-785 6 07/30/2020 08:55:59 08/02/2020 17:12:54 Pain in right arm 543950524 M79.601 Pain of right thigh 3169 444717 62714 M79.961 [id number] Abigail Calderon, PT Physical Therapy, [address] 54905-279 6 08/04/2020 09:01:50 08/04/2020 10:53:03 Lumbar radiculopathy 653084190 M54.16 [id number] Angie Power MD , [facility], OFFICE [address] [place] [address] 73469-969 6 08/19/2020 14:30:36 08/20/2020 09:35:08 Pain in right knee 0849872717 80999 M25.561 Lumbar radiculopathy 128 486392 M54.16 Fracture o f distal end of radius 185247770 S52.501A Fracture o f ulnar styloid 464164706 S52.611A [id number] Abigail Calderon, PT Physical Therapy, [address] 92956-858 6 08/24/2020 08:40:19 08/24/2020 10:13:40 Knee pain 03653720 M25.695 [id number] Abigail Calderon, PT Physical Therapy, [address] 43600-384 6 09/21/2020 08:44:47 09/21/2020 09:47:17 Knee pain 62616864 M25.175 [id number] Angie Power MD , [facility], OFFICE [address] [place] [address] 19802-657 6 11/11/2020 09:44:53 11/12/2020 10:44:59 Adult health examination 338481166 Z00.00 Counseling 371128628 Z71 .9 Depression screening 171 769673 Z13.89 Screening for alcohol abuse 303959303 Z13.39 Advance di rective discussed with patient 198926331 Z71.89 Fracture o f distal end of radius 124413041 S52.501A Fracture o f ulnar styloid 246331848 S52.611A Hypothyroidism 52353262 E03.9 Atrophic vaginitis 63944 000 N95.2 Hypoglycemia 375943735 E 16.2 Osteoporosis 98776163 M8 1.0 [id number] PATRIC LYNN NP , [facility], OFFICE [address] [place] [address] 75430-615 6 12/29/2021 11:38:43 01/10/2022 08:38:21 Pre-surgery evaluation 773208639 Z01.757 [id number] Angie Power MD , [facility], OFFICE [address] [place] [address] 19477-263 6 01/31/2022 08:28:31 01/31/2022 09:25:34 Adult health examination 648216299 Z00.00 Counseling 462637758 Z71 .9 Depression screening 171 861651 Z13.31 Screening for alcohol abuse 348752346 Z13.39 Active or passive immunization 663522900 Z23 Hypothyroidism 26575315 E03.9 Osteoporosis 13580815 M8 1.0 [id number] PATRIC LYNN NP , [facility], OFFICE [address] [place] [address] 85233-754 6 09/01/2022 11:11:31 09/04/2022 12:31:14 Pre-surgery evaluation 006797876 Z01.818 Adult heal th examination 200877521 Z00.00 Vaginitis 00534202 N76.0 Impacted c erumen in right ear 0806344232 634135 H61.21 [id number] , [facility], OFFICE [address] [place] [address] 88124-263 6 09/07/2022 12:14:10 09/07/2022 12:52:27 Active or passive immunization 438580591 Z23 Vaginitis 66240747 N76.0 [id number] Angie Power MD , [facility], OFFICE [address] [place] [address] 21439-922 6 02/02/2023 08:26:35 02/02/2023 09:23:13 Adult health examination 839009212 Z00.00 Depression screening 171 140221 Z13.31 Screening for alcohol abuse 111524061 Z13.39 Hypothyroidism 60915830 E03.9 Osteoporosis 59960590 M8 1.0 Rosacea 111073524 L71.9 [id number] Angie Power MD , [facility], OFFICE [address] [place] [address] 51493-352 6 2023 09:29:59 2023 10:20:21 Active or passive immunization 809606401 Z23 Epigastric pain 36467537 R10.13 Snoring 36382396 R06.83 [id number] Angie Power MD , [facility], OFFICE [address] [place] [address] 61396-504 6 02/07/2024 09:39:58 02/07/2024 10:56:02 Adult health examination 291811503 Z00.00 Depression screening 171 170183 Z13.31 Screening for alcohol abuse 999581517 Z13.39 Hypothyroidism 16384699 E03.9 Obstructiv e sleep apnea syndrome 17613491 G47.33 Rosacea 449934955 L71.9 Osteopenia 196203865 M85 .80 [id number] Angie Power MD , [facility], OFF[address] [place] [address]-176 6 06/05/2024 09:04:16 06/05/2024 13:46:23 Active or passive immunization 275787113 Z23 Cervical radiculopathy 30882072 M54.12 [id number] Angie Power MD , [facility], OFFICE [address] [place] [address]-855 6 06/25/2024 10:23:38 06/25/2024 10:57:58 Active or passive immunization 226941662 Z23 Cervical radiculopathy 11116836 M54.12 Hypothyroidism 26656440 E03.9 Scalp itchy 784090875 L2 9.89 [id number] Angie Power MD , [facility], OFFICE [address] [place] [address]-391 6 09/19/2024 14:57:33 09/19/2024 22:06:39 Active or passive immunization 030495886 Z23 Bilateral inguinal hernia 32549751 K40.20 Constipation 64012832 K5 9.00 Drug-induced ileus 23930 7008 K56.7 Closed fra cture of shaft of right humerus 7354879879 3613947 S42.301D Health Concerns Section Related Observation LastModified by Organization Detai ls LastModified Time None Recorded Concern Status LastModified by Organization Details LastModified Time None Recorded Advance Directives Directive None Recorded Payers Encounter Date Sequence Insurance Name Policy Number Policy Herron Covered Member ID Herron Member ID Guarantor Name 2023 1 [place] [employer] Mary D Kostek [id number] Mary Kostek 2023 2 [place] [id number] Mary D Kostek [id number] Mary Kostek 02/07/2024 1 [place] [employer] Mary D Kostek [id number] Mary Kostek 02/07/2024 2 [place] [id number] Mary D Kostek [id number] Mary Kostek 06/05/2024 1 [place] [employer] Mary D Kostek [id number] Mary Kostek 06/05/2024 2 [place] [id number] Mary D Kostek [id number] Mary Kostek 06/25/2024 1 [place] [employer] Mary D Kostek [id number] Mary Kostek 06/25/2024 2 [place] [id number] Mary D Kostek [id number] Mary Kostek 09/19/2024 1 [place] [employer] Mary D Kostek [id number] Mary Kostek 09/19/2024 2 [place] [id number] Mary D Kostek [id number] Mary Kostek Notes Date Note Type Note Provider Name and Address Organization Details Recorded Time 08/23/20 23 text/htm l pt wants to [...] magnesiafather had stomach cancer Angie Power MD [address] [place] [address], [phone], [facility] 2023 20:42:04 02/07/20 24 text/htm l The provider and patient discussed the Chronic Care Management program, including the services provided, and any fees associated with them. anxiety from with worsening dementia Angie Power MD [address] [place] [address], [phone], [facility] 02/10/2024 11:12:00 02/07/20 24 text/htm l Risk [...] risk of skin cancer Angie Power MD [address] [place] [address], [phone], [facility] 02/10/2024 11:12:00 06/05/20 text/htm l sore left arm starting up [...] like tendonitis at night. Angie Power MD [address] [place] [address], [phone], [facility] 06/05/2024 11:03:28 06/25/20 text/htm l 06/25/24-pt wants to see endocrinologyhx [...] March 2024 : 2.57 Angie Power MD [address] [place] [address], [phone], [facility] 06/25/2024 10:55:12 09/19/19 text/htm l Patient informed and consents to use of AI assisted recording to improve documentation of visit.Word substitution may have occurred and may have gone unnoticed and uncorrected. pt here for post hospital follow up:Pt was admitted to [facility] 09/14/2024 D/C on 09/17/24. Dx- Ileus/Hernia. Ct scan abd/pelvis: 1. Left inguinal hernia containing a loop of proximal sigmoid colon. Mild upstream dilatation of colon and small bowel may indicate partial bowel obstruction. 2. Right inguinal hernia containing a small amount of fat and fluid. X ray abd: 1. Air-filled nondistended loops of bowel probably representing an ileus. EKG: Normal sinus rhythm Septal infarct , age undetermined Abnormal ECG Pt recently fracture rt shoulder and on opiates for pain management, pt advised to use opiates sparingly. NG placed w/ bowel rest. General Surgery recommended pt to take a scheduled Metoclopramide. The patient, with a history of osteoporosis and a recent humerus fracture, presents with ongoing constipation. She believes he had a partial bowel blockage even before the fracture, which was exacerbated by opioid pain medication. The patient reports minimal pain now, three weeks post-fracture, and only takes Tylenol or Advil as needed.The patient also reports a recent diagnosis of a B/L inguinal hernia, discovered during a CT scan prior to the arm fracture. She was initially concerned it might be a gynecological issue, but the CT scan confirmed it was a hernia.The patient also reports a recent hospital admission due to severe arm swelling, which he attributes to incorrect advice from a physician certified dental assistant to let his arm hang down. He is currently awaiting a follow-up appointment to determine if surgery is needed for the arm fracture. ResultsRADIOLOGYCT scan: left inguinal herniaX-ray: spiral fracture of the humerus (09/03/2024) Angie Power MD [address] [place] [address], [phone], [facility] 09/19/2024 22:06:38 OBGyn Episode No OBEpisode recorded.
--- OUTSIDE RECORDS SUMMARY | 2024-09-22 07:48 | XMS_ITS | Continuity of Care Document ---
Author Organization [facility], , [facility], OFFICE Address [address] [place] [address] Care Team Providers Care Rabbit Fancier Name Role Phone ANGIE PATEL Primary Care Provide r KIMMIE CANTRELL OTHER RONAN LANTIGUA OTHER ANN-MARIE MARMOLEJO [employer] [place] GOMSE Orthopedist Assessment No assessment recorded. Plan of Treatment Reminders Order Date Submit Date Provider Last Modified By Organization Details Last Modified Time Details Appointments LAB Follow-Up 2024 08:00A M [facility] Lab Not available Not available Not available Wellness Visit 30 2024 08:30A M Angie Power MD Not available Not available Not available Lab None recorded. Referral general surgeon referral - B/L inguinal hernia please wait until she is healed from her humeral fx 2024 025 [email or web address] Carmen Scott, [address], [place], [address], 09/20/2024 20:00:03 Procedures None recorded. Surgeries None recorded. Imaging None recorded. Medication Orders None recorded. Patient TargetsNo targets recorded. Patient Instructions Encounter Date Encounter Id Patient Instructions Last Modified By Organization Details Last Modified Time 09/19/2024 [id number] I am aware of th e inpatient facility discharge medications, the medication list above has been reconciled with those medications and reflects my understanding of an up to date medication list for this patient. [email or web address] Not available 09/19/2024 15:19:18 Reason for Referral General Surgeon Referral for Bilateral inguinal hernia B/L inguinal hernia please wait until she is healed from her humeral fx Referring Physician: Angie Power, Family Medicine, Encounter Date: 09/19/2024 Problems Name Problem SNOMED Code Status Onset Date Resolution Date Notes Provider Name and Address Organization Details Recorded Time Anemia 875192232 Active [place], [address], [facility] 5 10:38:47 Common cold 01421939 Completed 08/06/2013 Angie Power MD [address] [place] [address] [place], [address], [facility] 5 10:38:47 Hypothyro idism 87764533 Active Angie Power MD [address] [place] [address] [place], [address], [facility] 5 11:03:03 Solitary nodule of lung 192383557 Active Angie Power MD [address] [place], [place] [address]C[place], [address], [facility] 5 10:38:47 Chest pain 49126431 Completed 08/06/2013 Angie Power MD [address] [place] [address] [place], [address], [facility] 5 10:38:47 Multiple nodules of lung 348473620 Active Angie Power MD [address] [place], [place] [address], [address], [facility] 5 10:38:47 Osteopeni a 807536901 Active Angie Power MD [address] [place], [place] [address]C[place], [address], [facility] 5 10:38:47 Tear film insuffici ency 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 Active 2015 Angie Power MD [address] [place] [address] [place], [address], [facility] 6 04:40:13 Osteoporo sis 91515075 Active 2021 Angie Power MD [address] [place], [place] [address], [address], [facility] 2 20:04:58 Allie 554761220 Active 2022 Angie Power MD [address] [place], [place] [address], [address], [facility] 3 22:24:21 Obstructi ve sleep apnea syndrome 43662199 Active 2023 Angie Power MD [address] [place], [place] [address], [address], [facility] 4 10:27:19 Closed fracture of right humerus 531344388400 [address] Active 2023 Jacklyn Mohr RN null, [facility] 4 16:50:48 Intestina l obstructi on 73514482 Active 2024 [facility] D/[facility] Kelli Craft null, [facility] 5 11:07:48 Problem Notes None recorded. Procedures Surgical History Date Name Laterality Status Provider Name and Address Organization Details Recorded Time 09/19/19 25 Post hospital/SNF follow-up/Transiti onal Care completed Cassidy Fisher [facility] 09/19/2024 15:19:18 02/07/20 24 Medicare Wellness Visit completed Radha Larry MA [facility] 02/07/2024 08:11:21 08/23/20 23 Iberia Sleepiness Scale completed Angie Power MD [address] [place] [address] [place], [address], [facility] 2023 10:16:31 02/03/20 23 Medicare Wellness Visit completed Radha Larry MA [facility] 02/02/2023 07:53:38 02/01/20 22 Medicare Wellness Visit completed Radha Larry MA [facility] 01/31/2022 08:02:59 02/01/20 22 Alcohol use screening completed Radha Larry MA [facility] 01/31/2022 08:02:59 02/01/20 22 Cardiovascular disease risk reduction counseling completed Radha Larry MA [facility] 01/31/2022 08:02:59 02/01/20 22 Medicare Risk for Falls Screen completed Radha Larry MA [facility] 01/31/2022 08:44:32 01/07/20 22 Other (specify) completed Petra Ornelas PA-C [address] [place], [address], [facility] 04/24/2022 13:58:39 11/11/19 21 Medicare Wellness Visit completed Melody Macias MA [facility] 11/11/2020 09:45:15 11/11/19 21 prevention-cardiov ascular risk reduction counseling completed Melody Macias MA [facility] 11/11/2020 09:45:15 11/11/19 21 prevention-annual alcohol misuse screening completed Melody Macias MA [facility] 11/11/2020 09:45:15 11/11/19 21 Advanced Care Planning completed Melody Macias MA [facility] 11/11/2020 09:45:16 09/21/19 21 87712: Therapeutic Exercise completed Abigail Calderon, PT [address] [place], [address], [facility] 09/21/2020 09:35:01 08/24/20 20 88925: Therapeutic Exercise completed Abigail Calderon, PT [address] [place], [address], [facility] 08/24/2020 09:54:03 08/19/20 20 Post hospital/SNF follow-up/Transiti onal Care completed Brissa Schneider [facility] 08/19/2020 14:08:49 08/04/20 20 Physical Activity Counselling completed Abigail Calderon, PT [address] [place], [address], [facility] 08/04/2020 10:16:50 08/04/20 20 55596: PT Eval Low Complexity completed Abigail Calderon, PT [address] [place], [address], [facility] 08/04/2020 10:16:53 05/12/20 20 Colonoscopy completed Angie Power MD [address] [place] [address], [address], [facility] 11/11/2020 20:30:20 11/10/19 20 Medicare Wellness Visit completed Camden Valerio [facility] 11/10/2019 14:06:43 11/10/19 20 prevention-cardiov ascular risk reduction counseling completed Camden Valerio, [facility] 11/10/2019 14:06:43 11/10/19 20 prevention-annual alcohol misuse screening completed Camden Valerio [facility] 11/10/2019 14:06:43 12/14/19 19 POC Strep Testing completed Krystal Esquivel LPN [facility] 12/16/2018 12:21:04 09/26/19 19 Medicare Wellness Visit completed Jing Wade [facility] 09/26/2018 08:27:57 09/26/19 19 Cerumen Removal - Irrigation/Lavage completed Jing Wade [facility] 09/26/2018 09:39:33 09/26/19 19 Advanced Care Planning completed Angie Power MD [address] [place] [address], [address], [facility] 09/26/2018 09:24:45 09/24/19 18 Medicare Wellness Visit completed Jing Wade [facility] 09/24/2017 09:47:16 09/24/19 18 Advanced Care Planning completed Jing Wade [facility] 09/24/2017 09:39:01 09/30/19 16 Cerumen Removal completed Angie Power MD [address] [place] [address], [address], [facility] 09/30/2015 20:25:35 09/13/20 15 Medicare Wellness Visit completed Jing Wade [facility] 09/13/2015 09:53:00 09/03/20 14 Medicare Wellness Visit completed Jing Wade [facility] 09/03/2014 09:54:57 09/01/20 13 Medicare Wellness Visit completed Elise Hart MA [facility] 09/01/2013 09:56:59 08/26/20 12 Medicare Wellness Visit completed Jing Wade [facility] 08/26/2012 11:30:58 08/24/20 11 Medicare Wellness Visit completed Jing Wade [facility] 08/24/2011 10:05:34 01/21/20 10 Colonoscopy completed Angie Power MD [address] [place] [address], [address], [facility] 09/07/2013 16:13:37 Tubal Ligation completed Not Available [facility] 08/03/2011 06:06:16 Imaging Results None recorded. Procedure [...] AMOUNT EXTERNAL LY TWICE WEEKLY 09/19 completed it systems administrator - [facility] prescrib er-has not been using 06/25/24 KR 024- not taking, per pt TR/RMA Not [...] ONCE DAILY NEEDED. OK TO LEAVE IN OVERNIGH T AND WASH OUT IN THE MORNING 02/06 completed Not Available Not Available Not Available melatonin half a lonzenge r QHS 01/03/ 2025 active per pt Not Available Not Available [...] Available Not Available Not Available Fluzone High-Dose 7660-6462 (PF) 180 mcg/0.5 mL intramusc ular syringe TO BE ADMINIST ERED BY [facility] FOR IMMUNIZA TION 03/27 completed Not [...] Updated DateTime 5 168.91 cm 22.8 kg/m2 35282.1 1 g 82 /min 120 mm[Hg] 74 mm[Hg] Cassidy Fisher [facility] 5 15:25:06 Social History Question Answer Notes LastModified by Organizat ion Details LastModified Time Tobacco Smoking Status Former Smoker quit age 51 CLAUDETTE Rosenberg, [facility] 05/18/2011 14:09:48 What Is Your Level Of Alcohol Consumption? Moderate 1-2 Per Day With Dinner [email or web address] Information not available 09/13/2015 Do You Wear A Helmet When Biking? Yes Information not available 09/01/2013 What Is Your Level Of Caffeine Consumption? Occasional 2 Cups Per Day [email or web address] Information not available 05/18/2011 What Type Of Diet Are You Following? REGULAR [id number] Information not available 08/03/2011 Which Illicit Or Recreational Drugs Have You Used? None Information not available 09/13/2015 Do You Or Have You Ever Used E-cigarettes Or Vape? Never Used Electronic Cigarettes Information not available 06/25/2020 What Is Your Occupation? Retired [employer] [email or web address] Information not available 05/18/2011 When Did You Quit Smoking? 16+yearssince lastcigarette Information not available 09/13/2015 How Many Days In The Past Year Have You Had A Heavy Drinking Consumption (4+ Female, 5+ Male)? 0 Information not available 09/13/2015 Live Alone Or With Others? With Others [id number] Information not available 08/03/2011 Does The Patient Have Difficulty Speaking Citizen Of [place]? No Information not available 09/13/2015 Does The Patient Have Difficulty Reading Citizen Of [place]? No Information not available 09/13/2015 Patient Has Health Care Proxy Signed And In Chart Yes Son Edwin Daughter Regi [email or web address] Information not available 09/26/2018 MOLST Form Signed And In Chart 09/13/2015 Information not available 09/13/2015 CCM Consent Discussion 12/29/2021 [email or web address] Information not available 12/30/2021 Marital Status Lux - M. 54 Yrs. Information not available 09/03/2014 [...] available 09/01/2013 Are You Sexually Active? Yes [email or web address] Information not available 09/13/2015 Smoke Alarm In [...] Vaccine Type Date Status Note Provider Nam rhiannon and Address Organization Details Recorded Time pneumococcal polysaccharide PPV23 1 completed Not Available [facility] 10/04/2019 02:14:54 Influenza, split virus, trivalent, preservative 1 completed Not Available [facility] 10/04/2019 02:18:30 Influenza, split virus, trivalent, preservative 2 completed Not Available [facility] 10/04/2019 02:18:37 Influenza, split virus, trivalent, PF 3 completed Not Available [facility] 10/04/2019 02:29:25 Tdap 0 completed Not Available [facility] 11/16/2022 12:25:58 influenza, unspecified formulation 4 completed Not Available [facility] 11/16/2022 12:25:58 Pneumococcal conjugate PCV 13 5 completed Not Available [facility] 11/16/2022 12:25:58 influenza, unspecified formulation 5 completed Not Available [facility] 11/16/2022 12:25:58 Influenza, high-dose, trivalent, PF 6 completed Not Available [facility] 11/16/2022 12:25:58 influenza, unspecified formulation 8 completed Not Available [facility] 11/16/2022 12:25:58 Influenza, high-dose, trivalent, PF 8 completed DANIEL Mccullough, [facility] 02/07/2024 09:59:05 Td (adult), 2 Lf tetanus toxoid, preservative free, adsorbed 0 completed Angie Power MD [address] [place] [address], [address], [facility] 11/10/2019 14:50:04 Influenza, high-dose, trivalent, PF 9 completed Not Available [facility] 11/16/2022 12:25:58 pneumococcal polysaccharide PPV23 9 completed Not Available [facility] 11/16/2022 12:25:58 Influenza, split virus, quadrivalent, preservative 9 completed Not Available [facility] 11/16/2022 12:25:57 pneumococcal polysaccharide PPV23 9 completed Not Available [facility] 11/16/2022 12:25:58 Influenza, split virus, quadrivalent, preservative 0 completed Not Available [facility] 11/16/2022 12:25:57 COVID-19, mRNA, LNP-S, PF, 100 mcg/0.5mL dose or 50 mcg/0.25mL dose 1 completed Not Available [facility] 11/16/2022 12:25:57 COVID-19, mRNA, LNP-S, PF, 100 mcg/0.5mL dose or 50 mcg/0.25mL dose 1 completed Not Available [facility] 11/16/2022 12:25:57 COVID-19, mRNA, LNP-S, PF, 100 mcg/0.5mL dose or 50 mcg/0.25mL dose 1 completed Not Available [facility] 11/16/2022 12:25:58 COVID-19, mRNA, LNP-S, PF, 100 mcg/0.5mL dose or 50 mcg/0.25mL dose 2 completed Not Available [facility] 11/16/2022 12:25:57 COVID-19, mRNA, LNP-S, PF, 30 mcg/0.3 mL dose 2 completed Not Available [facility] 11/16/2022 12:25:58 Influenza, split virus, trivalent, PF 4 [address]lee [facility] 09/19/2024 15:49:32 COVID-19, mRNA, LNP-S, PF, 50 mcg/0.5 mL 4 completed Cassidy Phillip carlee, [facility] 09/19/2024 15:50:04 Past Encounters Encounter ID Performer Location Encounter Start Date Encounter Closed Date Diagnosis/Indication Diagnosis SNOMED-CT Code Diagnosis ICD10 Code [id number] Angie Power MD , [facility], OFFICE [address] [place] [address] 09/19/2024 14:57:33 09/19/2024 22:06:39 Active or passive immunization 324310473 Z23 Bilateral inguinal hernia 04050954 K40.20 Constipation 41897235 K5 9.00 Drug-induced ileus 53007 7008 K56.7 Closed fra cture of shaft of right humerus 2920779560 2575160 S42.301D Health Concerns Section Related Observation LastModified by Organization Detai ls LastModified Time None Recorded Concern Status LastModified by Organization Details LastModified Time None Recorded Payers Encounter Date Sequence Insurance Name Policy Number Policy Herron Covered Member ID Herron Member ID Guarantor Name 09/19/2024 1 [place] [employer] Mary Ray [id number] Mary Ray 09/19/2024 2 [place] [id number] Mary Ray [id number] Mary Ray Notes Date Note Type Note Provider Name and Address Organization Details Recorded Time 09/19/2024 text/html Patient informed and consents to use of AI assisted recording to improve documentation of visit.Word substitution may have occurred and may have gone unnoticed and uncorrected. pt here for post hospital follow up:Pt was admitted to [facility] 09/14/2024 D/C on 09/17/24. Dx- Ileus/Hernia. Ct [...] attributes to incorrect advice from a physician billing and accounting staff assistant to let his arm hang down. He is currently awaiting a follow-up appointment to determine if surgery is needed for the arm fracture. ResultsRADIOLOGYCT scan: left inguinal herniaX-ray: spiral fracture of the humerus (09/03/2024) Angie Power MD [address] [place] [address], [address], [facility] 09/19/2024 22:06:38 OBGyn Episode No OBEpisode recorded.
--- OUTSIDE RECORDS SUMMARY | 2024-09-22 07:48 | XMS_ITS | Patient Health Record ---
Author Organization [facility] Address [address] [place] [address] Care Team Providers Care Risk Prevention Engineer Name Role Phone Elia Wilkins MD, [facility] Primary Care Provi ricardo Unavailable Esvin Quang Unavailable [phone] Allergies No Known Allergies Reason For Referral [...] W/U Status Risk Notes Problem Tinea unguium (864167661) Tinea unguium (B35.1) Active confirmed Topical treatment since Plan Of Treatment Pending Test Test Name Order Date [id number] NAIL, 6 OR MORE 12/14/2020 Insurance Providers Payer Name Payer Address Payer Phone Subscriber Number Group Number Insured Name Patient Relationship to Insured Coverage Start Date Coverage End Date Medicare National [facility] [employer] [address] [place] [address] [id number] Mary Ray Self - patient is the insured [employer] [address] [place] [address] [phone] [id number] [employer] Mary Self - patient is the insured Medical (General) History Medical History History ICD Code Anemia Arthritis Back,Hip,and Knee pain Broken bones Diverticulosis Hiatal hernia chronic sinusitis Thyroid disorder Measles Mumps Joint implants/screws Cataracts Osteoporosis thyroid Chicken pox Surgical History Surgery Date(Month/Year) D&C 1965 Right great toe - Osmin implant 2004
== END 2024-09-22 07:45 | disposition home or self-care (01) ==
LOC: HO.HOSX 07:44
DX: S42.301A Unspecified fracture of shaft of humerus, right arm, initial encounter for closed fracture (principal)
CPT/HCPCS: 73060; 99212

== ENCOUNTER 2024-09-22 08:30 | Outpatient (AMB) | payer MEDICARE, SELFPAY ==
--- NOTE | 2024-09-22 08:40 | MHC.OFFVIS ---
Vital Signs 09/22/24 08:43 Height 5 ft 7 in Weight 140 lb BMI 21.9 Handedness Ambidextrous Intake Visit Reasons: OV: fx of RT humeral shaft DOI: 08/28/24 Intake Note: Mary is a 79 year old ambidextrous female who presents today for a follow up visit for her fracture of right humeral shaft, s/p trip and fall DOI: 08/28/24. Patient reports she feels better. She expresses no pain when she is at rest, pain with movement at fracture area. Denies numbness and tingling. She has been trying to allow her arm to hang down while she is home but has not been doing it in public places yet. Allergies No Known Allergies Allergy (Verified 09/22/24 08:43) HPI HPI OV: fx of RT humeral shaft DOI: 08/28/24: Details: Patient is a 79-year-old female presents to the office today for follow-up evaluation of right humeral shaft fracture, date of injury 08/28/2024. Today, the patient reports that she is feeling much better, and then the pain she experiences at baseline is very minimal, only with certain motions. The patient reports that she was admitted to the hospital until for an ileus, but experience no acute complications with her right humeral shaft fracture. Patient states she has been trying to work on gentle range of motion of her right elbow, as she is concerned that her right elbow we will get stiff. Patient states that she has been allowing the arm to hang down while and relaxing, but states she does still wear the sling in public. Denies any numbness or tingling in the right upper extremity. No other acute complaints or concerns at this time. [facility] Medical History Hypothyroidism Fracture of humeral shaft, right, closed Social History Alcohol intake: current Alcohol intake frequency: holidays/special occasions only Alcohol type: wine Patient Tobacco Use Status: Former Tobacco user Current occupational status: retired Review of Systems Const All systems reviewed & are unremarkable except as noted in HPI and below Physical Exam Vital Signs: BMI result Body Mass Index 21.9 Extrem Other: On inspection, there is noted to be significant edema at the level of the proximal arm at the level of the fracture There is also noted to be ecchymosis at the level of the fracture, particularly on the underside of the right proximal arm There is also noted to be a visible deformity at the level of the fracture Patient reports very mild tenderness to palpation about the fracture site Patient was unable to make a closed fist with the right hand, but states that this is her baseline as she has been unable to make a closed fist with the right hand since in old wrist fracture injury Patient reports normal sensation to the tips of all digits of the right hand No evidence of the radial nerve palsy Capillary refill brisk Results Reviewed Results Reviewed: X-rays obtained in the office today and independently reviewed by me, Christopher Argueta PA-C, demonstrate displaced spiral fracture of the right humeral shaft with very similar clinical alignment from previous x-rays Assessment & Plan Assessment & Plan (1) Fracture of humeral shaft, right, closed: Code(s): S42.301A - Unspecified fracture of shaft of humerus, right arm, initial encounter for closed fracture Category: Medical Plan 1. Displaced spiral fracture of right humeral shaft Date of injury 08/28/2024 Patient is educated about this injury Patient is educated about the typical treatment course At this time, patient is educated that she should continue to wear the thermal molded proximal humerus brace Patient is also advised that she should continue wearing the sling with daytime activities and as needed for pain, but can remove the sling while at rest and allow the arm to hang down Patient is advised that she should avoid any active range of motion of the right arm away from the body, but that she can begin with gentle range of motion of the left hand, wrist, as well as slight and gentle active range of motion with flexion and extension of the right elbow to prevent stiffness Patient was amenable to this plan Patient will follow-up in 3-4 weeks with repeat x-rays with me for reassessment, sooner with any acute concerns Orders: Orders XR humerus RT Today S42.301A - Unspecified fracture of shaft of humerus, right arm, initial encounter for closed fracture Coding Level of Care Code Global (33758) Diagnoses Fracture of humeral shaft, right, closed S42.301A
[2024-09-22 08:43] VITALS: BMI 21.9
--- OUTSIDE RECORDS SUMMARY | 2024-09-22 08:49 | XMS_ITS | Data Portability ---
Author Organization [facility] Office Address [address], [address] [place] [address] Care Team Providers Care Horticultural Therapist Name Role Phone KYA PATEL Primary Care [...] x per week 6-8 weeks 2022 023 [email or web address] Not available 12:38:05 Procedures None recorded. Surgeries orthopaedic surgery (SURG) 2021 022 [email or web address] [facility], [address] [place], [address], 08:44:07 Imaging None recorded. Medication Orders None recorded. Patient TargetsNo targets recorded. Patient Instructions Encounter Date Encounter Id Patient Instructions Last Modified By Organization Details Last Modified Time 04/13/2022 [id number] The findings, diagnosis, and options are discussed [...] or questions. Not available 04/13/2022 13:54:25 07/17/2022 [id number] The findings, diagnosis, and options are discussed [...] or questions. Not available 07/17/2022 22:36:43 09/21/2022 [id number] Patient doing we ll s/p R wrist [...] plan. SHEILA Not available 09/21/2022 13:09:44 11/16/2022 [id number] Patient doing we ll s/p R wrist [...] views minim um Fin al Report EXAM#: [id number] PROCED URE: DXR 0068 XR HAND [...] JACKIE Vasquez On: Jul 17 2022 2:33P [email or web address] [facility] [address] [facility], [place], [address], 07/17/2022 15:40:11 07/17/20 22 07/17/2022 XR, hand, 3 or more view No observ ation record ed. [email or web address] Not Available 2021 15:42:43 Result Notes None recorded. Procedures Surgical History Date Name Laterality Status Provider Name and Address Organization Details Recorded Time 2 Orthopaedic Surgery completed Pat Shields [facility] 09/21/2022 12:47:37 2 Orthopaedic Surgery completed Cha Adhikari [facility] 01/16/2022 13:54:53 2 Cortisone Injection(s) completed PARIS GOMES MD [address] [place] [address], [phone], [facility] 09/22/2021 21:06:36 1 Orthopaedic Surgery completed Cha Blakenal [facility] 07/28/2021 13:07:14 Orthopaedic Surgery completed [facility] Onofre [facility] 07/28/2021 13:09:37 Imaging Results Imaging Date Name Status LastModified by Organiz ation Details LastModified Time 07/17/2022 xr hand right 3 views minimum completed [email or web address] [facility] [address], [place], [address], 07/17/2022 15:40:11 07/17/2022 XR, hand, 3 or [...] Updated DateTime 02/16/2022 170.18 cm 22.7 kg/m2 57579.89 g Gabriel Montana [facility] 02/16/2022 13:23:34 Date Recorded Body height Body mass index (BMI) Body weight Provider Name and Address Organization Details Last Updated DateTime 04/13/2022 170.18 cm 22.7 kg/m2 08364.89 g Joya Nunn [facility] 04/13/2022 13:08:56 Date Recorded Body height Provider Name an d Address Organization Details Last Updated DateTime 07/17/2022 170.18 cm Cristian Schneider [facility] 07/17/2022 13:10:50 Date Recorded Body height Provider Name an d Address Organization Details Last Updated DateTime 09/21/2022 170.18 cm Pat Shields [facility] 09/21/2022 12:47:02 Date Recorded Body height Provider Name an d Address Organization Details Last Updated DateTime 11/16/2022 170.18 cm Courtney Donovan [facility] 11/16/2022 13:04:25 Social History Question Answer Notes LastModified by Organizat ion Details LastModified Time Tobacco Smoking Status Former Smoker Cha Adhikari [facility] 07/28/2021 13:07:11 What Is Your Level Of Alcohol Consumption? Moderate Information not available 07/28/2021 What Is Your Level Of Caffeine Consumption? Moderate Information not available 07/28/2021 Do You Or Have You Ever Used E-cigarettes Or Vape? 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 Obstetrics History GPAL:G 0 P 0 0 0 0 Immunizations Vaccine Type Date Status Note Provider Nam e and Address Organization Details Recorded Time COVID-19, mRNA, LNP-S, PF, 100 mcg/0.5mL dose or 50 mcg/0.25mL dose 1 [facility] 13:08:08 COVID-19, mRNA, LNP-S, PF, 100 mcg/0.5mL dose or 50 mcg/0.25mL dose 1 [facility] 07/28/2021 13:08:15 COVID-19, mRNA, LNP-S, PF, 100 mcg/0.5mL dose or 50 mcg/0.25mL dose 1 [facility] 09/22/2021 11:40:58 Influenza, split virus, quadrivalent, preservative 1 completed [facility] 09/22/2021 11:41:12 Past Encounters Encounter ID Performer Location Encounter Start Date Encounter Closed Date Diagnosis/Indication Diagnosis SNOMED-CT Code Diagnosis ICD10 Code [id number] PARIS GOMES MD [facility] [address] [place], [place] [address] [address] 07/28/2021 12:27:50 07/28/2021 13:49:27 Closed fracture of distal end of right radius 9128930975 2017374 S52.501P Stiffness of joint of right hand 2449969874 07288 M25.641 Contractur e of joint of right wrist 5723275441 05358 M24.531 [id number] PARIS GOMES MD [facility] [address] [place], [place] [address] [address] 09/22/2021 11:13:15 09/22/2021 12:12:26 Contracture of joint of right wrist 9987456893 54463 M24.531 Closed fra cture of distal end of right radius 1413169164 1990321 S52.501P Stiffness of joint of right hand 3149951282 04282 M25.641 [id number] PARIS GOMES MD [facility] [address] [place], [place] [address] [address] 11/03/2021 10:49:19 11/03/2021 13:54:42 Contracture of joint of right wrist 9314234221 97903 M24.531 Closed fra cture of distal end of right radius 6828374385 9310297 S52.501P Stiffness of joint of right hand 5591013123 84939 M25.641 [id number] Mayela Bowen [address] [address] 12/20/2021 09:31:21 12/20/2021 09:48:46 Contracture of joint of right wrist 3128144851 84820 M24.531 Closed fra cture of distal end of right radius 1347967734 6796348 S52.501P Stiffness of joint of right hand 0139954664 66752 M25.641 [id number] PARIS GOMES MD [facility] [address] [facility] [place] [address] 01/16/2022 13:11:58 01/16/2022 14:21:09 Contracture of joint of right wrist 3787617819 48532 M24.531 [id number] PARIS GOMES MD [facility] [address] [place] [address] 04/13/2022 13:04:23 04/13/2022 13:35:34 Contracture of joint of right wrist 7827413374 16337 M24.531 Closed fra cture of distal end of right radius 2459574633 3067983 S52.501P Stiffness of joint of right hand 3525419801 45263 M25.641 [id number] Mayela Bowen [facility] [address] [place] [address] 07/17/2022 13:01:17 07/17/2022 14:45:46 Contracture of joint of right wrist 5216100189 66261 M24.531 Stiffness of joint of right hand 5129228143 79279 M25.641 Closed fra cture of distal end of right radius 1212729303 2716078 S52.501P Adhesion o f tendon of hand 227692605 M67.331 [id number] PARIS GOMES MD [facility] [address] [place] [address] 09/21/2022 12:41:10 09/21/2022 13:11:00 Contracture of joint of right wrist 1373961469 90942 M24.531 Stiffness of joint of right hand 5453862995 13708 M25.641 Closed fra cture of distal end of right radius 6965843694 9005900 S52.501P [id number] PARIS GOMES MD [facility] [address] [employer] [place] [address] 11/16/2022 13:03:00 11/16/2022 13:25:54 Contracture of joint of right wrist 6108304406 14567 M24.531 Stiffness of joint of right hand 3175446958 79011 M25.641 Closed fra cture of distal end of right radius 6747750516 0574076 S52.501P Health Concerns Section Related Observation LastModified by Organization Detai ls LastModified Time None Recorded Concern Status LastModified by Organization Details LastModified Time None Recorded Advance Directives Directive None Recorded Payers Encounter Date Sequence Insurance Name Policy Number Policy Herron Covered Member ID Herron Member ID Guarantor Name 04/13/2022 1 [place] [employer] Mary D Kostek [id number] Mary Kostek 04/13/2022 2 [place] [id number] Mary D Kostek [id number] Mary Kostek 07/17/2022 1 [place] Mary D Kostek [id number] Mary Kostek 07/17/2022 2 [place] [id number] Mary D Kostek [id number] Mary Kostek 09/21/2022 1 [place] Mary D Kostek [id number] Mary Kostek 09/21/2022 2 [place] [id number] Mary D Kostek [id number] Mary Kostek 11/16/2022 1 [place] Mary D Kostek [id number] Mary Kostek 11/16/2022 2 [place] [id number] Mary D Kostek [id number] Mary Kostek Notes Date Note Type Note Provider Name and Address Organization Details Recorded Time 04/13/2022 text/html The patient returns for evaluation s/p wrist arthroscopy, release of wrist flexion contracture & hardware removal. .She has been improving since last visit with therapy and time. No new paresthesias. No interval medical problems are noted. She is again with her . PARIS GOMES MD [address] [place] [address], [phone], [facility] 04/13/2022 13:54:27 07/17/2022 text/html The patient returns for evaluation s/p wrist arthroscopy, release of wrist flexion contracture & hardware removal. .She has been plateaued since last visit Following surgery she attended therapy and used a dynasplint. No new paresthesias. No interval medical problems are noted. She is again with her . PARIS GOMES MD [address] [place] [address], [address], [facility] 07/17/2022 22:36:48 09/21/2022 text/html Patient is s/p R wrist extensor tenolysis, R RF MP joint contracture release, R SF MP joint contracture release, DOS 09/15/22. She has been doing very well at home. Denies any pain. Has been in a splint. PARIS GOMES MD [address] [place] [address], [phone], [facility] 09/21/2022 13:09:47 [...] flexion posture to wrist. PARIS GOMES MD [address] [place] [address], [address], [facility] 11/16/2022 13:30:51 OBGyn Episode No OBEpisode recorded.
--- OUTSIDE RECORDS SUMMARY | 2024-09-22 08:50 | XMS_ITS | Continuity of Care Document ---
Author Organization [facility], , [facility], OFFICE Address [address] [place] [address] Care Team Providers Care Wash Driller Name Role Phone ANGIE PATEL Primary Care Provide r KIMMIE CANTRELL OTHER RONAN LANTIGUA OTHER ANN-MARIE MARMOLEJO Healthcare Analyst PARIS GOMES Orthopedist Assessment No assessment recorded. Plan of Treatment Reminders Order Date Submit Date Provider Last Modified By Organization Details Last Modified Time Details Appointments LAB Follow-Up 2024 08:00A M [facility] Lab Not available Not available Not available Wellness Visit 30 2024 08:30A M Angie Power MD Not available Not available Not available Lab None recorded. Referral physical therapist referral - neck pain pls eval and tx 2023 [email or web address] [facility], [address], [place], [address], 06/25/2024 12:46:07 esthetic dermatologist & immunolog ist referral - persisten t itchy scalp x 4-5 yrs 2023 [email or web address], [address] [facility], [place], [address], 06/25/2024 10:59:10 endocrino logy referral - hypothyro idism with a myriad of symptoms, pls review HPI 2023 [email or web address] Arroyo MD, [address], [place], [address], 08/22/2024 16:36:53 Procedures None recorded. Surgeries None recorded. Imaging None recorded. Medication Orders None recorded. Patient TargetsNo targets recorded. Patient InstructionsNo instructions recorded. Reason for Referral Physical Therapist Referral for Cervical radiculopathy neck pain pls eval and tx Referring Physician: Angie Power, [facility], Encounter Date: 06/25/2024 Endocrinology Referral for H ypothyroidism hypothyroidism with a myriad of symptoms, pls review HPI Referring Physician: Angie Power, [facility], Encounter Date: 06/25/2024 Community Health Specialist & Deli Cutter Slicer Ref erral for Scalp itchy persistent itchy scalp x 4-5 yrs Referring Physician: Angie Power, [facility], Encounter Date: 06/25/2024 Results Created Date Observation [...] spasm. Readin g Physic scott: Mina Olvera [facility] (Imaging) [address], [place], [address], 06/08/2024 14:08:59 Result Notes None recorded. Problems Name Problem SNOMED Code Status Onset Date Resolution Date Notes Provider Name and Address Organization Details Recorded Time Anemia 056680561 Active MD Emma Vill[place], [address], [facility] 5 10:38:47 Common cold 69293439 Completed 08/06/2013 Angie Power MD [address] [place] [address] [place], [address], [facility] 5 10:38:47 Hypothyro idism 41485162 Active Angie Power MD [address] [place] [address] [place], [address], [facility] 5 11:03:03 Solitary nodule of lung 209239982 Active Angie Power MD [address] [place] [address] [place], [address], [facility] 5 10:38:47 Chest pain 02926074 Completed 08/06/2013 Angie Power MD [address] [place] [address] [place], [address], [facility] 5 10:38:47 Multiple nodules of lung 423878897 Active Angie Power MD [address] [place] [address] [place], [address], [facility] 5 10:38:47 Osteopeni a 309132191 Active Angie Power MD [address] [place] [address] [place], [address], [facility] 5 10:38:47 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 Angie Power MD [address] [place] [address] [place], [address], [facility] 6 04:40:13 Osteoporo sis 99495430 Active 2021 MD Emma Villar[place], [address], [facility] 2 20:04:58 Rosarajindera 640573362 Active 2022 Angie Power MD [address] [place] [address] [place], [address], [facility] 3 22:24:21 Obstructi ve sleep apnea syndrome 32743585 Active 2023 Angie Power MD [address] [place] [address] [place], [address], [facility] 4 10:27:19 Closed fracture of right humerus 514211413545 43017 Active 2023 Jacklyn oMhr RN [facility], [facility] 4 16:50:48 Intestina l obstructi on 16556288 Active 2024 [facility] Kelli Craft null, [facility] 5 11:07:48 Problem Notes None recorded. Procedures Surgical History Date Name Laterality Status Provider Name and Address Organization Details Recorded Time 09/19/19 25 Post hospital/SNF follow-up/Transiti onal Care completed Cassidy Fisher [facility] 09/19/2024 15:19:18 02/07/20 24 Medicare Wellness Visit completed Radha Larry MA [facility] 02/07/2024 08:11:21 08/23/20 23 [place] Sleepiness Scale completed Angie Power MD [address] [place] [address], [address], [facility] 2023 10:16:31 02/03/20 23 Medicare Wellness Visit completed Radha Larry MA [facility] 02/02/2023 07:53:38 02/01/20 22 Medicare Wellness Visit completed Radha Larry MA [facility] 01/31/2022 08:02:59 02/01/20 22 Alcohol use screening completed Radha Larry MA [facility] 01/31/2022 08:02:59 02/01/20 22 Cardiovascular disease risk reduction counseling completed Radha Larry MA [facility] 01/31/2022 08:02:59 02/01/20 22 Medicare Risk for Falls Screen completed Radha Larry [facility] [place] 01/31/2022 08:44:32 01/07/20 22 Other (specify) completed CHRISTOPHER Li-Jeremiah [address] [place], [address], [facility] 04/24/2022 13:58:39 11/11/19 21 Medicare Wellness Visit completed Melody Macias [facility] [place] 11/11/2020 09:45:15 11/11/19 21 prevention-cardiov ascular risk reduction counseling completed Melodyrosendo Macias [facility] [place] 11/11/2020 09:45:15 11/11/19 21 prevention-annual alcohol misuse screening completed Melody Macias [facility] [place] 11/11/2020 09:45:15 11/11/19 21 Advanced Care Planning completed Melodyrosendo Macias [facility] [place] 11/11/2020 09:45:16 09/21/19 21 48203: Therapeutic Exercise completed Abigail Calderon, PT [address] [place], [address], [facility] 09/21/2020 09:35:01 08/24/20 20 [address]443: Therapeutic Exercise completed Abigail Calderon, PT [address] [place], [address], [facility] 08/24/2020 09:54:03 08/19/20 20 Post hospital/SNF follow-up/Transiti onal Care completed Brissa Schneider [facility] 08/19/2020 14:08:49 08/04/20 20 Physical Activity Counselling completed Abigail Calderon, PT [address] [place], [address], [facility] 08/04/2020 10:16:50 08/04/20 20 [address]330: PT Eval Low Complexity completed Abigail Calderon, PT [address] [place], [address], [facility] 08/04/2020 10:16:53 05/12/20 20 Colonoscopy completed Angie Power MD [address] [place] [address], [address], [facility] 11/11/2020 20:30:20 11/10/19 20 Medicare Wellness Visit completed Camden Valerio [facility] 11/10/2019 14:06:43 11/10/19 20 prevention-cardiov ascular risk reduction counseling completed Camden Valerio [facility] 11/10/2019 14:06:43 11/10/19 20 prevention-annual alcohol misuse screening completed Camden Valerio [facility] 11/10/2019 14:06:43 12/14/19 19 POC Strep Testing completed Krystal Esquivel LPN [facility] 12/16/2018 12:21:04 09/26/19 19 Medicare Wellness Visit completed Jing Wade [facility] 09/26/2018 08:27:57 09/26/19 19 Cerumen [facility] 09:39:33 09/26/19 19 Advanced Care Planning completed Angie Power MD [address] [place] [address], [address], [facility] 09/26/2018 09:24:45 09/24/19 18 Medicare Wellness Visit completed Jing Wade [facility] 09/24/2017 09:47:16 09/24/19 18 Advanced Care Planning completed Jing Wade [facility] 09/24/2017 09:39:01 09/30/19 16 Cerumen Removal completed Angie Power MD [address] [place] [address], [address], [facility] 09/30/2015 20:25:35 09/13/20 15 Medicare Wellness Visit completed Jing Wade [facility] 09/13/2015 09:53:00 09/03/20 14 [facility] 09/[facility]2014 09:54:57 09/01/20 13 Medicare Wellness Visit completed Eilse Hart [facility] [place] 09/01/2013 09:56:59 08/26/20 12 Medicare Wellness Visit completed Jing Wade CMA [facility] 08/26/2012 11:30:58 08/24/20 11 Medicare Wellness Visit completed Jing Wade CMA [facility] 08/24/2011 10:05:34 01/21/20 10 Colonoscopy completed Angie Power MD [address] [place] [address], [address], [facility] 09/07/2013 16:13:37 Tubal Ligation completed Not Available [facility] 08/03/2011 06:06:16 Imaging Results None recorded. 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 Moderate 1-2 Per Day With Dinner [email or web address] Information not available 09/13/2015 Do You Wear A Helmet When Biking? Yes Information not available 09/01/2013 What Is Your Level Of Caffeine Consumption? Occasional 2 Cups Per Day [email or web address] Information not available 05/18/2011 What Type Of Diet Are You Following? REGULAR [id number] Information not available 08/03/2011 Which Illicit Or Recreational Drugs Have You Used? None Information not available 09/13/2015 Do You Or Have You Ever Used E-cigarettes Or Vape? 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 16+yearssince lastcigarette Information not available 09/13/2015 How Many Days In The Past Year Have You Had A Heavy Drinking Consumption (4+ Female, 5+ Male)? 0 Information not available 09/13/2015 Live Alone Or With Others? With Others [id number] Information not available 08/03/2011 Does The Patient Have Difficulty Speaking Venezuelan? No Information not available 09/13/2015 Does The Patient Have Difficulty Reading Venezuelan? No Information not available 09/13/2015 Patient Has Health Care Proxy Signed And In Chart Yes Son Edwin Daughter Regi [email or web address] Information not available 09/26/2018 MOLST Form Signed [...] pneumococcal polysaccharide PPV23 1 completed Not Available [facility] 10/04/2019 02:14:54 Influenza, split virus, trivalent, preservative 1 completed Not Available [facility] 10/04/2019 02:18:30 Influenza, split virus, trivalent, preservative 2 completed Not Available [facility] 10/04/2019 02:18:37 Influenza, split virus, trivalent, PF 3 completed Not Available [facility] 10/04/2019 02:29:25 Tdap 0 completed Not Available [facility] 11/16/2022 12:25:58 influenza, unspecified formulation 4 completed Not Available [facility] 11/16/2022 12:25:58 Pneumococcal conjugate PCV 13 5 completed Not Available [facility] 11/16/2022 12:25:58 influenza, unspecified formulation 5 completed Not Available [facility] 11/16/2022 12:25:58 Influenza, high-dose, trivalent, PF 6 completed Not Available [facility] 11/16/2022 12:25:58 influenza, unspecified formulation 8 completed Not Available [facility] 11/16/2022 12:25:58 Influenza, high-dose, trivalent, PF 8 completed DANIEL Mccullough, [facility] 02/07/2024 09:59:05 Td (adult), 2 Lf tetanus toxoid, preservative free, adsorbed 0 completed Angie Power MD [address] [place] [address], [address], [facility] 11/10/2019 14:50:04 Influenza, high-dose, trivalent, PF 9 completed Not Available [facility] 11/16/2022 12:25:58 pneumococcal polysaccharide PPV23 9 completed Not Available [facility] 11/16/2022 12:25:58 Influenza, split virus, quadrivalent, preservative 9 completed Not Available [facility] 11/16/2022 12:25:57 pneumococcal polysaccharide PPV23 9 completed Not Available [facility] 11/16/2022 12:25:58 Influenza, split virus, quadrivalent, preservative 0 completed Not Available [facility] 11/16/2022 12:25:57 COVID-19, mRNA, LNP-S, PF, 100 mcg/0.5mL dose or 50 mcg/0.25mL dose 1 completed Not Available [facility] 11/16/2022 12:25:57 COVID-19, mRNA, LNP-S, PF, 100 mcg/0.5mL dose or 50 mcg/0.25mL dose 1 completed Not Available [facility] 11/16/2022 12:25:57 COVID-19, mRNA, LNP-S, PF, 100 mcg/0.5mL dose or 50 mcg/0.25mL dose 1 completed Not Available [facility] 11/16/2022 12:25:58 COVID-19, mRNA, LNP-S, PF, 100 mcg/0.5mL dose or 50 mcg/0.25mL dose 2 completed Not Available [facility] 11/16/2022 12:25:57 COVID-19, mRNA, LNP-S, PF, 30 mcg/0.3 mL dose 2 completed Not Available [facility] 11/16/2022 12:25:58 Influenza, split virus, trivalent, PF 4 completed Cassidy Phillip null, [facility] 09/19/2024 15:49:32 COVID-19, mRNA, LNP-S, PF, 50 mcg/0.5 mL 4 completed Cassidy Phillip null, [facility] 09/19/2024 15:50:04 Past Encounters Encounter ID Performer Location Encounter Start Date Encounter Closed Date Diagnosis/Indication Diagnosis SNOMED-CT Code Diagnosis ICD10 Code Diagnosis Note [id number] Angie Power MD FP, [facility], OFFICE [address] [place] [address] 06/05/2024 09:04:16 06/05/2024 13:46:23 Active or passive immunization 117331820 Z23 Shingles advised 01/31/22 as Pt completed RSV, Flu and COVID 08/23/23 as Flu: declines 06/05/24 as Cervical radiculopathy 22179848 M54.12 [id number] Angie Power MD FP, [facility], OFFICE [address] [place] [address] 06/25/2024 10:23:38 06/25/2024 10:57:58 Active or passive immunization 536654326 Z23 Flu: has apptShingr ix: aware at pharmacy Cervical radiculopathy 95561381 M54.12 unable to get into [facility] PT until Mid July, will try [facility] Hypothyroidism 21134123 E03.9 TSH normal range with levothyrox ine 125 mcg dose dailyrefer ral to endocrine per pt request due to symptoms Scalp itchy 887486003 L2 9.89 referral to esthetic dermatologist also, may be allergic to certain ingredient in meds? Health Concerns Section Related Observation LastModified by Organization Detai ls LastModified Time None Recorded Concern Status LastModified by Organization Details LastModified Time None Recorded Payers Encounter Date Sequence Insurance Name Policy Number Policy Herron Covered Member ID Herron Member ID Guarantor Name 06/25/2024 1 [place] [employer] Mary D Kostek [id number] Mary Kostek 06/25/2024 2 [place] [id number] Mary D Kostek [id number] Mary Kostek Notes Date Note Type [...] March 2024 : 2.57 Angie Power MD [address] [place] [address], [address], [facility] 06/25/2024 10:55:12 OBGyn Episode No OBEpisode recorded.
== END 2024-09-22 09:14 | disposition home or self-care (01) ==
DX: S42.301A Unspecified fracture of shaft of humerus, right arm, initial encounter for closed fracture (principal)
CPT/HCPCS: 99213

== ENCOUNTER → 2024-09-22 08:33 | Outpatient (BNV) | payer MEDICARE, SELFPAY | PROVIDERS: Visit Provider Radiology Diagnostic Radiology | DX: S42.301D Unspecified fracture of shaft of humerus, right arm, subsequent encounter for fracture with routine healing (principal) | CPT/HCPCS: 73060 ==